=== PATIENT | male | born 1960 | race Caucasian/White ===

== ENCOUNTER 2016-04-30 | Outpatient (CLI) | payer MEDICARE, MEDICAID | END 2016-04-30 23:59 | disposition critical access hospital (66) | CPT/HCPCS: A0425; A0429 ==

== ENCOUNTER 2016-04-30 20:45 | Emergency (ER) | payer MEDICARE, MEDICAID ==
[2016-04-30] MEDS ORDERED: SODIUM CHLORIDE 0.9% 1,000 ML IV ONE (21:03)
[2016-04-30] MEDS ORDERED: diazePAM INJ 5 MG/ML SYRINGE IVP STA (21:03)
[2016-04-30] MEDS ORDERED: fentaNYL 100 MCG/2 ML VIAL IVP STA ×2 (21:03→21:53)
[2016-04-30] MEDS ORDERED: fentaNYL 100 MCG/2 ML VIAL ONE ×2 (21:20→21:58)
[2016-04-30] MEDS ORDERED: diazePAM INJ 5 MG/ML SYRINGE ONE (21:20)
[2016-04-30] MEDS ORDERED: NITROGLYCERIN SL 0.4 MG TABLET SL STA (21:37)
[2016-04-30] MEDS ORDERED: GLUCAGON 1 MG/ML VIAL IVP STA (21:38)
[2016-04-30] MEDS ORDERED: NITROGLYCERIN SL 0.4 MG TABLET SL ONE (21:45)
[2016-04-30] MEDS ORDERED: GLUCAGON 1 MG/ML VIAL ONE (21:45)
[2016-04-30] MEDS ORDERED: WATER FOR INJECTION,STERILE 10 ML ONE (21:48)
[2016-04-30] MEDS ORDERED: HYDROmorphone 1 MG/ML SYRINGE IVP STA (22:47)
[2016-04-30] MEDS ORDERED: HYDROmorphone 1 MG/ML SYRINGE ONE (22:51)
== END 2016-04-30 23:48 | disposition short-term general hospital (02) ==
DX: T18.128A Food in esophagus causing other injury, initial encounter (principal); X58.XXXA Exposure to other specified factors, initial encounter; E11.9 Type 2 diabetes mellitus without complications; Z79.4 Long term (current) use of insulin; G40.909 Epilepsy, unspecified, not intractable, without status epilepticus
CPT/HCPCS: 36415; 71010; 80053; 83690; 85025; 93005; 93010; 96361; 96374; 96375; 96376; 99284; 99285; A9270; J1170

== ENCOUNTER 2016-05-01 | Outpatient (CLI) | payer MEDICARE, MEDICAID | END 2016-05-01 00:01 | disposition short-term general hospital (02) | CPT/HCPCS: A0170; A0425; A0426 ==

== ENCOUNTER 2017-10-22 03:17 | Outpatient (CLI) | payer MEDICARE, MEDICAID | END 2017-10-22 03:18 | disposition critical access hospital (66) | LOC: EMS 03:17 | PROVIDERS: ATTEND Surgery | DX: S09.90XA Unspecified injury of head, initial encounter (principal); R10.9 Unspecified abdominal pain; R55 Syncope and collapse; W18.39XA Other fall on same level, initial encounter; Y92.031 Bathroom in apartment as the place of occurrence of the external cause | CPT/HCPCS: A0425; A0429 ==

== ENCOUNTER 2017-10-22 03:36 | Inpatient (IN) | payer MEDICARE, MEDICAID ==
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
[2017-10-22] MEDS ORDERED: MORPHINE 10 MG/ML VIAL IVP STA ×2 (04:07→04:55)
[2017-10-22 04:38] LABS: BASOPHILS % (AUTO) 0.2 %; EOSINOPHILS # (AUTO) 0.2 10^3/uL (0.0-0.7); EOSINOPHILS % (AUTO) 1.6 %; HGB - HEMOGLOBIN 13.5 g/dL (14.0-18.0); LYMPHOCYTES # (AUTO) 1.1 10^3/uL (1.5-3.5); LYMPHOCYTES % (AUTO) 8.9 %; MEAN CORPUSCULAR HEMOGLOBIN 29.7 pg (27.0-31.0); MEAN CORPUSCULAR HGB CONC 33.5 g/dL (32.0-36.0); MEAN CORPUSCULAR VOLUME 88.4 fL (80.0-94.0); MEAN PLATELET VOLUME 8.2 fL (7.4-11.4); MONOCYTES # (AUTO) 0.7 10^3/uL (0.0-1.0); MONOCYTES % (AUTO) 5.8 %; NEUTROPHILS # (AUTO) 10.4 10^3/uL (1.5-6.6); NEUTROPHILS % (AUTO) 83.5 %; PLT - PLATELET COUNT 179 10^3/uL (130-450); RED BLOOD COUNT 4.54 10^6/uL (4.70-6.10); RED CELL DISTRIBUTION WIDTH 15.2 % (12.0-15.0); WHITE BLOOD COUNT 12.5 x10^3/uL (4.8-10.8)
[2017-10-22 04:48] LABS: BUN - BLOOD UREA NITROGEN 12 mg/dL (6-20); CALCIUM 10.1 mg/dL (8.5-10.3); CARBON DIOXIDE - CO2 22 mmol/L (21-32); CHLORIDE 100 mmol/L (101-111); CREATININE 0.5 mg/dL (0.6-1.2); GFR - MDRD 172 (>89); GLUCOSE 337 mg/dL (70-100); SODIUM 131 mmol/L (135-145)
[2017-10-22] MEDS ORDERED: ONDANSETRON 4 MG/2 ML VIAL IVP STA (05:06)
--- NOTE | 2017-10-22 05:19 | CT Report ---
Procedure Date: 10/22/2017 Accession Number: [id number] / [id number] Procedure: CT - Head W/O CPT Code: FULL RESULT: EXAM: CT HEAD EXAM DATE: 10/22/2017 04:36 AM. CLINICAL HISTORY: Fall, loss of consciousness , headache. COMPARISON: None. TECHNIQUE: Multiaxial CT images were obtained from the foramen magnum to the vertex. Reformats: Sagittal and coronal. IV contrast: None. In accordance with CT protocol optimization, one or more of the following dose reduction techniques were utilized for this exam: automated exposure control, adjustment of mA and/or KV based on patient size, or use of iterative reconstructive technique. FINDINGS: Parenchyma: No intraparenchymal hemorrhage. No evidence of mass, midline shift, or CT findings of infarction. Hall-white differentiation is distinct. Extraaxial Spaces: Normal for age. No subdural or epidural collections identified. Ventricles: There is mild prominence of the ventricles. No mass effect. No midline shift. Sinuses and Orbits: Imaged paranasal sinuses, orbits, and mastoids show no significant abnormality. Bones: No evidence of fracture or calvarial defect. Other: There is a right periorbital hematoma.. IMPRESSION: No acute intracranial process. RADIA
--- NOTE | 2017-10-22 05:21 | XRAY Report ---
Procedure Date: 10/22/2017 Accession Number: [id number] / [id number] Procedure: XR - Chest 2 View X-Ray CPT Code: 69981 FULL RESULT: EXAM: CHEST RADIOGRAPHY EXAM DATE: 10/22/2017 04:44 AM. CLINICAL HISTORY: Syncope. COMPARISON: CHEST 1 VIEW 04/30/2016. TECHNIQUE: 2 views. FINDINGS: Lungs/Pleura: No alveolar consolidation or pleural effusion seen. No pneumothorax. Small lung volumes. Mediastinum: Rotated. Heart size upper normal. Other: None. IMPRESSION: 1. Rotated exam with small lung volumes and borderline heart size. RADIA
--- NOTE | 2017-10-22 05:50 | CT Report ---
Procedure Date: 10/22/2017 Accession Number: [id number] / [id number] Procedure: CT - Facial Bones W/O CPT Code: FULL RESULT: EXAM: CT MAXILLOFACIAL WITHOUT CONTRAST EXAM DATE: 10/22/2017 04:59 AM. CLINICAL HISTORY: Fall, right facial pain, swelling. COMPARISONS: None. TECHNIQUE: Thin-section axial images were acquired of the face without contrast. Post-processing: Coronal and sagittal reformats. Other: None. In accordance with CT protocol optimization, one or more of the following dose reduction techniques were utilized for this exam: automated exposure control, adjustment of mA and/or KV based on patient size, or use of iterative reconstructive technique. FINDINGS: Orbits: There is a right periorbital hematoma. Globe appears intact. Posterior to the right globe there are linear bands of fluid or hemorrhage. There is no proptosis. Left orbit unremarkable. Soft tissues: Otherwise unremarkable. Bones: There are fractures of bilateral intranasal bones. No additional fracture or bone lesion. Temporomandibular Joints: The temporomandibular joints are symmetric and normally located. Sinuses: Normal. No mucosal thickening or fluid levels. Other: None. IMPRESSION: 1. Mildly angulated anterior nasal bone fractures. No additional maxillofacial fracture. 2. Right periorbital hematoma and right intraorbital hemorrhage or edema without significant mass effect. RADIA
--- NOTE | 2017-10-22 05:54 | CT Report ---
Procedure Date: 10/22/2017 Accession Number: [id number] / [id number] Procedure: CT - Cervical Spine W/O CPT Code: FULL RESULT: EXAM: CT CERVICAL SPINE WITHOUT CONTRAST DATE: 10/22/2017 05:00 AM. HISTORY: Fall, neck pain. COMPARISONS: None. TECHNIQUE: Thin-section axial images were acquired of the cervical spine without contrast. Post-processing: Coronal and sagittal reformats. Other: None. In accordance with CT protocol optimization, one or more of the following dose reduction techniques were utilized for this exam: automated exposure control, adjustment of mA and/or KV based on patient size, or use of iterative reconstructive technique. FINDINGS: Alignment: No scoliosis or spondylolisthesis. Bones: No fracture or bone lesion. Interspace Levels/Facets: There are disk osteophyte complexes with mild central canal narrowing at C3-C4, C4-C5, C5-C6, and C6-C7. There is mild right C3-C4, moderate right C4-C5, mild bilateral C5-C6, and mild left C6-C7 neural foraminal narrowing. Musculature: Normal. No fatty atrophy. Other: The paravertebral and prevertebral soft tissues are unremarkable. The lung apices are clear. IMPRESSION: No evidence of cervical spine fracture. RADIA
[2017-10-22] MEDS ORDERED: SODIUM CHLORIDE 0.9% 1,000 ML IV STA (06:01)
[2017-10-22] MEDS: FAMOTIDINE 20 MG TABLET PO SCH (13:29)
[2017-10-22] MEDS: INSULIN ASPART 300 UNIT/3 ML PEN SUBQ SCH ×3 (13:29→21:57)
[2017-10-22] MEDS: oxyCODONE 5 MG TABLET PO PRN (13:32)
[2017-10-22] MEDS: ACETAMINOPHEN 325 MG TABLET PO PRN ×2 (13:32→17:19)
[2017-10-22] MEDS: carBAMazepine ER 200 MG TABLET PO SCH ×2 (13:33→19:58)
[2017-10-22] MEDS: SODIUM CHLORIDE FLUSH 0.9% 10 ML SYRINGE IVP SCH ×2 (13:34→16:08)
[2017-10-22] MEDS: SODIUM CHLORIDE 0.9% 1,000 ML IV SCH (13:36)
[2017-10-22 13:49] LABS: MUDS CUTOFF CONCENTRATIONS CUTOFF CONC BELOW:
[2017-10-22 14:01] LABS: AMPHETAMINE SCREEN,URINE NEGATIVE (NEGATIVE); BENZODIAZEPINES SCREEN, URINE NEGATIVE (NEGATIVE); COCAINE SCREEN URINE NEGATIVE (NEGATIVE); METHADONE SCREEN, URINE NEGATIVE (NEGATIVE); METHAMPHETAMINES SCREEN, URINE NEGATIVE (NEGATIVE); OPIATE SCREEN, URINE POSITIVE (NEGATIVE); OXYCODONE SCREEN, URINE NEGATIVE (NEGATIVE); PROPOXYPHENE SCREEN, URINE NEGATIVE (NEGATIVE); TRICYCLIC ANTIDEPRESSANT,URINE NEGATIVE (NEGATIVE)
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
[2017-10-22] MEDS: HYDROmorphone 1 MG/ML CARPUJECT IVP PRN ×2 (18:21→21:56)
[2017-10-22] MEDS: SODIUM CHLORIDE FLUSH 0.9% 10 ML SYRINGE IVP PRN ×2 (18:21→21:56)
[2017-10-22] MEDS: INSULIN GLARGINE 300 UNIT/3 ML PEN SUBQ SCH (18:21)
[2017-10-22] MEDS: ACETAMINOPHEN 325 MG TABLET PO SCH ×2 (19:25→19:58)
[2017-10-22] MEDS: ATORVASTATIN 40 MG TABLET PO SCH (19:58)
[2017-10-22] MEDS: BACITRACIN/POLYMYXIN OPHTH OINT 3.5 GM RIGHTEYE SCH ×2 (19:59→20:00)
--- NOTE | 2017-10-23 00:18 | Ultrasound Report ---
Procedure Date: 10/22/2017 Accession Number: [id number] / [id number] Procedure: US - Carotid Doppler Complete CPT Code: FULL RESULT: EXAM: BILATERAL CAROTID AND VERTEBRAL ARTERY DUPLEX DOPPLER ULTRASOUND: EXAM DATE: 10/22/2017 09:05 PM CLINICAL HISTORY: Syncope and collapse. COMPARISON: None. TECHNIQUE: Grayscale imaging, color Doppler, and duplex spectral Doppler were used to evaluate the carotid and vertebral arteries bilaterally. Static images were obtained. FINDINGS: Grayscale evaluation of the carotid arteries demonstrates moderate primarily calcified plaque throughout both internal carotid and right greater than left distal common carotid arteries. Normal antegrade flow is present in bilateral vertebral arteries. VELOCITIES (cm/sec): Right: RCCA Prox: PSV 78.8 cm/sec. RCCA Dist: PSV 78.8 cm/sec, EDV 19.5 cm/sec. RECA: PSV 170.3 cm/sec. R Bulb: PSV 52.2 cm/sec, EDV 2.1 cm/sec, ICA/CCA ratio .7. JULIETA Prox: PSV 126.6 cm/sec, EDV 25.8 cm/sec, ICA/CCA ratio 1.6. JULIETA Mid: PSV 74 cm/sec, EDV 24.7 cm/sec, ICA/CCA ratio 1.0. JULIETA Dist: PSV 59.4 cm/sec, EDV 22.4 cm/sec, ICA/CCA ratio .7. RVA: PSV 46.7 cm/sec. RVA flow direction: Antegrade. Left: LCCA Prox: PSV 87.8 cm/sec. LCCA Dist: PSV 85.6 cm/sec, EDV 22.9 cm/sec. LECA: PSV 122.9 cm/sec. L Bulb: PSV 100.8 cm/sec, EDV 24.4 cm/sec, ICA/CCA ratio 1.2. LICA Prox: PSV 68.1 cm/sec, EDV 27.1 cm/sec, ICA/CCA ratio .8. LICA Mid: PSV 70.0 cm/sec, EDV 42.0 cm/sec, ICA/CCA ratio .8. LICA Dist: PSV 66.3 cm/sec, EDV 28 cm/sec, ICA/CCA ratio .8. LVA: PSV 49.3 cm/sec. LVA flow direction: Antegrade. ICA diameter stenosis: Right: <50% by velocity and <70% by NASCET criteria. Left: <50% by velocity and <70% by NASCET criteria. IMPRESSION: 1. Moderate bilateral distal common and internal carotid artery atheromatous plaque with no hemodynamically significant stenosis. General Recommendations: Stenosis =50% ICA - Follow-up ultrasound 6-12 months Stenosis <50% ICA - High Risk Patient with plaque - Follow-up ultrasound 1-2 years Normal Study but High Risk Patient - Follow-up ultrasound 3-5 years Management recommendations and diagnostic criteria are based on current IAC endorsed standards in Carotid Artery Stenosis: Grayscale and Doppler Ultrasound Diagnosis. Validated velocity measurements with angiographic measurements and velocity criteria are extrapolated from diameter data as defined by the Society of Radiologists in Ultrasound Consensus Conference Radiology 2003; 229;340-346. RADIA
[2017-10-23] MEDS: oxyCODONE 5 MG TABLET PO PRN ×2 (01:19→12:58)
[2017-10-23] MEDS: ACETAMINOPHEN 325 MG TABLET PO SCH ×5 (01:19→21:45)
[2017-10-23] MEDS: SODIUM CHLORIDE 0.9% 1,000 ML IV SCH ×3 (02:42→22:42)
[2017-10-23] MEDS: HYDROmorphone 1 MG/ML CARPUJECT IVP PRN ×8 (02:49→22:38)
[2017-10-23] MEDS: SODIUM CHLORIDE FLUSH 0.9% 10 ML SYRINGE IVP PRN ×2 (02:49→05:26)
[2017-10-23] MEDS: SODIUM CHLORIDE FLUSH 0.9% 10 ML SYRINGE IVP SCH ×3 (03:27→17:23)
[2017-10-23 06:55] LABS: BASOPHILS % (AUTO) 0.1 %; EOSINOPHILS # (AUTO) 0.3 10^3/uL (0.0-0.7); EOSINOPHILS % (AUTO) 4.7 %; LYMPHOCYTES # (AUTO) 1.9 10^3/uL (1.5-3.5); LYMPHOCYTES % (AUTO) 31.9 %; MEAN CORPUSCULAR HEMOGLOBIN 29.8 pg (27.0-31.0); MEAN CORPUSCULAR HGB CONC 33.4 g/dL (32.0-36.0); MEAN CORPUSCULAR VOLUME 89.3 fL (80.0-94.0); MEAN PLATELET VOLUME 8.2 fL (7.4-11.4); MONOCYTES # (AUTO) 0.4 10^3/uL (0.0-1.0); MONOCYTES % (AUTO) 7.2 %; NEUTROPHILS # (AUTO) 3.4 10^3/uL (1.5-6.6); NEUTROPHILS % (AUTO) 56.1 %; PLT - PLATELET COUNT 159 10^3/uL (130-450); RED BLOOD COUNT 4.04 10^6/uL (4.70-6.10); RED CELL DISTRIBUTION WIDTH 15.2 % (12.0-15.0)
[2017-10-23 07:08] LABS: ALBUMIN 3.4 g/dL (3.2-5.5); ALBUMIN/GLOBULIN RATIO 1.3 (1.0-2.2); BILIRUBIN,TOTAL 0.5 mg/dL (0.2-1.0); CALCIUM 9.1 mg/dL (8.5-10.3); CREATININE 0.4 mg/dL (0.6-1.2)
[2017-10-23 08:19] LABS: HB2 TOTAL 11.9 g/dL; HEMOGLOBIN A1C 1.08 g/dL; HEMOGLOBIN A1C % 10.5 % (4.6-6.2)
[2017-10-23] MEDS: INSULIN ASPART 300 UNIT/3 ML PEN SUBQ SCH ×4 (08:30→21:44)
[2017-10-23] MEDS: carBAMazepine ER 200 MG TABLET PO SCH ×2 (08:32→21:45)
[2017-10-23] MEDS: FENOFIBRATE 160 MG PO SCH (08:33)
[2017-10-23] MEDS: BACITRACIN/POLYMYXIN OPHTH OINT 3.5 GM RIGHTEYE SCH ×4 (08:33→21:45)
[2017-10-23] MEDS: FOLIC ACID 1 MG TABLET PO SCH (08:33)
[2017-10-23] MEDS: FAMOTIDINE 20 MG TABLET PO SCH (08:33)
[2017-10-23] MEDS: POLYETHYLENE GLYCOL 3350 17 GM PACKET PO SCH (08:34)
[2017-10-23] MEDS: ONDANSETRON ODT 4 MG TABLET TL PRN (10:39)
[2017-10-23] MEDS: INSULIN GLARGINE 300 UNIT/3 ML PEN SUBQ SCH (17:27)
[2017-10-23] MEDS: ATORVASTATIN 40 MG TABLET PO SCH (21:44)
--- NOTE | 2017-10-23 22:52 | PROVIDER PROGRESS NOTE ---
Subjective - Prog Note Date Prog Note Date: 10/23/17 Prog Note Time: 08:00 - Subjective Pt reports feeling: Improved Subjective: Lenoard states that his eye is "a little less sore". He denies any new symptoms such as increased shortness of breath, chest pain, nausea, vomiting, or a new cough. He states that he is eating ok. Current Medications - Current Medications Current Medications: Active Medications Acetaminophen (Tylenol) 650 mg PO Q4HR [facility] Last Admin: 10/23/17 21:45 Dose: 650 mg Atorvastatin Calcium (Lipitor) 40 mg PO QPM [facility] Last Admin: 10/23/17 21:44 Dose: 40 mg Bacitracin/Polymyxin B Sulfate (Polysporin Ophth Oint) 1 applic RIGHTEYE QID [facility] Last Admin: 10/23/17 21:45 Dose: 1 applic Carbamazepine (Tegretol Xr) 800 mg PO BID [facility] Last Admin: 10/23/17 21:45 Dose: 800 mg Famotidine (Pepcid) 20 mg PO DAILY [facility] Last Admin: 10/23/17 08:33 Dose: 20 mg Folic Acid () 1 mg PO DAILY [facility] Last Admin: 10/23/17 08:33 Dose: 1 mg Hydromorphone HCl (Dilaudid Inj Carp) 1 mg IVP Q2HR PRN PRN Reason: PAIN Last Admin: 10/23/17 22:38 Dose: 1 mg Insulin Aspart (Novolog) 1 - 5 unit SUBQ 0800,1200,1700,2100 [facility] PRN Reason: Protocol Last Admin: 10/23/17 21:44 Dose: 1 unit Insulin Glargine (Lantus Solostar) 40 unit SUBQ DAILY [facility] Ondansetron HCl (Zofran Odt) 4 mg TL Q6HR PRN PRN Reason: Nausea / Vomiting Last Admin: 10/23/17 10:39 Dose: 4 mg Oxycodone HCl (Roxicodone) 5 mg PO BID PRN PRN Reason: PAIN Last Admin: 10/23/17 12:58 Dose: 5 mg (Canagliflozin [ Invokana] 100 Mg) Tab 1 each PO DAILY [facility] Last Admin: 10/23/17 08:33 Dose: 1 each (Exenatide [Byetta] (10 Mcg) Inj) 1 each SUBQ BIDAC [facility] Last Admin: 10/22/17 16:06 Dose: 1 each (Fenofibrate [ Fenofibrate] 160 Mg) Capsule 1 each PO DAILY [facility] Last Admin: 10/23/17 08:33 Dose: Not Given Polyethylene Glycol (Miralax) 17 gm PO DAILY [facility] Last Admin: 10/23/17 08:34 Dose: Not Given Sodium Chloride (Normal Saline Flush 0.9%) 10 ml IVP PRN PRN PRN Reason: NEEDED PER PROVIDER ORDERS Last Admin: 10/23/17 05:26 Dose: 10 ml Sodium Chloride (Normal Saline Flush 0.9%) 10 ml IVP 0100,0900,1700 [facility] Last Admin: 10/23/17 17:23 Dose: Not Given Insulin Glargine [Lantus] 35 unit SUBQ 1700 08/09/12 Metformin HCl [Metformin HCl ER] 1,000 mg PO BIDWM 08/09/12 Atorvastatin Calcium 40 mg PO QPM 10/22/17 Canagliflozin [Invokana] 100 mg PO DAILY 10/22/17 Carbamazepine [Carbamazepine ER] 800 mg PO BID 10/22/17 Exenatide [Byetta] 10 mcg SUBQ BIDAC 10/22/17 Fenofibrate [Fenofibrate] 160 mg PO DAILY 10/22/17 Folic Acid [Folic Acid] 1 mg PO DAILY 10/22/17 Isradipine [Isradipine] 5 mg PO DAILY 10/22/17 Lisinopril 10 mg PO DAILY 10/22/17 Oxycodone HCl 5 mg PO BID PRN 10/22/17 Objective - Vital Signs/Intake & Output Reviewed Vital Signs: Yes Vital Signs: Vital Signs x48h Temp Pulse Resp BP Pulse Ox 10/23/17 20:35 36.8 C 80 20 139/65 H 97 10/23/17 15:22 36.4 C L 76 20 112/69 96 Intake & Output: Intake & Output 10/20/17 10/21/17 10/22/17 10/23/17 23:59 23:59 23:59 23:59 Intake Total 1720 4216.667 Output Total 600 975 Balance 1120 3241.667 - Objective General Appearance: positive: No acute distress, Alert, Anxious Eyes Bilateral: positive: Other (right eye orbit has errythema, less overall swelling, and is still very painful during the exam.) Eyes: OD Abnormal EOM, OD Lid inflammation, OU Abnormal pupil (pin point bilateral pupils- no changes from 24 hours earlier) ENT: positive: ENT inspection nml, Pharynx nml, No signs of dehydration Neck: positive: Nml inspection, Thyroid nml, No JVD, Lymphadenopathy (R), Lymphadenopathy (L), Stiff neck Respiratory: positive: Chest non-tender, No respiratory distress, Breath sounds nml Cardiovascular: positive: Regular rate & rhythm, Systolic murmur, Decreased pulse(s) Peripheral Pulses: 1+ Radial (R), 1+ Radial (L) Abdomen: positive: Non-tender, Nml bowel sounds, Other (obese, soft) Skin: positive: No rash, Warm, Dry Extremities: positive: Non-tender, Full ROM, Pedal edema, Joint swelling Neurologic/Psychiatric: positive: Oriented x3, CN's nml (2-12), Motor nml, Sensation nml, Weakness, Depressed mood/affect Reflexes: Bicep (R): 3+, Bicep (L): 3+ - Lab Results Fish Bones: 10/23/17 05:54 10/23/17 05:54 Other Labs: Lab Results x24hrs 10/23/17 10/23/17 10/23/17 Range/Units 05:54 05:54 05:54 WBC (4.8-10.8) x10^3/uL RBC (4.70-6.10) 10^6/uL Hgb (14.0-18.0) g/dL Hct (42.0-52.0) % MCV (80.0-94.0) fL MCH (27.0-31.0) pg MCHC (32.0-36.0) g/dL RDW (12.0-15.0) % Plt Count (130-450) 10^3/uL MPV (7.4-11.4) fL Neut # (Auto) (1.5-6.6) 10^3/uL Lymph # (Auto) (1.5-3.5) 10^3/uL Pierce # (Auto) (0.0-1.0) 10^3/uL Eos # (Auto) (0.0-0.7) 10^3/uL Baso # (Auto) (0.0-0.1) 10^3/uL Absolute Nucleated RBC x10^3/uL Nucleated RBC % /100WBC Sodium 136 (135-145) mmol/L Potassium 3.7 (3.5-5.0) mmol/L Chloride 106 (101-111) mmol/L Carbon Dioxide 24 (21-32) mmol/L Anion Gap 6.0 (6-13) BUN 14 (6-20) mg/dL Creatinine 0.4 L (0.6-1.2) mg/dL Estimated GFR (MDRD) 223 (>89) Glucose 147 H (70-100) mg/dL Glycated Hemoglobin (4.6-6.2) % Estim Average Glucose (70-100) Calcium 9.1 (8.5-10.3) mg/dL Magnesium 1.8 (1.7-2.8) mg/dL Total Bilirubin 0.5 (0.2-1.0) mg/dL AST 17 (10-42) IU/L ALT 26 (10-60) IU/L Alkaline Phosphatase 73 (42-121) IU/L Total Protein 6.0 L (6.7-8.2) g/dL Albumin 3.4 (3.2-5.5) g/dL Globulin 2.6 (2.1-4.2) g/dL Albumin/Globulin Ratio 1.3 (1.0-2.2) TSH 1.48 (0.34-5.60) uIU/mL 10/23/17 10/23/17 Range/Units 05:54 05:54 WBC 6.0 (4.8-10.8) x10^3/uL RBC 4.04 L (4.70-6.10) 10^6/uL Hgb 12.0 L (14.0-18.0) g/dL Hct 36.1 L (42.0-52.0) % MCV 89.3 (80.0-94.0) fL MCH 29.8 (27.0-31.0) pg MCHC 33.4 (32.0-36.0) g/dL RDW 15.2 H (12.0-15.0) % Plt Count 159 (130-450) 10^3/uL MPV 8.2 (7.4-11.4) fL Neut # (Auto) 3.4 (1.5-6.6) 10^3/uL Lymph # (Auto) 1.9 (1.5-3.5) 10^3/uL Pierce # (Auto) 0.4 (0.0-1.0) 10^3/uL Eos # (Auto) 0.3 (0.0-0.7) 10^3/uL Baso # (Auto) 0.0 (0.0-0.1) 10^3/uL Absolute Nucleated RBC 0.01 x10^3/uL Nucleated RBC % 0.1 /100WBC Sodium (135-145) mmol/L Potassium (3.5-5.0) mmol/L Chloride (101-111) mmol/L Carbon Dioxide (21-32) mmol/L Anion Gap (6-13) BUN (6-20) mg/dL Creatinine (0.6-1.2) mg/dL Estimated GFR (MDRD) (>89) Glucose (70-100) mg/dL Glycated Hemoglobin 10.5 H (4.6-6.2) % Estim Average Glucose 255 H (70-100) Calcium (8.5-10.3) mg/dL Magnesium (1.7-2.8) mg/dL Total Bilirubin (0.2-1.0) mg/dL AST (10-42) IU/L ALT (10-60) IU/L Alkaline Phosphatase (42-121) IU/L Total Protein (6.7-8.2) g/dL Albumin (3.2-5.5) g/dL Globulin (2.1-4.2) g/dL Albumin/Globulin Ratio (1.0-2.2) TSH (0.34-5.60) uIU/mL - Diagnostic Imaging Diagnostic Imaging Results: positive: Final report reviewed ABX Reporting Has patient been on IV antibiotics over the past 48 hours?: No Assessment/Plan - Problem List (1) Syncope and collapse Impression: The patient denies previous episodes of fainting. All testing thus far is not leading to a cardiac cause of this syncopal episode. The most likely cause still remains as taking inappropriate mixture of medications; leading to severe hypotension or severe hypoglycemia. The patient denies suicidal ideation for a possible intentional overdose. A head MRI was ordered for completeness of this work up, although this may have to be done on an out patient basis. Plan: Continue syncope work up and monitor for further episodes. Continue telemetry monitoring. (2) Blunt injury, right eye Impression: Opthalologist, Dr. Zimmerman gave a preliminary recommendation to have the patient be seen as out patient as soon as Wednesday. The type of surgery, if needed, would require a waiting time of about 5-7 days after the injury, but the extent of this eye injury is not known since the equipment necessary is not readily available in the inpatient hospital setting. The patient's right eye is overall improved since his admission and he can make attempts to open his upper lid. I can appreciate a positive red reflex today, which confirms that no acute bleeding is occurring. The patient continues to attest to being able to see objects, light, but they are blurred. This injury does not seem to affect his balance or ambulation. Plan: Continue with syncope work up and plan to discharge with prompt out patient full eye exam. Qualifiers: Encounter type: initial encounter Qualified Code(s): S05.8X1A - Other injuries of right eye and orbit, initial encounter (3) Head injury Impression: The patient has a history of this and this episode resulted in no cranial fractures, or bleeding. He complains of a headache, and a neck ache. He has a history of a seizure disorder. Plan: Continue to treat acute pain and monitor for changes in mental status. Qualifiers: Encounter type: subsequent encounter Qualified Code(s): S09.90XD - Unspecified injury of head, subsequent encounter (4) Diabetes mellitus type 2 in obese Impression: A hemoglobin A1C was ordered and found to be very elevated at 10.4%. The patient takes 4 medications for his diabetes including Lantus 35 units daily, Byetta, Invokana and Metformin. This is clearly not beneficial for him based on this A1C level, and we will formulate a better combination to prevent syncope and a sentinel event from reoccuring. Plan: Continue to hold metformin. Continue Lantus, SSI and blood sugar checks AC/HS. (5) OCD (obsessive compulsive disorder) Impression: The patient speaks about the same topics in a repeat fashion. He admits to obcessive behaviors at home with his daily cleaning routine. Plan: Consider medication to treat upon discharge. Qualifiers: Obsessive-compulsive disorder type: mixed obsessional thoughts and acts Qualified Code(s): F42.2 - Mixed obsessional thoughts and acts (6) Polypharmacy Impression: As per pharmacy review, the patient had an Invokana bottle with lisinopril, and atorvastatin mixed in the same bottle. He takes at least 11 different prescribed medications, not including OTC medications. Social work met with him and was able to find community resources and suggest a home health nurse visit and social work to be ordered as a home health need upon discharge. Plan: Continue to monitor and review meds in order to reduce amounts. (7) Seizure disorder Impression: The patient denies having a regular neurologist, but is prescribed Tegretol daily. He denies recent episodes, although this is still on the differential diagnosis list. Plan: Check a Tegretol serum blood level in the AM. (8) Anemia Impression: The patient has a suspected folate deficiency anemia based on his home medication of folic acid. I have ordered iron studies for the AM and his H/H today is considered low at 12.0 and 36.1. Plan: Await iron studies and continue folic acid. Qualifiers: Anemia type: folate deficiency
[2017-10-24] MEDS: ONDANSETRON ODT 4 MG TABLET TL PRN (00:04)
[2017-10-24] MEDS: SODIUM CHLORIDE FLUSH 0.9% 10 ML SYRINGE IVP SCH ×4 (00:04→17:59)
[2017-10-24] MEDS: HYDROmorphone 1 MG/ML CARPUJECT IVP PRN ×7 (00:42→22:05)
[2017-10-24] MEDS: SODIUM CHLORIDE FLUSH 0.9% 10 ML SYRINGE IVP PRN ×5 (00:43→22:05)
[2017-10-24] MEDS: ACETAMINOPHEN 325 MG TABLET PO SCH ×7 (02:00→23:56)
[2017-10-24] MEDS: oxyCODONE 5 MG TABLET PO PRN ×3 (02:01→20:53)
[2017-10-24 06:17] LABS: BASOPHILS % (AUTO) 0.2 %; EOSINOPHILS # (AUTO) 0.2 10^3/uL (0.0-0.7); EOSINOPHILS % (AUTO) 3.4 %; HGB - HEMOGLOBIN 12.3 g/dL (14.0-18.0); LYMPHOCYTES # (AUTO) 1.4 10^3/uL (1.5-3.5); LYMPHOCYTES % (AUTO) 22.3 %; MEAN CORPUSCULAR HGB CONC 34.5 g/dL (32.0-36.0); MEAN PLATELET VOLUME 8.2 fL (7.4-11.4); MONOCYTES # (AUTO) 0.4 10^3/uL (0.0-1.0); MONOCYTES % (AUTO) 6.9 %; NEUTROPHILS # (AUTO) 4.3 10^3/uL (1.5-6.6); NEUTROPHILS % (AUTO) 67.2 %; PLT - PLATELET COUNT 168 10^3/uL (130-450); RED BLOOD COUNT 4.12 10^6/uL (4.70-6.10); WHITE BLOOD COUNT 6.3 x10^3/uL (4.8-10.8)
[2017-10-24 06:26] LABS: ALBUMIN 3.5 g/dL (3.2-5.5); ALBUMIN/GLOBULIN RATIO 1.2 (1.0-2.2); BILIRUBIN,TOTAL 0.6 mg/dL (0.2-1.0); CALCIUM 9.1 mg/dL (8.5-10.3); CREATININE 0.4 mg/dL (0.6-1.2); TOTAL PROTEIN 6.4 g/dL (6.7-8.2)
[2017-10-24 06:44] LABS: % IRON SATURATION 13 % (20-50); CARBAMAZEPINE (TEGRETOL) 6.9 ug/mL; IRON 40 ug/dL (45-182); TOTAL IRON BINDING CAPACITY 316 ug/dL (250-450); TRANSFERRIN 226 mg/dL (180-329)
--- NOTE | 2017-10-24 07:52 | CONSULTATION NOTE ---
DATE OF SERVICE: 10/22/2017 Physician: Ruddy Zimmerman MD please verify date of service - none given Dictated 10/23 for consult 10/22? Thanks - please remove this note & s before signing HISTORY OF PRESENT ILLNESS: Patient was admitted yesterday to the med/surg [facility] in room 2200 after a syncopal episode and blunt trauma to his right eye. He awoke with blood on the floor and was transported to the emergency room. Dr. Kofi Rocha called me yesterday morning, informed me of the situation, and was curious whether or not he needed to be seen. Pt had a lid laceration but Dr. Rocha felt confident that the patient did not have an open globe. Nurse Practitioner Racheal Taylor on the ortiz noted that he had a good red reflex on her exam on the ortiz. PHYSICAL EXAMINATION: On exam, patient has hand motion and an obvious upper lid and lower lid hematoma with moderate swelling. His intraocular pressure to palpation through the lids appeared to be about 20, both eyes. The right lids are swollen shut and are painful to the touch. He did allow me to lift his lid to externally examine the eye. He had full range of motion of both eyes. Both globes appeared well formed with shallow chambers. There was an obvious temporal subconjunctival hemorrhage of the right eye. Both pupils were 2 mm in diameter. Neither appeared to react to light but there was no relative afferent pupillary defect. Both corneas appeared clear. I was not able to elicit a red reflex through the 2 mm pupil with light sources I had on hand, and the patient has difficulty cooperating and looking in the direction I would tell him to. There was no obvious cataract through the 2 mm pupils. ANALYSIS: This is a 57-year-old male with diabetes, admitted for syncope with ancillary findings of eye trauma. His vision, as best as I could ascertain, was hand motion vision. He says that he did have normal vision in both eyes prior to this incident. He has no flashes, no floaters, no obvious reason for his vision loss. Unlikely due to optic neuropathy based on a normal sized pupil and no RAPD. He also does not appear to have an open globe or a cataract. Most likely diagnosis would be a macula-off retinal detachment or a rather large vitreous hemorrhage. There is also the possibility of a choroidal effusion or hemorrhage , although doubtful. Plan was for him to be discharged from the hospital and to see me once discharged for a full microscopic eye exam with dilation in an effort to determine the reason for vision loss then further disposition and treatment at that point. TD: 10/23/2017 12:05 DONNELL
[2017-10-24] MEDS: INSULIN ASPART 300 UNIT/3 ML PEN SUBQ SCH ×4 (08:21→20:54)
[2017-10-24] MEDS: carBAMazepine ER 200 MG TABLET PO SCH ×2 (08:39→20:54)
[2017-10-24] MEDS: FAMOTIDINE 20 MG TABLET PO SCH (08:40)
[2017-10-24] MEDS: FOLIC ACID 1 MG TABLET PO SCH (08:40)
[2017-10-24] MEDS: BACITRACIN/POLYMYXIN OPHTH OINT 3.5 GM RIGHTEYE SCH ×4 (08:41→21:06)
[2017-10-24] MEDS: FENOFIBRATE 160 MG PO SCH (08:45)
[2017-10-24] MEDS ORDERED: INSULIN GLARGINE 300 UNIT/3 ML PEN SUBQ SCH (09:00)
[2017-10-24] MEDS: POLYETHYLENE GLYCOL 3350 17 GM PACKET PO SCH (11:27)
[2017-10-24] MEDS: ATORVASTATIN 40 MG TABLET PO SCH ×2 (20:52→20:53)
[2017-10-25] MEDS: HYDROmorphone 1 MG/ML CARPUJECT IVP PRN ×3 (00:07→06:15)
[2017-10-25] MEDS: SODIUM CHLORIDE FLUSH 0.9% 10 ML SYRINGE IVP PRN ×3 (00:08→06:15)
[2017-10-25] MEDS: SODIUM CHLORIDE FLUSH 0.9% 10 ML SYRINGE IVP SCH ×2 (00:08→08:15)
[2017-10-25] MEDS: ONDANSETRON ODT 4 MG TABLET TL PRN (00:16)
[2017-10-25 05:51] LABS: BASOPHILS % (AUTO) 0.3 %; EOSINOPHILS # (AUTO) 0.2 10^3/uL (0.0-0.7); EOSINOPHILS % (AUTO) 4.5 %; HGB - HEMOGLOBIN 12.5 g/dL (14.0-18.0); LYMPHOCYTES # (AUTO) 1.3 10^3/uL (1.5-3.5); LYMPHOCYTES % (AUTO) 26.6 %; MEAN CORPUSCULAR HEMOGLOBIN 29.6 pg (27.0-31.0); MEAN CORPUSCULAR HGB CONC 33.4 g/dL (32.0-36.0); MEAN CORPUSCULAR VOLUME 88.6 fL (80.0-94.0); MEAN PLATELET VOLUME 8.3 fL (7.4-11.4); MONOCYTES # (AUTO) 0.4 10^3/uL (0.0-1.0); MONOCYTES % (AUTO) 7.8 %; NEUTROPHILS % (AUTO) 60.8 %; PLT - PLATELET COUNT 165 10^3/uL (130-450); RED BLOOD COUNT 4.23 10^6/uL (4.70-6.10); WHITE BLOOD COUNT 4.9 x10^3/uL (4.8-10.8)
[2017-10-25 05:59] LABS: ALBUMIN 3.6 g/dL (3.2-5.5); ALBUMIN/GLOBULIN RATIO 1.2 (1.0-2.2); BILIRUBIN,TOTAL 0.4 mg/dL (0.2-1.0); CREATININE 0.5 mg/dL (0.6-1.2); TOTAL PROTEIN 6.5 g/dL (6.7-8.2)
[2017-10-25] MEDS: ACETAMINOPHEN 325 MG TABLET PO SCH ×2 (06:15→08:48)
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
[2017-10-25 07:54] VITALS: BP 139/81
[2017-10-25] MEDS: FAMOTIDINE 20 MG TABLET PO SCH (08:15)
[2017-10-25] MEDS: POLYETHYLENE GLYCOL 3350 17 GM PACKET PO SCH (08:15)
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
[2017-10-25] MEDS: INSULIN ASPART 300 UNIT/3 ML PEN SUBQ SCH ×2 (08:47→11:40)
[2017-10-25] MEDS: FOLIC ACID 1 MG TABLET PO SCH (08:49)
[2017-10-25] MEDS: carBAMazepine ER 200 MG TABLET PO SCH (08:49)
[2017-10-25] MEDS ORDERED: diazePAM 5 MG TABLET PO SCH (09:00)
[2017-10-25] MEDS ORDERED: INSULIN GLARGINE 300 UNIT/3 ML PEN SUBQ SCH (09:00)
[2017-10-25] MEDS: BACITRACIN/POLYMYXIN OPHTH OINT 3.5 GM RIGHTEYE SCH ×2 (09:30→11:44)
[2017-10-25] MEDS: FENOFIBRATE 160 MG PO SCH (11:43)
[2017-10-25] MEDS: oxyCODONE 5 MG TABLET PO PRN (11:45)
--- NOTE | 2017-10-25 13:06 | Discharge Plan ---
Discharge Plan Disposition: Home, Self Care Condition: Good Prescriptions: Bacitracin/Polymyxin Ophth Oin [Polysporin Ophth Oint] 1 applic GOLD QID #1 tube Diet: Diabetic Activity Restrictions: Activity as Tolerated Shower Restrictions: No Driving Restrictions: Yes Weight Bearing: Full Weight Instruction Topics: Bacitracin Neomycin Polymyxin B skin ointment Additional Instructions or Follow Up instructions: You came to the ED after you had lost consciousness and fallen. You had an injured right eye and a fracture in your nose. This was thought to be stable and were given pain medications for this. You are to go directly from the hospital to see Dr. Zimmerman for a full eye exam. The medication bottles that you brought into the hospital with you were found to be inaccurate and involved some diabetic pills, a blood pressure pill and a cholesterol pill. Because of the description that you gave of the circumstances surrounding your episode including, waking up with no knowledge of your fall, being disorientated after you woke up which you explained as not being able to find your phone at first, and you described being in a full body sweat. All of these details lead us to believe that the most likely cause of your fall and injury was hypoglycemia. You should stop your Byetta and Invokana because your hemoglobin A1C was too high at 10.5%, which shows long standing high blood sugars. You have been under extra stress lately, which also played a role. I have ordered extra services for when you go home. We worked hard to look for a cause of this episode; a full cardiac work up was completed which show no evidence of a cardiac cause. Please see your PCP within one week. No Smoking: If you smoke, Please STOP! Call for help. Follow-up with: Volodymyr Banegas MD [Primary Care Provider] -
== END 2017-10-25 13:30 | disposition home or self-care (01) | DRG 918 ==
LOC: EDUNIT# → ED 03:36 → MS2 11:41
PROVIDERS: ADMIT Nurse Practitioner; ATTEND Nurse Practitioner
DX: T46.4X1A Poisoning by angiotensin-converting-enzyme inhibitors, accidental (unintentional), initial encounter (principal); T38.3X1A Poisoning by insulin and oral hypoglycemic [antidiabetic] drugs, accidental (unintentional), initial encounter; T46.6X1A Poisoning by antihyperlipidemic and antiarteriosclerotic drugs, accidental (unintentional), initial encounter; R55 Syncope and collapse; I95.9 Hypotension, unspecified; E11.9 Type 2 diabetes mellitus without complications; E11.649 Type 2 diabetes mellitus with hypoglycemia without coma; I95.2 Hypotension due to drugs; S02.2XXA Fracture of nasal bones, initial encounter for closed fracture; S01.111A Laceration without foreign body of right eyelid and periocular area, initial encounter; H11.31 Conjunctival hemorrhage, right eye; W18.12XA Fall from or off toilet with subsequent striking against object, initial encounter; Y92.002 Bathroom of unspecified non-institutional (private) residence as the place of occurrence of the external cause; R51 Headache; M54.2 Cervicalgia; D72.829 Elevated white blood cell count, unspecified; E11.65 Type 2 diabetes mellitus with hyperglycemia; D52.9 Folate deficiency anemia, unspecified; F42.2 Mixed obsessional thoughts and acts; F41.9 Anxiety disorder, unspecified; G89.29 Other chronic pain; G40.909 Epilepsy, unspecified, not intractable, without status epilepticus; I10 Essential (primary) hypertension; E78.5 Hyperlipidemia, unspecified; E66.9 Obesity, unspecified; Z79.899 Other long term (current) drug therapy; Z68.36 Body mass index [BMI] 36.0-36.9, adult; Z63.79 Other stressful life events affecting family and household; Z87.828 Personal history of other (healed) physical injury and trauma; Z79.4 Long term (current) use of insulin
CPT/HCPCS: 36415; 70450; 70486; 70540; 70551; 71046; 72125; 80048; 80053; 80156; 80306; 80320; 83036; 83540; 83735; 84443; 84466; 84484; 85025; 93005; 93306; 93880; 96361; 96374; 96375; 96376; 99284; 99285

== ENCOUNTER 2019-03-15 13:52 | Day surgery (SDC) | payer MEDICARE, MEDICAID ==
[2019-03-15] MEDS ORDERED: GLUCAGON 1 MG/ML VIAL IVP STA (14:31)
[2019-03-15] MEDS ORDERED: SODIUM CHLORIDE 0.9% 1,000 ML IV ONE (14:32)
[2019-03-15 14:33] LABS: BASOPHILS # (AUTO) 0.1 10^3/uL (0.0-0.1); BASOPHILS % (AUTO) 0.5 %; EOSINOPHILS # (AUTO) 0.1 10^3/uL (0.0-0.7); EOSINOPHILS % (AUTO) 0.6 %; HGB - HEMOGLOBIN 15.6 g/dL (14.0-18.0); LYMPHOCYTES # (AUTO) 2.1 10^3/uL (1.5-3.5); MEAN CORPUSCULAR HEMOGLOBIN 30.8 pg (27.0-31.0); MEAN CORPUSCULAR HGB CONC 32.6 g/dL (32.0-36.0); MEAN CORPUSCULAR VOLUME 94.3 fL (80.0-94.0); MEAN PLATELET VOLUME 9.5 fL (7.4-11.4); MONOCYTES # (AUTO) 0.9 10^3/uL (0.0-1.0); MONOCYTES % (AUTO) 6.2 %; NEUTROPHILS # (AUTO) 10.8 10^3/uL (1.5-6.6); NEUTROPHILS % (AUTO) 77.2 %; PLT - PLATELET COUNT 230 10^3/uL (130-450); RED BLOOD COUNT 5.07 10^6/uL (4.70-6.10); RED CELL DISTRIBUTION WIDTH 13.7 % (12.0-15.0)
[2019-03-15] MEDS ORDERED: ONDANSETRON 4 MG/2 ML VIAL IVP STA (14:33)
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
[2019-03-15] MEDS ORDERED: WATER FOR INJECTION,STERILE 10 ML ONE (14:37)
[2019-03-15 14:43] LABS: ALBUMIN 4.6 g/dL (3.2-5.5); ALBUMIN/GLOBULIN RATIO 1.4 (1.0-2.2); BILIRUBIN,TOTAL 1.7 mg/dL (0.2-1.0); CALCIUM 11.2 mg/dL (8.5-10.3); CREATININE 0.8 mg/dL (0.6-1.2); TOTAL PROTEIN 7.8 g/dL (6.7-8.2)
--- NOTE | 2019-03-15 15:07 | XRAY Report ---
Reason: chest pain Procedure Date: 03/15/2019 Accession Number: [id number] / [id number] Procedure: XR - Chest 1 View X-Ray CPT Code: 47184 Final Report FULL RESULT: EXAM: CHEST RADIOGRAPHY. EXAM DATE: 03/15/2019 02:52 PM. CLINICAL HISTORY: Chest pain. COMPARISON: CHEST 2 VIEW 10/22/2017 4:44 AM. TECHNIQUE: 1 view. FINDINGS: Radiograph is limited by positioning including rotation and apical lordotic technique. Lungs/Pleura: No focal opacities evident. No pleural effusion. No pneumothorax. Mediastinum: Within exam limitations, the cardiomediastinal contour is normal. Other: None. IMPRESSION: Limited exam with no acute cardiopulmonary abnormality. RADIA
[2019-03-15] MEDS ORDERED: PROPOFOL 200 MG/20 ML VIAL IVP ONE (15:54)
[2019-03-15] MEDS ORDERED: MIDAZOLAM 2 MG/2 ML VIAL IVP ONE (15:54)
[2019-03-15 16:06] LABS: GLUCOSE, URINE (UA) 500 mg/dL (NEGATIVE); KETONES,URINE (UA) >=80 mg/dL (NEGATIVE); LEUKOCYTE ESTERASE, URINE NEGATIVE (NEGATIVE); NITRITE,URINE NEGATIVE (NEGATIVE); OCCULT BLOOD,URINE TRACE-INTA (NEGATIVE); PROTEIN,URINE NEGATIVE (NEGATIVE); UROBILINOGEN,URINE 0.2 (NORMAL) E.U./dL (NORMAL)
[2019-03-15 16:11] LABS: BILIRUBIN,URINE NEGATIVE (NEGATIVE); CLARITY,URINE CLEAR (CLEAR); ICTOTEST,URINE NEGATIVE
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
[2019-03-15] MEDS ORDERED: PROCHLORPERAZINE 10 MG/2 ML VIAL IVP STA (18:07)
[2019-03-15] MEDS ORDERED: LORazepam 2 MG/ML VIAL IVP STA (20:02)
[2019-03-15] MEDS ORDERED: LACTATED RINGERS 1,000 ML IV ONE ×2 (20:42)
[2019-03-15 22:06] VITALS: BP 161/88
== END 2019-03-15 22:52 | disposition home or self-care (01) ==
LOC: ED 13:52 → SDS 15:53 → MS3 21:12 → SDS 22:52
PROVIDERS: ATTEND Surgery
PROC: 0DC58ZZ Extirpation of Matter from Esophagus, Via Natural or Artificial Opening Endoscopic (ICD-10-PCS; 2019-03-15)
PROC: 0D748ZZ Dilation of Esophagogastric Junction, Via Natural or Artificial Opening Endoscopic (ICD-10-PCS; principal; 2019-03-15 17:00)
DX: T18.128A Food in esophagus causing other injury, initial encounter (principal); K22.2 Esophageal obstruction; I10 Essential (primary) hypertension; E11.9 Type 2 diabetes mellitus without complications; G40.909 Epilepsy, unspecified, not intractable, without status epilepticus; Z79.811 Long term (current) use of aromatase inhibitors; Z79.4 Long term (current) use of insulin
CPT/HCPCS: 36415; 43247; 43249; 71045; 80053; 81003; 83690; 85025; 96361; 96374; 99284; 99285; J2060; J7120; 81001; 87086

== ENCOUNTER 2019-06-19 10:56 | Outpatient (CLI) | payer MEDICARE, MEDICAID ==
[2019-06-19 18:28] LABS: BASOPHILS % (AUTO) 0.7 %; EOSINOPHILS # (AUTO) 0.3 10^3/uL (0.0-0.7); EOSINOPHILS % (AUTO) 6.3 %; HGB - HEMOGLOBIN 14.3 g/dL (14.0-18.0); LYMPHOCYTES # (AUTO) 1.8 10^3/uL (1.5-3.5); LYMPHOCYTES % (AUTO) 38.6 %; MEAN CORPUSCULAR HEMOGLOBIN 32.1 pg (27.0-31.0); MEAN CORPUSCULAR HGB CONC 32.9 g/dL (32.0-36.0); MEAN CORPUSCULAR VOLUME 97.5 fL (80.0-94.0); MEAN PLATELET VOLUME 10.5 fL (7.4-11.4); MONOCYTES # (AUTO) 0.3 10^3/uL (0.0-1.0); MONOCYTES % (AUTO) 5.7 %; NEUTROPHILS # (AUTO) 2.2 10^3/uL (1.5-6.6); NEUTROPHILS % (AUTO) 48.3 %; PLT - PLATELET COUNT 124 10^3/uL (130-450); RED BLOOD COUNT 4.45 10^6/uL (4.70-6.10); RED CELL DISTRIBUTION WIDTH 12.9 % (12.0-15.0); WHITE BLOOD COUNT 4.6 x10^3/uL (4.8-10.8)
[2019-06-19 18:53] LABS: HB2 TOTAL 14.6 g/dL; HEMOGLOBIN A1C 0.96 g/dL; HEMOGLOBIN A1C % 8.2 % (4.6-6.2)
[2019-06-19 19:12] LABS: ALBUMIN 4.1 g/dL (3.2-5.5); ALBUMIN/GLOBULIN RATIO 1.5 (1.0-2.2); ALKALINE PHOSPHATASE 53 IU/L (42-121); ALT ALANINE AMINOTRANSFERASE 108 IU/L (10-60); AST ASPARTATE AMINOTRANSFERASE 47 IU/L (10-42); BILIRUBIN,TOTAL 0.4 mg/dL (0.2-1.0); BUN - BLOOD UREA NITROGEN 13 mg/dL (6-20); CALCIUM 10.3 mg/dL (8.5-10.3); CARBON DIOXIDE - CO2 20 mmol/L (21-32); CHLORIDE 102 mmol/L (101-111); CHOL/HDL RATIO 6.3 (<5.0); CHOLESTEROL 203 mg/dL; CREATININE 0.5 mg/dL (0.6-1.2); GFR - MDRD 171 (>89); GLUCOSE 290 mg/dL (70-100); HDL CHOLESTEROL 32 mg/dL; LDL CHOLESTEROL,CALCULATED 99 mg/dL; LDL/HDL RATIO 3.1 (<3.6); SODIUM 132 mmol/L (135-145); TOTAL PROTEIN 6.9 g/dL (6.7-8.2); VLDL CHOLESTEROL 72 mg/dL
== END 2019-06-19 23:59 | disposition home or self-care (01) ==
LOC: LAB.N 10:56
PROVIDERS: ATTEND Family Medicine
DX: E10.9 Type 1 diabetes mellitus without complications (principal); E78.5 Hyperlipidemia, unspecified; I10 Essential (primary) hypertension
CPT/HCPCS: 36415; 80053; 80061; 83036; 83721; 84443; 85025

== ENCOUNTER 2020-01-02 15:25 | Outpatient (CLI) | payer MEDICARE, MEDICAID ==
[2020-01-02 18:57] LABS: CALCIUM 10.2 mg/dL (8.5-10.3); CREATININE 0.4 mg/dL (0.6-1.2)
[2020-01-02 19:12] LABS: CREATININE,URINE 183.9 mg/dL; MICROALBUM/CREATININE RATIO,UR 52.7 ug/mg (<30.0); MICROALBUMIN,URINE 9.7 mg/dL (0-300.0)
== END 2020-01-02 23:59 | disposition home or self-care (01) ==
LOC: LAB.WCP 15:25
PROVIDERS: ATTEND Family Medicine
DX: E11.9 Type 2 diabetes mellitus without complications (principal)
CPT/HCPCS: 36415; 80048; 82043; 82570; 83036

== ENCOUNTER 2020-02-23 14:05 | Outpatient (CLI) | payer MEDICARE, MEDICAID | END 2020-02-23 14:06 | disposition short-term general hospital (02) | LOC: EMS 14:05 | PROVIDERS: ATTEND Surgery | DX: R07.9 Chest pain, unspecified (principal); R06.02 Shortness of breath; R42 Dizziness and giddiness | CPT/HCPCS: A0425; A0427 ==

== ENCOUNTER 2020-11-28 08:00 | Outpatient (CLI) | payer MEDICARE, MEDICAID ==
[2020-11-28 18:28] LABS: BASOPHILS % (AUTO) 0.2 %; EOSINOPHILS # (AUTO) 0.2 10^3/uL (0.0-0.7); EOSINOPHILS % (AUTO) 4.4 %; HCT - HEMATOCRIT 39.2 % (42.0-52.0); HGB - HEMOGLOBIN 13.3 g/dL (14.0-18.0); LYMPHOCYTES # (AUTO) 1.1 10^3/uL (1.5-3.5); MEAN CORPUSCULAR HEMOGLOBIN 34.3 pg (27.0-31.0); MEAN CORPUSCULAR HGB CONC 33.9 g/dL (32.0-36.0); MEAN PLATELET VOLUME 10.2 fL (7.4-11.4); MONOCYTES # (AUTO) 0.4 10^3/uL (0.0-1.0); MONOCYTES % (AUTO) 6.7 %; NEUTROPHILS # (AUTO) 3.5 10^3/uL (1.5-6.6); NEUTROPHILS % (AUTO) 67.5 %; PLT - PLATELET COUNT 157 10^3/uL (130-450); RED BLOOD COUNT 3.88 10^6/uL (4.70-6.10); RED CELL DISTRIBUTION WIDTH 11.7 % (12.0-15.0); WHITE BLOOD COUNT 5.2 x10^3/uL (4.8-10.8)
[2020-11-28 18:37] LABS: % IRON SATURATION 30 % (20-50); ALBUMIN 3.9 g/dL (3.2-5.5); ALBUMIN/GLOBULIN RATIO 1.4 (1.0-2.2); ALKALINE PHOSPHATASE 60 IU/L (42-121); ALT ALANINE AMINOTRANSFERASE 25 IU/L (10-60); AST ASPARTATE AMINOTRANSFERASE 21 IU/L (10-42); BILIRUBIN,TOTAL 0.7 mg/dL (0.2-1.0); BUN - BLOOD UREA NITROGEN 7 mg/dL (6-20); CALCIUM 8.9 mg/dL (8.5-10.3); CARBAMAZEPINE (TEGRETOL) 6.4 ug/mL; CARBON DIOXIDE - CO2 24 mmol/L (21-32); CHLORIDE 102 mmol/L (101-111); CHOL/HDL RATIO 6.1 (<5.0); CHOLESTEROL 232 mg/dL; CREATININE 0.4 mg/dL (0.6-1.2); GFR - MDRD 220 (>89); GLUCOSE 206 mg/dL (70-100); HDL CHOLESTEROL 38 mg/dL; IRON 114 ug/dL (45-182); LDL CHOLESTEROL,CALCULATED 167 mg/dL; LDL/HDL RATIO 4.4 (<3.6); POTASSIUM 3.3 mmol/L (3.5-5.0); SODIUM 137 mmol/L (135-145); TOTAL IRON BINDING CAPACITY 374 ug/dL (250-450); TOTAL PROTEIN 6.7 g/dL (6.7-8.2); TRANSFERRIN 267 mg/dL (180-329); TRIGLYCERIDES 133 mg/dL; VLDL CHOLESTEROL 27 mg/dL
[2020-11-28 18:46] LABS: CRP - C-REACTIVE PROTEIN < 1.0 mg/dL (0-1.0)
[2020-11-28 18:48] LABS: THYROID STIMULATING HORMONE 0.87 uIU/mL (0.34-5.60)
[2020-11-28 18:54] LABS: FERRITIN 18.3 ng/mL (23.9-336.2)
[2020-11-28 19:19] LABS: CREATININE,URINE 78.5 mg/dL; MICROALBUM/CREATININE RATIO,UR 57.3 ug/mg (<30.0); MICROALBUMIN,URINE 4.5 mg/dL (0-300.0)
[2020-11-28 20:39] LABS: ESTIMATED AVERAGE GLUCOSE 220 mg/dL (70-100); HEMOGLOBIN A1c% 9.3 % (4.27-6.07)
[2020-11-29 11:32] LABS: HEPATITIS C ANTIBODY NON-REACTIVE (NON-REACTIVE)
[2020-11-29 11:36] LABS: HEPATITIS B SURFACE ANTIGEN NON-REACTIVE (NON-REACTIVE)
== END 2020-11-28 23:59 | disposition home or self-care (01) ==
LOC: LAB.WCP 08:00
PROVIDERS: ATTEND Internal Medicine
DX: R74.8 Abnormal levels of other serum enzymes (principal); E78.5 Hyperlipidemia, unspecified; Z86.69 Personal history of other diseases of the nervous system and sense organs; E11.9 Type 2 diabetes mellitus without complications; Z12.5 Encounter for screening for malignant neoplasm of prostate; Z86.79 Personal history of other diseases of the circulatory system; M54.5 Low back pain; G89.29 Other chronic pain
CPT/HCPCS: 36415; 80053; 80061; 80156; 82043; 82570; 82728; 83036; 83540; 84443; 84466; 85025; 85651; 86140; 86704; 86803; 86812; 87340; G0103; 83721; 84153

== ENCOUNTER 2020-12-16 17:59 | Outpatient (CLI) | payer MEDICARE, MEDICAID | END 2020-12-16 18:00 | disposition short-term general hospital (02) | LOC: EMS 17:59 | DX: R10.13 Epigastric pain (principal); R19.7 Diarrhea, unspecified | CPT/HCPCS: A0425; A0429 ==

== ENCOUNTER 2020-12-16 18:18 | Emergency (ER) | payer MEDICARE, MEDICAID ==
[2020-12-16 18:46] LABS: BASOPHILS % (AUTO) 0.5 %; EOSINOPHILS # (AUTO) 0.1 10^3/uL (0.0-0.7); EOSINOPHILS % (AUTO) 2.4 %; HCT - HEMATOCRIT 44.4 % (42.0-52.0); LYMPHOCYTES # (AUTO) 1.5 10^3/uL (1.5-3.5); LYMPHOCYTES % (AUTO) 25.4 %; MEAN CORPUSCULAR HEMOGLOBIN 32.9 pg (27.0-31.0); MEAN CORPUSCULAR HGB CONC 33.8 g/dL (32.0-36.0); MEAN CORPUSCULAR VOLUME 97.4 fL (80.0-94.0); MEAN PLATELET VOLUME 9.1 fL (7.4-11.4); MONOCYTES # (AUTO) 0.3 10^3/uL (0.0-1.0); MONOCYTES % (AUTO) 5.7 %; NEUTROPHILS # (AUTO) 3.8 10^3/uL (1.5-6.6); NEUTROPHILS % (AUTO) 65.7 %; PLT - PLATELET COUNT 168 10^3/uL (130-450); RED BLOOD COUNT 4.56 10^6/uL (4.70-6.10); RED CELL DISTRIBUTION WIDTH 11.9 % (12.0-15.0); WHITE BLOOD COUNT 5.8 x10^3/uL (4.8-10.8)
[2020-12-16] MEDS: NITROGLYCERIN SL 0.4 MG TABLET SL STA ×2 (18:55→18:56)
[2020-12-16 18:56] LABS: BILIRUBIN,URINE NEGATIVE (NEGATIVE); GLUCOSE, URINE (UA) >=1000 mg/dL (NEGATIVE); KETONES,URINE (UA) 15 mg/dL (NEGATIVE); LEUKOCYTE ESTERASE, URINE NEGATIVE (NEGATIVE); NITRITE,URINE NEGATIVE (NEGATIVE); OCCULT BLOOD,URINE TRACE-INTA (NEGATIVE); PROTEIN,URINE TRACE mg/dL (NEGATIVE); UROBILINOGEN,URINE 0.2 (NORMAL) E.U./dL (NORMAL)
[2020-12-16 18:58] LABS: ALBUMIN 4.1 g/dL (3.2-5.5); ALBUMIN/GLOBULIN RATIO 1.5 (1.0-2.2); BILIRUBIN,TOTAL 0.9 mg/dL (0.2-1.0); CALCIUM 10.1 mg/dL (8.5-10.3); CREATININE 0.4 mg/dL (0.6-1.2); POTASSIUM 3.6 mmol/L (3.5-5.0); TOTAL PROTEIN 6.9 g/dL (6.7-8.2)
[2020-12-16 18:59] LABS: CLARITY,URINE CLEAR (CLEAR)
--- NOTE | 2020-12-16 19:07 | ED Physician Documentation ---
PD HPI CHEST PAIN - Stated complaint Stated Complaint: EPIGASTRIC PAIN - Chief complaint Chief Complaint: Cardiac - History obtained from History obtained from: Patient - History of Present Illness Timing - onset: Yesterday Timing - onset during: Rest Timing - duration: Hours (24) Timing - details: Abrupt onset Pain level max: 8 Pain level now: 8 Quality: Aching, Pain Location: Substernal Radiation: No: Jaw, Neck, Back, Abdominal, Left upper extremity, Right upper extremity Improved by: Nothing Worsened by: Other (nothing) Associated symptoms: Palpitations. No: Shortness of air, Diaphoresis, Nausea, Vomiting, Feeling faint / dizzy, General Weakness Similar symptoms before: Diagnosis (states was told he has a-fib) Recently seen: Admitted [facility] Review of Systems Constitutional: denies: Fever, Chills GI: denies: Vomiting, Diarrhea Skin: denies: Rash Musculoskeletal: denies: Neck pain, Back pain Neurologic: denies: Headache PD PAST MEDICAL HISTORY - Past Medical History Cardiovascular: Hypertension, High cholesterol Respiratory: None Neuro: Head injury, Headaches, Seizure disorder, Other Endocrine/Autoimmune: Type 2 diabetes GI: None 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 HEENT: Chronic sinusitis Psych: Depression, Anxiety, Obsessive compulsive disorder Musculoskeletal: Chronic back pain, Other Derm: None - Past Surgical History Past Surgical History: Yes Ortho: Carpal Tunnel surgery - Present Medications Home Medications: Ambulatory Orders Medication Instructions Recorded Confirmed Insulin Glargine [Lantus] 50 unit SUBQ 1700 08/09/12 12/16/20 Metformin HCl [Metformin ER 1,000 mg PO BIDWM 08/09/12 12/16/20 Osmotic] Atorvastatin Calcium 40 mg PO QPM 10/22/17 10/22/17 Fenofibrate 160 mg PO DAILY 10/22/17 12/16/20 Folic Acid 1 mg PO DAILY 10/22/17 12/16/20 carBAMazepine [Carbamazepine ER] 800 mg PO BID 10/22/17 12/16/20 lisinopriL [Lisinopril] 10 mg PO DAILY 10/22/17 12/16/20 Bacitracin/Polymyxin Ophth Oin 1 applic RIGHTEYE QID #1 tube 10/25/17 [Polysporin Ophth Oint] Verapamil HCl [Verelan] 1 tab PO DAILY 09/13/21 09/13/21 - Allergies Allergies/Adverse Reactions: Allergies Allergy/AdvReac Type Severity Reaction Status Date / Time codeine AdvReac Intermediate Emesis Verified 12/16/20 18:30 Penicillins AdvReac Unknown Verified 12/16/20 18:30 - Social History Does the pt smoke?: No Smoking Status: Never smoker Does the pt drink ETOH?: No Does the pt have substance abuse?: No - Immunizations Immunizations are current?: Yes - POLST Patient has POLST: No POLST Status: Full Code PD ED PE NORMAL - Vitals Vital signs reviewed: Yes - General General: Alert and oriented X 3, No acute distress - HEENT HEENT: Moist mucous membranes - Neck Neck: Supple, no meningeal sign - Cardiac Cardiac: Other (irregular, tachycardic) - Respiratory Respiratory: No respiratory distress, Clear bilaterally - Abdomen Abdomen: Soft, Non tender, Non distended - Back Back: No spinal TTP - Derm Derm: Warm and dry - Extremities Extremities: No edema, No calf tenderness / cord - Neuro Neuro: Alert and oriented X 3 Results - Vitals Vitals: Oxygen O2 Source Room air - EKG (time done) 1913 Rate: Rate (enter#) (117) Rhythm: Atrial fibrillation [place]: LAD (borderline) QRS: Normal Ischemia: Normal ST segments 2145 Rate: Rate (enter#) (95) Rhythm: NSR [place]: Normal Intervals: Prolonged SD QRS: Normal Ischemia: Normal ST segments - Labs Labs: Laboratory Tests 12/16/20 12/16/20 12/16/20 18:37 18:37 18:37 WBC 5.8 RBC 4.56 L Hgb 15.0 Hct 44.4 MCV 97.4 H MCH 32.9 H MCHC 33.8 RDW 11.9 L Plt Count 168 MPV 9.1 Neut # (Auto) 3.8 Lymph # (Auto) 1.5 [place] # (Auto) 0.3 Eos # (Auto) 0.1 Baso # (Auto) 0.0 Absolute Nucleated RBC 0.00 Nucleated RBC % 0.0 Sodium 134 L Potassium 3.6 Chloride 99 L Carbon Dioxide 25 Anion Gap 10.0 BUN 7 Creatinine 0.4 L Estimated GFR (MDRD) 220 Glucose 270 H Calcium 10.1 Total Bilirubin 0.9 AST 17 ALT 16 Alkaline Phosphatase 58 Troponin I High Sens 17.6 Total Protein 6.9 Albumin 4.1 Globulin 2.8 Albumin/Globulin Ratio 1.5 Lipase 52 H Urine Color Urine Clarity Urine pH Ur Specific [place] Urine Protein Urine Glucose (UA) Urine Ketones Urine Occult Blood Urine Nitrite Urine Bilirubin Urine Urobilinogen Ur Leukocyte Esterase Ur Microscopic Review Urine Culture Comments 12/16/20 18:46 WBC RBC Hgb Hct MCV MCH MCHC RDW Plt Count MPV Neut # (Auto) Lymph # (Auto) [place] # (Auto) Eos # (Auto) Baso # (Auto) Absolute Nucleated RBC Nucleated RBC % Sodium Potassium Chloride Carbon Dioxide Anion Gap BUN Creatinine Estimated GFR (MDRD) Glucose Calcium Total Bilirubin AST ALT Alkaline Phosphatase Troponin I High Sens Total Protein Albumin Globulin Albumin/Globulin Ratio Lipase Urine Color YELLOW Urine Clarity CLEAR Urine pH 6.0 Ur Specific [place] 1.020 Urine Protein TRACE Urine Glucose (UA) >=1000 H Urine Ketones 15 H Urine Occult Blood TRACE-INTA Urine Nitrite NEGATIVE Urine Bilirubin NEGATIVE Urine Urobilinogen 0.2 (NORMAL) Ur Leukocyte Esterase NEGATIVE Ur Microscopic Review NOT INDICATED Urine Culture Comments NOT INDICATED - Rads (name of study) cxr Radiology: Final report received, EMP read contemporaneously, See rad report (no acute findings) PD MEDICAL DECISION MAKING - ED course Complexity details: reviewed results, re-evaluated patient, considered differential (No ST elevation [place], no aortic dissection, no PE, no tension pneumothorax, no aortic aneurysm), d/w patient ED course: Patient with afib/RVR. states he feels this way when he goes into afib. converted with procainamide in the ED symptoms resolved. Patient is currently asymptomatic. Feels much better. Records were reviewed from [facility]. He had been on Eliquis, unclear why this was stopped. We will have him follow-up with his doctor for this conversation. Patient counseled regardin g signs and symptoms for which I believe and urgent re-evaluation would be necessary. Patient with good understanding of and agreement to plan and is comfortable going home at this time This document was made in part using voice recognition software. While efforts are made to proofread this document, sound alike and grammatical errors may occur. Departure - Departure Disposition: 01 Home, Self Care Clinical Impression: Atrial fibrillation Qualifiers: Atrial fibrillation type: paroxysmal Qualified Code(s): I48.0 - Paroxysmal atrial fibrillation Condition: Good Instructions: ED Afib Follow-Up: your,doctor in 1 week [Other] Comments: Please follow-up with your doctor for further care. You were in atrial fibrillation today. You should have a Holter monitor to determine how often you are in atrial fibrillation and if you should be continued on the Eliquis that [facility] placed you on. Please return if you worsen. Discharge Date/Time: 12/16/20 22:05
[2020-12-16] MEDS ORDERED: diltiaZEM INJ 5 MG/ML VIAL IVP STA (19:20)
[2020-12-16] MEDS ORDERED: PROCAINAMIDE 1,000 MG in SODIUM CHLORIDE 0.9% 240 ML IV STA (20:11)
--- NOTE | 2020-12-16 20:18 | XRAY Report ---
PROCEDURE: Chest 1 View X-Ray INDICATIONS: Chest pain TECHNIQUE: One view of the chest was acquired. COMPARISON: 03/15/2019 FINDINGS: Surgical changes and devices: None. Lungs and pleura: No pleural effusions or pneumothorax. Lungs are clear. Mediastinum: Mediastinal contours appear normal. Heart size is normal. Bones and chest wall: No suspicious bony lesions. Overlying soft tissues appear unremarkable. IMPRESSION: No acute cardiopulmonary process demonstrated radiographically. Reviewed by: Tobias Ruiz MD on 12/16/2020 8:16 PM PDT Approved by: Tobias Ruiz MD on 12/16/2020 8:16 PM PDT Station ID: [id number]
[2020-12-16] MEDS ORDERED: PROCAINAMIDE 1,000 MG/10 ML SYRINGE ONE (20:21)
[2020-12-16] MEDS ORDERED: BUTALB/ACETAM/CAFF 50/325/40MG TABLET PO STA ×2 (20:22→21:45)
[2020-12-16 20:35] VITALS: BP 163/94
== END 2020-12-16 22:05 | disposition home or self-care (01) ==
LOC: EDUNIT# → ED 18:18
DX: I48.0 Paroxysmal atrial fibrillation (principal)
CPT/HCPCS: 36415; 71045; 80053; 81003; 83690; 84484; 85025; 93005; 96365; 96375; 99284; 99285; A9270; J2690; 81001; 87086

== ENCOUNTER 2021-09-19 13:10 | Outpatient (CLI) | payer MEDICARE, MEDICAID ==
[2021-09-19 17:34] LABS: BASOPHILS % (AUTO) 0.3 %; EOSINOPHILS # (AUTO) 0.4 10^3/uL (0.0-0.7); HCT - HEMATOCRIT 45.5 % (42.0-52.0); HGB - HEMOGLOBIN 15.7 g/dL (14.0-18.0); MEAN CORPUSCULAR HEMOGLOBIN 33.7 pg (27.0-31.0); MEAN CORPUSCULAR HGB CONC 34.5 g/dL (32.0-36.0); MEAN CORPUSCULAR VOLUME 97.6 fL (80.0-94.0); MEAN PLATELET VOLUME 9.5 fL (7.4-11.4); MONOCYTES # (AUTO) 0.5 10^3/uL (0.0-1.0); NEUTROPHILS # (AUTO) 4.3 10^3/uL (1.5-6.6); NEUTROPHILS % (AUTO) 59.3 %; PLT - PLATELET COUNT 210 10^3/uL (130-450); RED BLOOD COUNT 4.66 10^6/uL (4.70-6.10); RED CELL DISTRIBUTION WIDTH 12.5 % (12.0-15.0); WHITE BLOOD COUNT 7.3 x10^3/uL (4.8-10.8)
[2021-09-19 18:53] LABS: ALBUMIN 4.4 g/dL (3.2-5.5); ALBUMIN/GLOBULIN RATIO 1.5 (1.0-2.2); ALKALINE PHOSPHATASE 57 IU/L (42-121); ALT ALANINE AMINOTRANSFERASE 15 IU/L (10-60); AST ASPARTATE AMINOTRANSFERASE 13 IU/L (10-42); BILIRUBIN,TOTAL 0.4 mg/dL (0.2-1.0); BUN - BLOOD UREA NITROGEN 7 mg/dL (6-20); CALCIUM 10.5 mg/dL (8.5-10.3); CARBON DIOXIDE - CO2 25 mmol/L (21-32); CHLORIDE 97 mmol/L (101-111); CHOL/HDL RATIO 8.3 (<5.0); CHOLESTEROL 267 mg/dL; CREATININE 0.5 mg/dL (0.6-1.2); GFR - MDRD 170 (>89); GLUCOSE 392 mg/dL (70-100); HDL CHOLESTEROL 32 mg/dL; SODIUM 131 mmol/L (135-145); TOTAL PROTEIN 7.4 g/dL (6.7-8.2); TRIGLYCERIDES 408 mg/dL
[2021-09-19 19:14] LABS: CREATININE,URINE 39.9 mg/dL; MICROALBUM/CREATININE RATIO,UR 17.5 ug/mg (<30.0); MICROALBUMIN,URINE 0.7 mg/dL (0-300.0)
[2021-09-19 19:21] LABS: THYROID STIMULATING HORMONE 1.27 uIU/mL (0.34-5.60)
[2021-09-19 19:29] LABS: LDL CHOLESTEROL,DIRECT 181 mg/dL; LDLD/HDL RATIO 5.7 (<3.6)
[2021-09-19 22:24] LABS: ESTIMATED AVERAGE GLUCOSE 329 mg/dL (70-100); HEMOGLOBIN A1c% 13.1 % (4.27-6.07)
== END 2021-09-19 13:11 | disposition home or self-care (01) ==
LOC: LAB.N 13:10
PROVIDERS: ATTEND Internal Medicine
DX: E78.5 Hyperlipidemia, unspecified (principal); I42.9 Cardiomyopathy, unspecified; E11.9 Type 2 diabetes mellitus without complications; Z12.5 Encounter for screening for malignant neoplasm of prostate; I48.0 Paroxysmal atrial fibrillation
CPT/HCPCS: 36415; 80053; 80061; 82043; 82570; 83036; 83721; 84443; 85025; G0103; 84153

== ENCOUNTER 2021-10-17 10:09 | Inpatient (IN) | payer MEDICARE, MEDICAID ==
--- NOTE | 2021-10-17 10:20 | ED Physician Documentation ---
PD HPI ALTERED MENTAL STATUS - Stated complaint Stated Complaint: AMS/FALL - Chief complaint Chief Complaint: Neuro - History obtained from History obtained from: Patient, Friend, EMS (Medics report the patient was disoriented and thrashing about but not purposely combative. They noted diabetic insulin and syringes in boxes at the house and seemed largely unused.) - History of Present Illness Timing - onset: Today Timing - duration: Hours (The patient lives with his brother who called EMS this morning noted the patient being altered mentation and thrashing about. He was seeming normal yesterday. His brother did not notice him tossing about earlier this morning but was now confused and poorly responsive.) Timing - details: Abrupt onset, Still present Quality / character: Less responsive, Confused, Agitated Associated symptoms: Other (Unknown if any fall or injury. The patient's brother states the patient did not have any specific symptoms or complaints the last few days. Patient is unable to express any symptoms himself right now.). No: Fever Contributing factors: Diabetic, Other (unknown if recent injury nor illness.). 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 HEENT: Chronic sinusitis Psych: Depression, Anxiety, Obsessive compulsive disorder Musculoskeletal: Chronic back pain, Other Derm: None - Past Surgical History Past Surgical History: Yes Ortho: Carpal Tunnel surgery - Present Medications Home Medications: Ambulatory Orders Medication Instructions Recorded Confirmed Insulin Glargine [Lantus] 50 unit SUBQ 1700 08/09/12 12/16/20 Metformin HCl [Metformin ER 1,000 mg PO BIDWM 08/09/12 12/16/20 Osmotic] Atorvastatin Calcium 40 mg PO QPM 10/22/17 10/22/17 Fenofibrate 160 mg PO DAILY 10/22/17 12/16/20 Folic Acid 1 mg PO DAILY 10/22/17 12/16/20 carBAMazepine [Carbamazepine ER] 800 mg PO BID 10/22/17 12/16/20 lisinopriL [Lisinopril] 10 mg PO DAILY 10/22/17 12/16/20 Bacitracin/Polymyxin Ophth Oin 1 applic RIGHTMARLIE QID #1 tube 10/25/17 [Polysporin Ophth Oint] Verapamil HCl [Verelan] 1 tab PO DAILY 12/16/20 12/16/20 - Allergies Allergies/Adverse Reactions: Allergies Allergy/AdvReac Type Severity Reaction Status Date / Time codeine AdvReac Intermediate Emesis Verified 12/16/20 18:30 Penicillins AdvReac Unknown Verified 12/16/20 18:30 - Social History Does the pt smoke?: No Smoking Status: Never smoker Does the pt drink ETOH?: No Does the pt have substance abuse?: No - Immunizations Immunizations are current?: Yes - POLST Patient has POLST: No POLST Status: Full Code PD ED PE NORMAL - Vitals Vital signs reviewed: Yes (hypertensive, tachycardic) - General General: Well developed/nourished, Other (he opens eyes to loud verbal and tacti le but does not seem to focus attention. He is restless and moving arms and legs around, making care and IV access concerning. Agitated but not hyperkinetic per se. ) - HEENT HEENT: Atraumatic, PERRL (mid sized and reactive), EOMI, Pharynx benign (no injury to tongue nor lips.). No: Moist mucous membranes - Neck Neck: Supple, no meningeal sign (he is moving head and neck around spontaneously. ), No bony TTP, No adenopathy - Cardiac Cardiac: No: RRR (regular and very fast.) - Respiratory Respiratory: No respiratory distress, Clear bilaterally - Abdomen Abdomen: Soft, Non distended, Other (liver feels perhaps enlarged to palpation. Dullness to percussion of abdomen. ). No: Normal bowel sounds (diminished) Results - Vitals Vitals: Vital Signs - 24 hr 10/17/21 10/17/21 10/17/21 10:10 11:14 11:20 Temperature 38.9 C H Heart Rate 171 H 168 H 169 H Respiratory 22 Rate Blood Pressure 235/116 H O2 Saturation 95 95 95 10/17/21 10/17/21 10/17/21 11:34 12:00 12:30 Temperature Heart Rate 154 H 168 H 157 H Respiratory 30 H Rate Blood Pressure 177/69 H 152/74 H O2 Saturation 89 L 94 96 10/17/21 10/17/21 10/17/21 13:00 13:30 13:55 Temperature 39.4 C H Heart Rate 166 H 161 H Respiratory 28 H 38 H Rate Blood Pressure 180/99 H 133/103 H O2 Saturation 95 92 10/17/21 10/17/21 10/17/21 14:26 14:30 15:00 Temperature Heart Rate 152 H 159 H 160 H Respiratory 40 H 33 H 41 H Rate Blood Pressure 143/109 H 151/99 H 145/108 H O2 Saturation 92 92 93 Oxygen O2 Source Room air - Labs Labs: Laboratory Tests 10/17/21 10/17/21 10/17/21 10:20 10:25 11:10 WBC RBC Hgb Hct MCV MCH MCHC RDW Plt Count MPV Neut # (Auto) Lymph # (Auto) [place] # (Auto) Eos # (Auto) Baso # (Auto) Absolute Nucleated RBC Nucleated RBC % VBG pH VBG pCO2 VBG pO2 VBG HCO3 VBG Total CO2 VBG O2 Saturation VBG Base Excess Sodium 136 Potassium 5.7 H Chloride 90 L Carbon Dioxide 23 Anion Gap 23.0 H BUN 33 H Creatinine 1.0 Estimated GFR (MDRD) 76 L Glucose 1178 H* Calcium 14.0 H* Magnesium 2.1 Total Bilirubin 1.1 H AST 49 H ALT 38 Alkaline Phosphatase 75 Ammonia Total Protein 8.8 H Albumin 5.0 Globulin 3.8 Albumin/Globulin Ratio 1.3 Lipase 51 Urine Color Urine Clarity Urine pH Ur Specific [place] Urine Protein Urine Glucose (UA) Urine Ketones Urine Occult Blood Urine Nitrite Urine Bilirubin Urine Urobilinogen Ur Leukocyte Esterase Urine RBC Urine WBC Ur Squamous Epith Cells Urine Bacteria Ur Microscopic Review Urine Culture Comments Last Dose Date UNKNOWN Last Dose Time UNKNOWN Salicylates < 6.0 Urine Opiates Screen Ur Oxycodone Screen Urine Methadone Screen Ur Propoxyphene Screen Acetaminophen < 10 L Ur Barbiturates Screen Carbamazepine < 2.0 Ur Tricyclics Screen Ur Phencyclidine Scrn Ur Amphetamine Screen U Methamphetamines Scrn U Benzodiazepines Scrn Urine Cocaine Screen U Cannabinoids Screen Ethyl Alcohol < 5.0 Serum Ketones SMALL H SARS-CoV-2 (PCR) NOT DETECTED 10/17/21 10/17/21 10/17/21 11:10 11:10 11:10 WBC 16.0 H RBC 4.98 Hgb 17.2 Hct 49.0 MCV 98.4 H MCH 34.5 H MCHC 35.1 RDW 12.7 Plt Count 310 MPV 10.0 Neut # (Auto) 13.2 H Lymph # (Auto) 1.7 [place] # (Auto) 0.9 Eos # (Auto) 0.1 Baso # (Auto) 0.0 Absolute Nucleated RBC 0.00 Nucleated RBC % 0.0 VBG pH 7.522 H VBG pCO2 30.7 L VBG pO2 57.8 H VBG HCO3 24.6 VBG Total CO2 25.6 VBG O2 Saturation 92.7 H VBG Base Excess 2.9 H Sodium Potassium Chloride Carbon Dioxide Anion Gap BUN Creatinine Estimated GFR (MDRD) Glucose Calcium Magnesium Total Bilirubin AST ALT Alkaline Phosphatase Ammonia 34.2 Total Protein Albumin Globulin Albumin/Globulin Ratio Lipase Urine Color Urine Clarity Urine pH Ur Specific [place] Urine Protein Urine Glucose (UA) Urine Ketones Urine Occult Blood Urine Nitrite Urine Bilirubin Urine Urobilinogen Ur Leukocyte Esterase Urine RBC Urine WBC Ur Squamous Epith Cells Urine Bacteria Ur Microscopic Review Urine Culture Comments Last Dose Date Last Dose Time Salicylates Urine Opiates Screen Ur Oxycodone Screen Urine Methadone Screen Ur Propoxyphene Screen Acetaminophen Ur Barbiturates Screen Carbamazepine Ur Tricyclics Screen Ur Phencyclidine Scrn Ur Amphetamine Screen U Methamphetamines Scrn U Benzodiazepines Scrn Urine Cocaine Screen U Cannabinoids Screen Ethyl Alcohol Serum Ketones SARS-CoV-2 (PCR) 10/17/21 10/17/21 13:40 14:31 WBC RBC Hgb Hct MCV MCH MCHC RDW Plt Count MPV Neut # (Auto) Lymph # (Auto) [place] # (Auto) Eos # (Auto) Baso # (Auto) Absolute Nucleated RBC Nucleated RBC % VBG pH VBG pCO2 VBG pO2 VBG HCO3 VBG Total CO2 VBG O2 Saturation VBG Base Excess Sodium 147 H Potassium 4.2 Chloride 103 Carbon Dioxide 24 Anion Gap 20.0 H BUN 34 H Creatinine 1.0 Estimated GFR (MDRD) 76 L Glucose 856 H* Calcium 13.5 H* Magnesium Total Bilirubin AST ALT Alkaline Phosphatase Ammonia Total Protein Albumin Globulin Albumin/Globulin Ratio Lipase Urine Color YELLOW Urine Clarity CLEAR Urine pH 5.0 Ur Specific [place] <=1.005 Urine Protein TRACE Urine Glucose (UA) >=1000 H Urine Ketones TRACE Urine Occult Blood SMALL H Urine Nitrite NEGATIVE Urine Bilirubin NEGATIVE Urine Urobilinogen 0.2 (NORMAL) Ur Leukocyte Esterase NEGATIVE Urine RBC None Seen Urine WBC 0-3 Ur Squamous Epith Cells RARE Squamous Urine Bacteria Rare Ur Microscopic Review INDICATED Urine Culture Comments NOT INDICATED Last Dose Date Last Dose Time Salicylates Urine Opiates Screen NEGATIVE Ur Oxycodone Screen NEGATIVE Urine Methadone Screen NEGATIVE Ur Propoxyphene Screen NEGATIVE Acetaminophen Ur Barbiturates Screen NEGATIVE Carbamazepine Ur Tricyclics Screen NEGATIVE Ur Phencyclidine Scrn NEGATIVE Ur Amphetamine Screen NEGATIVE U Methamphetamines Scrn NEGATIVE U Benzodiazepines Scrn POSITIVE H Urine Cocaine Screen NEGATIVE U Cannabinoids Screen NEGATIVE Ethyl Alcohol Serum Ketones SARS-CoV-2 (PCR) - Rads (name of study) chest xray Radiology: Prelim report reviewed (diffuse interstitial prominence. Consider edema or atypical infiltrate. ), See rad report head CT Radiology: Prelim report reviewed (atrophy and chronic ischemic changes. No acute bleed nor injury. ), See rad report cervical spine CT Radiology: Prelim report reviewed (no fractures), See rad report chest CT Radiology: Prelim report reviewed, See rad report (no evidnec of acute injury.) PD MEDICAL DECISION MAKING - ED course Complexity details: reviewed old records, reviewed results (sodium level normal but gludose quite elevated so corrected sodium would be about 162, reflecting large fluid deficit. Started insulin after initial labs. K after it was improved. ), re-evaluated patient (calmer with IV meds and fluids. Able to stop moving uncontrolled. Adequate respirations. He seems stable with the rapid atrial fib and may be appropriate due to ilness. Chronic atrial fib so did not attempt cardioversion but gave Diltiazem bolus/drip and metoprolol. insluin drip after lytes result. ), considered differential, d/w patient ED course: is not acidotic and only mild ketotic. Presume HONK with the altered mentatl status, high sugar and lytes abnormal. Unclear if taking usual diabetes meds. Given fever and elevated WBCs, would be concerned for spesis as trigger. No obvious source initially so went with broad antibiotics. Unknown if fall/injury, so got CT head/neck/chest. - Critical Care Time(min): 60 Comments: hyperglycemia with HONK, rapid atrial fib, hypertension, altered mental status. Critical fluid and electrolyte balance. Time Includes: Direct patient care, Reassess patient, Coordinate care, Medical consult Data interpretation: Labs, Pulse ox, ABG, CXR Procedures excluded from critical care time: EKG Departure - Departure Disposition: 66 [facility] DC/Xfer Clinical Impression: Rapid atrial fibrillation, Hyperosmolar hyperglycemic state (HHS) Altered mental status Qualifiers: Altered mental status type: delirium Qualified Code(s): R41.0 - Disorientation, unspecified Sepsis Qualifiers: Sepsis type: sepsis due to unspecified organism Sepsis acute organ dysfunction status: unspecified Qualified Code(s): A41.9 - Sepsis, unspecified organism Condition: Stable Record reviewed to determine appropriate education?: Yes Discharge Date/Time: 10/17/21 15:35
[2021-10-17] MEDS ORDERED: diazePAM INJ 5 MG/ML SYRINGE IVP STA ×2 (10:21→10:56)
[2021-10-17] MEDS ORDERED: diltiaZEM INJ 5 MG/ML VIAL IVP STA ×3 (10:23→12:02)
[2021-10-17] MEDS ORDERED: SODIUM CHLORIDE 0.9% 1,000 ML IV STA ×2 (10:24→12:08)
--- NOTE | 2021-10-17 10:49 | XRAY Report ---
PROCEDURE: Chest 1 View X-Ray INDICATIONS: altered mental status TECHNIQUE: One view of the chest was acquired. COMPARISON: 12/16/2020 FINDINGS: Surgical changes and devices: None. Lungs and pleura: No pleural effusions or pneumothorax. Diffuse interstitial prominence. No focal co nsolidation. Mediastinum: Mediastinal contours appear normal. Heart size is normal. Bones and chest wall: No suspicious bony lesions. Overlying soft tissues appear unremarkable. IMPRESSION: Diffuse interstitial prominence without focal consolidation. No substantial pleural effusion. Finding s are nonspecific and may represent an infectious/inflammatory process although pulmonary edema may h ave a similar appearance if clinically appropriate. Reviewed by: Edwin Parmar MD on 10/17/2021 10:47 AM PDT Approved by: Edwin Parmar MD on 10/17/2021 10:47 AM PDT Station ID: [id number]
[2021-10-17 11:15] LABS: BASOPHILS % (AUTO) 0.2 %; EOSINOPHILS # (AUTO) 0.1 10^3/uL (0.0-0.7); EOSINOPHILS % (AUTO) 0.4 %; HGB - HEMOGLOBIN 17.2 g/dL (14.0-18.0); LYMPHOCYTES # (AUTO) 1.7 10^3/uL (1.5-3.5); LYMPHOCYTES % (AUTO) 10.4 %; MEAN CORPUSCULAR HEMOGLOBIN 34.5 pg (27.0-31.0); MEAN CORPUSCULAR HGB CONC 35.1 g/dL (32.0-36.0); MEAN CORPUSCULAR VOLUME 98.4 fL (80.0-94.0); MONOCYTES # (AUTO) 0.9 10^3/uL (0.0-1.0); MONOCYTES % (AUTO) 5.9 %; NEUTROPHILS # (AUTO) 13.2 10^3/uL (1.5-6.6); NEUTROPHILS % (AUTO) 82.5 %; PLT - PLATELET COUNT 310 10^3/uL (130-450); RED BLOOD COUNT 4.98 10^6/uL (4.70-6.10); RED CELL DISTRIBUTION WIDTH 12.7 % (12.0-15.0)
--- NOTE | 2021-10-17 11:21 | CT Report ---
PROCEDURE: CT brain without contrast INDICATIONS: fall, on Eliquis TECHNIQUE: Noncontrast 4.5 mm thick angled axial sections acquired from the foramen magnum to the vertex. For r adiation dose reduction, the following was used: automated exposure control, adjustment of mA and/or kV according to patient size. COMPARISON: None. FINDINGS: Image quality: Excellent. CSF spaces: Basal cisterns are patent. No extra-axial fluid collections. Ventricles are normal in size and shape. Brain: No midline shift. No intracranial masses or hemorrhage. Hall-white matter interface is norm al. Moderate atrophy and multifocal white matter chronic ischemic change noted. Skull and face: Calvarium and visualized facial bones are intact, without suspicious lesions. Sinuses: Visualized sinuses and mastoids are clear. IMPRESSION: Atrophy and chronic ischemic change without intracranial hemorrhage or mass effect. Reviewed by: Rasheed River MD on 10/17/2021 10:19 AM KATIE Approved by: Rasheed River MD on 10/17/2021 10:19 AM AKRUTH Station ID: [id number]
--- NOTE | 2021-10-17 11:23 | CT Report ---
PROCEDURE: CERVICAL SPINE WO INDICATIONS: fall with neck/upper back pain TECHNIQUE: Noncontrast 3 mm thick sections acquired from the skull base to the T4 level. Sagittal and coronal r eformats were then constructed. For radiation dose reduction, the following was used: automated exp osure control, adjustment of mA and/or kV according to patient size. COMPARISON: 10/22/2017 FINDINGS: Image quality: Excellent. Bones: No fractures or dislocations. Visualized superior ribs are intact. Mild degenerative disc d isease and arthropathy noted in the mid cervical spine with mild central stenosis. Soft tissues: Prevertebral soft tissues are normal in thickness. No paravertebral hematomas. No ap ical pneumothoraces. IMPRESSION: No fracture or traumatic malalignment. Mild degenerative disc disease Reviewed by: Rasheed River MD on 10/17/2021 10:22 AM KATIE Approved by: Rasheed River MD on 10/17/2021 10:22 AM AKRUTH Station ID: [id number]
[2021-10-17 11:24] LABS: VBG PH 7.522 (7.31-7.41)
[2021-10-17 11:25] LABS: VBG BASE EXCESS 2.9 mmol/L (-2 - +2); VBG HCO3 24.6 mmol/L (23-28); VBG OXYGEN SATURATION 92.7 % (60-80); VBG PCO2 30.7 mmHg (41-51); VBG PO2 57.8 mmHg (25-47); VBG TOTAL CO2 25.6 mmol/L (24-29)
--- NOTE | 2021-10-17 11:28 | CT Report ---
PROCEDURE: CT chest without contrast INDICATIONS: fall with upper back pain TECHNIQUE: Noncontrast 1mm axial images were acquired from the pulmonary apices to the posterior costophrenic an gles. Axial 5 mm soft tissue kernel reconstructions were performed as well as 8 mm axial MIP and cor onal and sagittal 5 mm reformations. For radiation dose reduction, the following was used: automate d exposure control, adjustment of mA and/or kV according to patient size. COMPARISON: None FINDINGS: Image quality: Motion artifact limits assessment of osseous structures. Patient's arms in the field-o f-view also result image degradation. Lungs and pleura: No acute air space opacities. No pleural effusions or pneumothorax. Central and peripheral airways are patent and normal in caliber. Small pneumatoceles noted in the right Mediastin um: Heart size is normal. No pericardial effusion. No mediastinal adenopathy by size criteria. Th oracic aorta and central pulmonary arteries are normal in size. Esophagus is normal in caliber. No hiatal hernia. Bones and chest wall: No suspicious bony lesions. No vertebral body compression fractures. No axil vlad or supraclavicular adenopathy by size criteria. The thyroid is normal in size and there are no incidental findings. Abdomen: Nonobstructive calculi noted in both kidneys, partially imaged. Ovoid hypodense nodule left adrenal gland measures 3.8 x 2.2 cm IMPRESSION: 1. No evidence of acute injury. 2. Incidental nonobstructive renal calculi and right adrenal adenoma 3. Motion artifact Reviewed by: Rasheed River MD on 10/17/2021 10:27 AM KATIE Approved by: Rasheed River MD on 10/17/2021 10:27 AM AKDT Station ID: [id number]
[2021-10-17 11:43] LABS: ACETAMINOPHEN < 10 ug/mL (10-30); ALBUMIN/GLOBULIN RATIO 1.3 (1.0-2.2); ALKALINE PHOSPHATASE 75 IU/L (42-121); ALT ALANINE AMINOTRANSFERASE 38 IU/L (10-60); AST ASPARTATE AMINOTRANSFERASE 49 IU/L (10-42); BILIRUBIN,TOTAL 1.1 mg/dL (0.2-1.0); BUN - BLOOD UREA NITROGEN 33 mg/dL (6-20); CARBON DIOXIDE - CO2 23 mmol/L (21-32); CHLORIDE 90 mmol/L (101-111); ETOH - ETHANOL < 5.0 mg/dL; GFR - MDRD 76 (>89); LIPASE 51 U/L (22-51); MAGNESIUM 2.1 mg/dL (1.7-2.8); POTASSIUM 5.7 mmol/L (3.5-5.0); SALICYLATE < 6.0 mg/dL; SODIUM 136 mmol/L (135-145); TOTAL PROTEIN 8.8 g/dL (6.7-8.2)
[2021-10-17 11:52] LABS: GLUCOSE 1178 mg/dL (70-100)
[2021-10-17 11:53] LABS: KETONES, SERUM (ACETEST) SMALL (NEGATIVE)
[2021-10-17] MEDS ORDERED: INSULIN REGULAR HUMAN 100 UNIT in SODIUM CHLORIDE 0.9% 100ML 99 ML IV STA (12:00)
[2021-10-17] MEDS ORDERED: INSULIN REGULAR HUMAN 100 UNIT/1 ML 10 ML MDV IVP STA (12:00)
[2021-10-17] MEDS ORDERED: diltiaZEM INJ 125 MG in DEXTROSE 5% 100 ML IV STA (12:01)
[2021-10-17 12:17] LABS: CARBAMAZEPINE (TEGRETOL) < 2.0 ug/mL
[2021-10-17] MEDS ORDERED: CEFEPIME 2 GM in SODIUM CHLORIDE 0.9% MINIBAG 100 ML IV STA (12:20)
[2021-10-17] MEDS ORDERED: VANCOMYCIN INJ 1.25 GM in SODIUM CHLORIDE 0.9% 250 ML IV STA (12:20)
[2021-10-17] MEDS ORDERED: metroNIDAZOLE 500 MG/100 ML 500 MG/100 ML BAG IV STA (12:20)
[2021-10-17] MEDS ORDERED: ACETAMINOPHEN 1,000 MG/100 ML 1,000 MG/100 ML BAG IV ONE ×2 (12:35→15:17)
--- NOTE | 2021-10-17 13:11 | ED Physician Documentation ---
ED Addendum - Addendum Addendum: 10/17/21 13:10 Procedure note, central line: Unable to obtain consent due to altered mental status. The patient was prepped twice with ChloraPrep. I wore cap, mask, gown, sterile gloves. Full sterile sheet was utilized. Using real-time ultrasound guidance the right internal jugular vein was accessed and using Seldinger technique a triple-lumen 7 [place] central line was placed in standard fashion and sutured into place without immediate complications.
--- NOTE | 2021-10-17 13:38 | XRAY Report ---
PROCEDURE: Chest for Line Placement INDICATIONS: Right IJ CVC TECHNIQUE: One view of the chest was acquired. COMPARISON: Chest xray 10/17/21 FINDINGS: Surgical changes and devices: Right sided central venous catheter is present, with distal projecting over the distal SVC. Lungs and pleura: No pleural effusions or pneumothorax. Mild increased pulmonary vascularity. Mediastinum: Mediastinal contours appear normal. Heart size is normal. Bones and chest wall: No suspicious bony lesions. Overlying soft tissues appear unremarkable. IMPRESSION: Central venous catheter as above. Mild increased vascularity suggestive of edema. Reviewed by: Katya Palmer MD on 10/17/2021 1:37 PM PDT Approved by: Katya Palmer MD on 10/17/2021 1:37 PM PDT Station ID: [id number]
[2021-10-17 13:51] LABS: MUDS CUTOFF CONCENTRATIONS CUTOFF CONC BELOW:
[2021-10-17 13:53] LABS: BILIRUBIN,URINE NEGATIVE (NEGATIVE); GLUCOSE, URINE (UA) >=1000 mg/dL (NEGATIVE); KETONES,URINE (UA) TRACE mg/dL (NEGATIVE); LEUKOCYTE ESTERASE, URINE NEGATIVE (NEGATIVE); NITRITE,URINE NEGATIVE (NEGATIVE); OCCULT BLOOD,URINE SMALL (NEGATIVE); PROTEIN,URINE TRACE mg/dL (NEGATIVE); UROBILINOGEN,URINE 0.2 (NORMAL) E.U./dL (NORMAL)
[2021-10-17 13:57] LABS: CLARITY,URINE CLEAR (CLEAR)
[2021-10-17 14:08] LABS: AMPHETAMINE SCREEN,URINE NEGATIVE (NEGATIVE); BACTERIA,URINE Rare /HPF (None Seen); BARBITURATE SCREEN,UR NEGATIVE (NEGATIVE); COCAINE SCREEN URINE NEGATIVE (NEGATIVE); METHADONE SCREEN, URINE NEGATIVE (NEGATIVE); METHAMPHETAMINES SCREEN, URINE NEGATIVE (NEGATIVE); OPIATE SCREEN, URINE NEGATIVE (NEGATIVE); OXYCODONE SCREEN, URINE NEGATIVE (NEGATIVE); PROPOXYPHENE SCREEN, URINE NEGATIVE (NEGATIVE); RBC,URINE None Seen /HPF (0-5); SQUAMOUS EPITHELIAL CELL,UR RARE Squamous (<= Few); THC CANNABINOID SCREEN, URINE NEGATIVE (NEGATIVE); TRICYCLIC ANTIDEPRESSANT,URINE NEGATIVE (NEGATIVE); WBC,URINE 0-3 /HPF (0-3)
[2021-10-17 14:09] LABS: BENZODIAZEPINES SCREEN, URINE POSITIVE (NEGATIVE)
[2021-10-17 14:48] LABS: POTASSIUM 4.2 mmol/L (3.5-5.0)
[2021-10-17 14:51] LABS: CALCIUM 13.5 mg/dL (8.5-10.3)
[2021-10-17] MEDS ORDERED: METOPROLOL 5 MG/5 ML VIAL IVP STA (15:16)
[2021-10-17] MEDS ORDERED: FUROSEMIDE 20 MG/2 ML VIAL IVP STA (15:30)
--- NOTE | 2021-10-17 15:39 | HISTORY & PHYSICAL EXAMINATION ---
Chief Complaint - Chief Complaint Chief Complaint: AMS History of Present Illness - Admitted From Admitted From:: ED - History Obtained From Records Reviewed: Yes History obtained from: ED provider - History of Present Illness HPI Comment/Other: This is a 61-year-old male with a history of cranial deformity, history of A. fib not on anticoag, DM type 2 on Insulin and Metformin, hypertension, hyperlipidemia, obesity, seizure disorder. The patient's brother lives with him and called an ambulance today when the patient was not acting himself. He was groggy, confused, thrashing around but not agitated or combative. EMS personel found that there were unopened Insulin and syringes in the residence (presumably unused Insulin therefore). In the ED, he was found to have a glucose of 1100, potassium 5.7, sodium of 136, serum ketone small, and he was lethargic but arousable only briefly, moving all extremities spontaneously. He underwent a head and neck CT that showed no acute findings but there were microvascular changes plus atrophy on the brain imaging. He was started on an insulin drip and aggressive saline infusion by IV. He also was found to be in A. fib with RVR at rates of 160. He had diltiazem IV bolus given, which only decreased his heart rate to 130 and then he was started on diltiazem drip. Other labs show that he had a white blood count of 16, temperature of 38.9, chest x-ray showing diffuse interstitial changes, lactic acid was not done and troponin was not done. Blood cultures were taken and he was put on empiric broad-spectrum antibiotics including iv cefepime, vancomycin and Flagyl. The patient is being admitted to the ICU by the hospitalist team to manage hyperosmolar nonketotic state, A. fib with RVR, and sepsis with a fever and elevated white count, source unknown. 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 HEENT: reports: Chronic sinusitis Psych: reports: Depression, Anxiety, Obsessive compulsive disorder Musculoskeletal: reports: Chronic back pain, Other Derm: reports: None MRSA Hx?: No - Past Surgical History Ortho: reports: Carpal Tunnel surgery - Family & Social History Family History: Mother: , Cancer, Father: , Cancer, Brother: Alive and Well, Diabetes, Type 2, Obesity Living arrangement: At home Living Situation: With family Social History Notes: The patient moved from [place] to [place] a few years ago and resides independently with his brother, with whom he has lived for his whole life. He has never been , has no children. He denies illicit drug use, alcohol use, or tobacco use. He wishes to be a FULL code, according to his last admission - Substance History Use: Uses substance without health or social issues: NONE - POLST Patient has POLST: No POLST Status: Full Code Meds/Allgy - Home Medications Home Medications: Ambulatory Orders Medication Instructions Recorded Confirmed Insulin Glargine [Lantus] 50 unit SUBQ 1700 08/09/12 12/16/20 Metformin HCl [Metformin ER 1,000 mg PO BIDWM 08/09/12 12/16/20 Osmotic] Atorvastatin Calcium 40 mg PO QPM 10/22/17 10/22/17 Fenofibrate 160 mg PO DAILY 10/22/17 12/16/20 Folic Acid 1 mg PO DAILY 10/22/17 12/16/20 carBAMazepine [Carbamazepine ER] 800 mg PO BID 10/22/17 12/16/20 lisinopriL [Lisinopril] 10 mg PO DAILY 10/22/17 12/16/20 Bacitracin/Polymyxin Ophth Oin 1 applic RIGHTEYE QID #1 tube 10/25/17 [Polysporin Ophth Oint] Verapamil HCl [Verelan] 1 tab PO DAILY 12/16/20 12/16/20 - Allergies Allergies/Adverse Reactions: Allergies Allergy/AdvReac Type Severity Reaction Status Date / Time codeine AdvReac Intermediate Emesis Verified 12/16/20 18:30 Penicillins AdvReac Unknown Verified 12/16/20 18:30 Review of Systems - Musculoskeletal Musculoskeletal: reports: Back pain - Neurological Neurological: reports: Headache - All Other Systems All Other Systems: reports: Other (This cannot be obtained in detail, since the patient is obtunded and minimally communicative, no family is around.) Exam - Vital Signs Reviewed Vital Signs: Yes Vital Signs: Vital Signs x48h Temp Pulse Resp BP Pulse Ox 10/17/21 15:18 39.5 C H 159 H 91 L 07/15/22 15:00 160 H 41 H 145/108 H 93 10/17/21 14:30 159 H 33 H 151/99 H 92 10/17/21 14:26 152 H 40 H 143/109 H 92 10/17/21 13:55 39.4 C H 10/17/21 13:30 161 H 38 H 133/103 H 92 10/17/21 13:00 166 H 28 H 180/99 H 95 10/17/21 12:30 157 H 152/74 H 96 10/17/21 12:00 168 H 177/69 H 94 10/17/21 11:34 154 H 30 H 89 L 10/17/21 11:20 169 H 95 10/17/21 11:14 168 H 95 10/17/21 10:10 38.9 C H 171 H 22 235/116 H 95 - Physical Exam General Appearance: positive: Lethargic, Other (The patient has enlarged skull with abnormal shape. Long weiss and facial hair, well kempt.) Eyes Bilateral: positive: No lid inflammation ENT: positive: Dry mucous membranes Neck: positive: Nml inspection, No JVD Respiratory: positive: No respiratory distress, Breath sounds nml Cardiovascular: positive: No murmur, Irregularly irregular, Tachycardia Abdomen: positive: Nml bowel sounds, No distention Skin: positive: Warm, Dry Extremities: positive: Non-tender, No pedal edema Neurologic/Psychiatric: positive: Other (Obtunded, Moves all 4 extremities spontaneously, murmurs some words.) Conclusion/Plan - Problem List (1) Hyperosmolar hyperglycemic state (HHS) Conclusion/Plan: The patient does have serum ketones present but is VBG shows he is alkalotic, therefore he has respiratory alkalosis. His serum glucose is 1100. Etiology appears that he has been noncompliant with diabetic management. Will admit him to the ICU, start DKA protocol, insulin drip, iv fluids, follow labs very closely. (2) Atrial fibrillation with RVR Conclusion/Plan: He has a Hx of Aib and may be tachycardic partly because of the volume contraction due to #1. IV diltiazem has been started in the ED and will continue to attempt to achieve rate control. Will also give scheduled IV Lopressor pushes for rate control. Will obtain troponins to assess if ACS as the cause of this A. fib. Will check TSH to rule out hyperthyroidism. Would like to order an Echocardiogram however that services not available here until 4 days from now. Will try to determine why he is no anticoagulation or aspirin for stroke prophylaxis. (3) Altered mental status Conclusion/Plan: He is obtunded however there are spontaneous motions of his extremities. The most likely etiology is his hyperosmolar state. He did undergo a head CT that showed microvascular changes but nothing acute to explain this level of obtundation. Will monitor in the ICU (4) Sepsis Conclusion/Plan: He has a fever, elevated WBC, tachycardia, new AMS thus he is septic. Etiology of his sepsis is not readily obvious. His neck is not stiff. He has been started on empiric antibiotics including IV cefepime, vancomycin and Flagyl and we will continue these. Await culture results. Monitor to determine if an obvious source of infection is found. If his neuro status remains abnormal, an LP will be ordered. (5) Diabetes mellitus type 2 in obese Conclusion/Plan: As per Hx. Details of his recent activity or noncompliance with medications are not known yet (6) Seizure disorder Conclusion/Plan: Will order his usual meds once reconciled - Lab Results Fish Bones: 10/17/21 11:10 10/17/21 19:01 - Diagnostic Imaging Results Diagnostic Imaging Results: positive: Final report reviewed - Other Other Results/Comments: Attestation: The patient is expected to be discharged or transferred to another facility within 72 hours: Yes.
[2021-10-17] MEDS ORDERED: diltiaZEM INJ 125 MG in DEXTROSE 5% 100 ML IV SCH (16:00)
[2021-10-17] MEDS ORDERED: POTASSIUM CHLORIDE INJ 10 MEQ in SODIUM CHLORIDE 0.45% 1,000 ML IV SCH (16:00)
[2021-10-17] MEDS ORDERED: INSULIN REGULAR HUMAN 100 UNIT in SODIUM CHLORIDE 0.9% 100ML 99 ML IV SCH (16:00)
[2021-10-17] MEDS ORDERED: SODIUM CHLORIDE 0.9% 1,000 ML IV SCH ×2 (16:00)
[2021-10-17] MEDS ORDERED: SODIUM CHLORIDE 0.45% 1,000 ML IV SCH ×2 (16:00→20:00)
[2021-10-17 16:06] LABS: BUN - BLOOD UREA NITROGEN 32 mg/dL (6-20); CARBON DIOXIDE - CO2 27 mmol/L (21-32); CHLORIDE 106 mmol/L (101-111); CREATININE 1.1 mg/dL (0.6-1.2); GFR - MDRD 68 (>89); MAGNESIUM 2.1 mg/dL (1.7-2.8); POTASSIUM 4.3 mmol/L (3.5-5.0); SODIUM 149 mmol/L (135-145)
[2021-10-17 16:09] LABS: CALCIUM 13.5 mg/dL (8.5-10.3); GLUCOSE 681 mg/dL (70-100)
[2021-10-17 16:12] LABS: VBG BASE EXCESS 3.9 mmol/L (-2 - +2); VBG HCO3 25.7 mmol/L (23-28); VBG OXYGEN SATURATION 91.8 % (60-80); VBG PCO2 31.2 mmHg (41-51); VBG PH 7.533 (7.31-7.41); VBG PO2 54.7 mmHg (25-47); VBG TOTAL CO2 26.6 mmol/L (24-29)
[2021-10-17 16:18] LABS: KETONES, SERUM (ACETEST) NEGATIVE (NEGATIVE)
[2021-10-17] MEDS ORDERED: METOPROLOL 5 MG/5 ML VIAL IVP PRN (16:50)
[2021-10-17 17:18] LABS: BUN - BLOOD UREA NITROGEN 32 mg/dL (6-20); CARBON DIOXIDE - CO2 29 mmol/L (21-32); CHLORIDE 106 mmol/L (101-111); GFR - MDRD 76 (>89); MAGNESIUM 2.3 mg/dL (1.7-2.8); POTASSIUM 3.9 mmol/L (3.5-5.0); SODIUM 152 mmol/L (135-145)
[2021-10-17 17:20] LABS: CALCIUM 13.8 mg/dL (8.5-10.3)
[2021-10-17 17:21] LABS: GLUCOSE 534 mg/dL (70-100)
[2021-10-17 17:25] LABS: KETONES, SERUM (ACETEST) NEGATIVE (NEGATIVE)
[2021-10-17] MEDS: SODIUM CHLORIDE FLUSH 0.9% 10 ML SYRINGE IVP PRN ×4 (17:50→22:09)
[2021-10-17] MEDS: SODIUM CHLORIDE FLUSH 0.9% 10 ML SYRINGE IVP SCH ×2 (17:50→20:14)
[2021-10-17 17:59] LABS: MAGNESIUM 2.3 mg/dL (1.7-2.8); PHOSPHORUS 3.2 mg/dL (2.5-4.6); POTASSIUM 3.9 mmol/L (3.5-5.0)
[2021-10-17] MEDS ORDERED: VANCOMYCIN INJ 2 GM in SODIUM CHLORIDE 0.9% 500 ML IV SCH (18:00)
--- NOTE | 2021-10-17 18:22 | PHARMACY PROGRESS NOTE ---
- Therapy Status Vancomycin regimen day #: 1 Therapy status: Awaiting steady state Basis for treatment: Empirical Treatment indication: Sepsis Trough goal: 15-20 Concurrent antibiotics: Cefepime 2G Q12H, Flagyl 500mg IV Q8H - KEELY Risk Risk level for Acute Kidney Injury: High Acute Kidney Injury risk factors: Goal trough >15, Diabetes (LD 2G x 1 @1800 , followed by 1.75G Q12H.), Admission to ICU, Sepsis - Monitoring and Recommendation Clinical response to treatment: I&O Previous 24 hours 10/15/21 10/16/21 10/17/21 23:59 23:59 23:59 Intake Total 1159.515 Output Total 825 Balance 334.515 Lab Results 10/17/21 10/17/21 10/17/21 16:45 15:40 14:31 BUN 32 H 32 H 34 H Creatinine 1.0 1.1 1.0 Estimated GFR (MDRD) 76 L 68 L 76 L 10/17/21 11:10 BUN 33 H Creatinine 1.0 Estimated GFR (MDRD) 76 L Monitoring plan: Daily serum creatinine Next trough due prior to maintenance dose #: 4 Next trough due (date/time): 10/19 @6379 Areas for additional monitoring: IV to PO when appropriate, Therapy de- escalation based on culture results, Acute Kidney Injury
[2021-10-17 18:24] LABS: BUN - BLOOD UREA NITROGEN 33 mg/dL (6-20); CARBON DIOXIDE - CO2 30 mmol/L (21-32); CHLORIDE 106 mmol/L (101-111); GFR - MDRD 76 (>89); MAGNESIUM 2.2 mg/dL (1.7-2.8); POTASSIUM 3.5 mmol/L (3.5-5.0); SODIUM 153 mmol/L (135-145)
[2021-10-17] MEDS ORDERED: VANCOMYCIN INJ 2 GM in SODIUM CHLORIDE 0.9% 500 ML IV ONE (18:28)
[2021-10-17 18:30] LABS: GLUCOSE 506 mg/dL (70-100)
[2021-10-17 18:32] LABS: CALCIUM 13.7 mg/dL (8.5-10.3)
[2021-10-17 18:35] LABS: KETONES, SERUM (ACETEST) NEGATIVE (NEGATIVE)
[2021-10-17] MEDS ORDERED: POTASSIUM CHLOR 20 MEQ/100 ML 20 MEQ/100 ML BAG IV ONE ×2 (18:46→22:00)
[2021-10-17] MEDS: metroNIDAZOLE 500 MG/100 ML 500 MG/100 ML BAG IV SCH (20:29)
[2021-10-17] MEDS: ACETAMINOPHEN 325 MG TABLET PO PRN (20:33)
[2021-10-17] MEDS ORDERED: oxyCODONE 5 MG TABLET PO PRN (20:53)
[2021-10-17 20:58] LABS: KETONES, SERUM (ACETEST) NEGATIVE (NEGATIVE)
[2021-10-17 21:00] LABS: BUN - BLOOD UREA NITROGEN 28 mg/dL (6-20); CARBON DIOXIDE - CO2 30 mmol/L (21-32); CHLORIDE 108 mmol/L (101-111); CREATININE 0.9 mg/dL (0.6-1.2); GFR - MDRD 86 (>89); GLUCOSE 420 mg/dL (70-100); PHOSPHORUS 4.2 mg/dL (2.5-4.6); POTASSIUM 3.5 mmol/L (3.5-5.0); SODIUM 153 mmol/L (135-145)
[2021-10-17 21:02] LABS: CALCIUM 12.7 mg/dL (8.5-10.3)
[2021-10-17] MEDS: CEFEPIME 2 GM in SODIUM CHLORIDE 0.9% MINIBAG 100 ML IV SCH (21:21)
[2021-10-17] MEDS: HYDROmorphone 0.5 MG/0.5 ML SYRINGE IVP PRN (21:22)
[2021-10-17] MEDS: NS W/20 MEQ KCL 1,000 ML IV SCH (21:47)
[2021-10-17] MEDS: FAMOTIDINE 20 MG TABLET PO SCH (22:16)
[2021-10-17 22:30] LABS: KETONES, SERUM (ACETEST) NEGATIVE (NEGATIVE)
[2021-10-17 22:31] LABS: BUN - BLOOD UREA NITROGEN 27 mg/dL (6-20); CARBON DIOXIDE - CO2 31 mmol/L (21-32); CHLORIDE 110 mmol/L (101-111); CREATININE 0.9 mg/dL (0.6-1.2); GFR - MDRD 86 (>89); GLUCOSE 354 mg/dL (70-100); MAGNESIUM 2.1 mg/dL (1.7-2.8); PHOSPHORUS 3.8 mg/dL (2.5-4.6); POTASSIUM 3.7 mmol/L (3.5-5.0)
[2021-10-17 22:35] LABS: CALCIUM 12.6 mg/dL (8.5-10.3); SODIUM 155 mmol/L (135-145)
[2021-10-18] MEDS ORDERED: diltiaZEM INJ 125 MG in DEXTROSE 5% 100 ML IV SCH ×2
[2021-10-18] MEDS ORDERED: POTASSIUM CHLOR 20 MEQ/100 ML 20 MEQ/100 ML BAG IV ONE ×3 (00:11→06:31)
[2021-10-18] MEDS: SODIUM CHLORIDE FLUSH 0.9% 10 ML SYRINGE IVP PRN ×4 (02:35→20:10)
[2021-10-18] MEDS: DEXTROSE 5%-0.45% NACL 1,000 ML IV SCH ×2 (02:38→11:13)
[2021-10-18 02:50] LABS: PHOSPHORUS 2.8 mg/dL (2.5-4.6)
[2021-10-18] MEDS: HYDROmorphone 0.5 MG/0.5 ML SYRINGE IVP PRN ×3 (03:05→23:43)
[2021-10-18] MEDS ORDERED: INSULIN REGULAR HUMAN 100 UNIT in SODIUM CHLORIDE 0.9% 100ML 99 ML IV SCH (05:00)
[2021-10-18] MEDS: metroNIDAZOLE 500 MG/100 ML 500 MG/100 ML BAG IV SCH ×3 (05:14→20:10)
[2021-10-18] MEDS: FUROSEMIDE 20 MG/2 ML VIAL IVP SCH ×2 (05:16→14:50)
[2021-10-18 05:25] LABS: BASOPHILS # (AUTO) 0.1 10^3/uL (0.0-0.1); BASOPHILS % (AUTO) 0.3 %; HCT - HEMATOCRIT 48.3 % (42.0-52.0); HGB - HEMOGLOBIN 16.7 g/dL (14.0-18.0); LYMPHOCYTES # (AUTO) 3.1 10^3/uL (1.5-3.5); LYMPHOCYTES % (AUTO) 12.7 %; MEAN CORPUSCULAR HEMOGLOBIN 34.9 pg (27.0-31.0); MEAN CORPUSCULAR HGB CONC 34.6 g/dL (32.0-36.0); MEAN CORPUSCULAR VOLUME 100.8 fL (80.0-94.0); MEAN PLATELET VOLUME 9.7 fL (7.4-11.4); MONOCYTES # (AUTO) 1.9 10^3/uL (0.0-1.0); MONOCYTES % (AUTO) 7.9 %; NEUTROPHILS % (AUTO) 78.1 %; PLT - PLATELET COUNT 232 10^3/uL (130-450); RED BLOOD COUNT 4.79 10^6/uL (4.70-6.10); RED CELL DISTRIBUTION WIDTH 13.7 % (12.0-15.0); WHITE BLOOD COUNT 24.4 x10^3/uL (4.8-10.8)
[2021-10-18 05:46] LABS: CREATININE 0.8 mg/dL (0.6-1.2); MAGNESIUM 1.8 mg/dL (1.7-2.8); PHOSPHORUS 2.5 mg/dL (2.5-4.6); POTASSIUM 3.9 mmol/L (3.5-5.0)
[2021-10-18] MEDS: VANCOMYCIN INJ 1.75 GM in SODIUM CHLORIDE 0.9% 500 ML IV SCH ×2 (06:11→17:12)
[2021-10-18] MEDS: NS W/20 MEQ KCL 1,000 ML IV SCH ×3 (06:11→22:27)
[2021-10-18 06:55] LABS: DIFFERENTIAL COMMENT MANUAL=AUTO DIFF; PLATELET ESTIMATE, MANUAL NORMAL (130-450,000) (NORMAL); RBC MORPHOLOGY (MULTIPLE) NORMAL APPEARANCE (NORMAL)
[2021-10-18] MEDS: FAMOTIDINE 20 MG TABLET PO SCH ×2 (07:47→21:12)
[2021-10-18] MEDS: CEFEPIME 2 GM in SODIUM CHLORIDE 0.9% MINIBAG 100 ML IV SCH ×2 (07:47→21:10)
[2021-10-18] MEDS: NEUTRA-PHOS 250 MG TABLET PO SCH ×2 (07:47→10:03)
[2021-10-18] MEDS: ACETAMINOPHEN 325 MG TABLET PO PRN (07:48)
[2021-10-18] MEDS ORDERED: MAGNESIUM SULFATE 2 GRAM 2 GM/50 ML BAG IV ONE (08:00)
[2021-10-18] MEDS: diltiaZEM INJ 125 MG in DEXTROSE 5% 100 ML IV SCH (08:17)
--- NOTE | 2021-10-18 08:56 | PHARMACY PROGRESS NOTE ---
- Best Possible Medication History Admit Date and Time: 10/17/21 1516 Processed by: Pharmacy Medication History completed: Yes Patient Interview: Pt unable to participate Secondary Source(s): Physician records, Pharmacy records, Insurance records As the person ultimately responsible for medication therapy, providers are able to order a medication from an existing home medication list in [facility] via the "Reconcile Routine" prior to Confirmation of that medication by supportive employment case manager. Such practice is discouraged except when the physician, in their clinical judgment, deems that a medical need exists for a medication without regard to previous use.
[2021-10-18 09:45] LABS: THYROID STIMULATING HORMONE 0.22 uIU/mL (0.34-5.60)
[2021-10-18 09:48] LABS: FREE T4 (FREE THYROXINE) 0.88 ng/dL (0.58-1.64)
[2021-10-18] MEDS: ENOXAPARIN 40 MG/0.4 ML SYRINGE SUBQ SCH (10:01)
[2021-10-18] MEDS: SODIUM CHLORIDE FLUSH 0.9% 10 ML SYRINGE IVP SCH ×3 (10:01→23:43)
[2021-10-18] MEDS: APIXABAN 5 MG TABLET PO SCH ×2 (10:01→21:12)
[2021-10-18] MEDS: carBAMazepine ER 200 MG TABLET PO SCH ×2 (10:02→21:12)
[2021-10-18] MEDS: IBUPROFEN 600 MG TABLET PO PRN ×2 (10:03→21:11)
[2021-10-18] MEDS ORDERED: INSULIN GLARGINE 300 UNIT/3 ML PEN SUBQ SCH (12:00)
[2021-10-18] MEDS: DEXTROSE 5% 1,000 ML IV SCH (13:02)
[2021-10-18] MEDS: METOPROLOL SUCCINATE 50 MG TABLET PO SCH (13:03)
--- NOTE | 2021-10-18 13:28 | CT Report ---
PROCEDURE: CT lumbar spine without contrast INDICATIONS: eval for source of infection TECHNIQUE: Noncontrast 3 mm thick sections acquired from the T12 level to the sacrum. Sagittal and coronal refo rmats were constructed. For radiation dose reduction, the following was used: automated exposure co ntrol, adjustment of mA and/or kV according to patient size. COMPARISON: None. FINDINGS: Image quality: Excellent. Bones: There is normal bony alignment. No acute vertebral body compression fractures. No suspiciou s lytic or blastic bony lesions. Central spinal caliber is of normal overall caliber. No pars defec ts. At the disc levels, there is disc space narrowing and cervical disc bulge in the lower lumbar spine r esulting in mild to moderate central stenosis, and moderate bilateral foraminal stenosis at L4-5 and L5-S1.. Soft tissues: Nonocclusive bilateral renal calculi noted, greater in the right. No hydronephrosis. IMPRESSION: No noncontrast CT evidence of infectious source. No osseous lytic lesion Multilevel degenerative disc disease and arthropathy in the lower lumbar spine Reviewed by: Rasheed River MD on 10/18/2021 12:26 PM AKRUTH Approved by: Rasheed River MD on 10/18/2021 12:26 PM AKDT Station ID: [id number]
[2021-10-18] MEDS ORDERED: LIDOCAINE-MPF 1% 5 ML VIAL ONE (14:41)
--- NOTE | 2021-10-18 15:01 | PROVIDER PROGRESS NOTE ---
Subjective - Subjective Pt reports feeling: No change (Per RN and my evals) Objective - Vital Signs/Intake & Output Vital Signs: Vital Signs Temp Pulse Resp BP Pulse Ox 10/18/21 13:00 39.4 C H 125 H 27 H 139/86 H 96 10/18/21 12:05 40.2 C H 124 H 36 H 135/97 H 97 10/18/21 11:42 40 C H 120 H 25 H 93 Intake & Output: Intake & Output 10/15/21 10/16/21 10/17/21 10/18/21 23:59 23:59 23:59 23:59 Intake Total 4942.362 2232.694 Output Total 2900 1100 Balance 2042.362 1132.694 - Objective General Appearance: positive: Mild distress (Appears in pain, is fidgety), Other (Mostly obtunded, moving spontaneously, eyes closed, follows some commands and can take sips of liquids thru a straw) Eyes Bilateral: positive: Normal inspection, No lid inflammation ENT: positive: Dry mucous membranes Neck: positive: Nml inspection, No JVD Respiratory: positive: Breath sounds nml Cardiovascular: positive: No murmur, Irregularly irregular, Tachycardia Abdomen: positive: No distention (Soft) Skin: positive: Warm, Dry Neurologic/Psychiatric: positive: Other (Mostly obtunded, moving head body and limbs sponraneously, able to follow some commands and grunt Yes, able to swallow liquids thru a straw) - Lab Results Fish Bones: 10/21/21 04:30 10/21/21 04:30 Other Labs: Lab Results x24hrs 10/18/21 10/18/21 10/18/21 Range/Units 05:07 05:07 05:07 WBC 24.4 H (4.8-10.8) x10^3/uL RBC 4.79 (4.70-6.10) 10^6/uL Hgb 16.7 (14.0-18.0) g/dL Hct 48.3 (42.0-52.0) % MCV 100.8 H (80.0-94.0) fL MCH 34.9 H (27.0-31.0) pg MCHC 34.6 (32.0-36.0) g/dL RDW 13.7 (12.0-15.0) % Plt Count 232 (130-450) 10^3/uL MPV 9.7 (7.4-11.4) fL Neut # (Auto) 19.0 H (1.5-6.6) 10^3/uL Lymph # (Auto) 3.1 (1.5-3.5) 10^3/uL O'Brien # (Auto) 1.9 H (0.0-1.0) 10^3/uL Eos # (Auto) 0.0 (0.0-0.7) 10^3/uL Baso # (Auto) 0.1 (0.0-0.1) 10^3/uL Absolute Nucleated RBC 0.00 x10^3/uL Band Neuts % (Manual) Not Reportable Abnorm Lymph % (Manual) Not Reportable Nucleated RBC % 0.0 /100WBC Neutrophils # (Manual) Not Reportable Lymphocytes # (Manual) Not Reportable Monocytes # (Manual) Not Reportable Eosinophils # (Manual) Not Reportable Basophils # (Manual) Not Reportable Differential Comment MANUAL=AUTO DIFF Platelet Estimate NORMAL (130-450,000) (NORMAL) RBC Morph Micro Appear NORMAL APPEARANCE (NORMAL) VBG pH (7.31-7.41) VBG pCO2 (41-51) mmHg VBG pO2 (25-47) mmHg VBG HCO3 (23-28) mmol/L VBG Total CO2 (24-29) mmol/L VBG O2 Saturation (60-80) % VBG Base Excess (-2 - +2) mmol/L Sodium 156 H* (135-145) mmol/L Potassium 3.9 (3.5-5.0) mmol/L Chloride 115 H (101-111) mmol/L Carbon Dioxide 30 (21-32) mmol/L Anion Gap 11.0 (6-13) BUN 27 H (6-20) mg/dL Creatinine 0.8 (0.6-1.2) mg/dL Estimated GFR (MDRD) 99 (>89) Glucose 270 H (70-100) mg/dL Calcium 12.0 H* (8.5-10.3) mg/dL Phosphorus 2.5 (2.5-4.6) mg/dL Magnesium 1.8 (1.7-2.8) mg/dL Ammonia 30.7 (7-35) umol/L Troponin I High Sens (2.3-19.7) ng/L Triglycerides 290 H ( - 149) mg/dL TSH (0.34-5.60) uIU/mL Free T4 (0.58-1.64) ng/dL Nasal Screen MRSA (PCR) (NEGATIVE) Serum Ketones (NEGATIVE) 10/18/21 10/18/21 10/18/21 Range/Units 02:30 02:30 02:30 WBC (4.8-10.8) x10^3/uL RBC (4.70-6.10) 10^6/uL Hgb (14.0-18.0) g/dL Hct (42.0-52.0) % MCV (80.0-94.0) fL MCH (27.0-31.0) pg MCHC (32.0-36.0) g/dL RDW (12.0-15.0) % Plt Count (130-450) 10^3/uL MPV (7.4-11.4) fL Neut # (Auto) (1.5-6.6) 10^3/uL Lymph # (Auto) (1.5-3.5) 10^3/uL O'Brien # (Auto) (0.0-1.0) 10^3/uL Eos # (Auto) (0.0-0.7) 10^3/uL Baso # (Auto) (0.0-0.1) 10^3/uL Absolute Nucleated RBC x10^3/uL Band Neuts % (Manual) Abnorm Lymph % (Manual) Nucleated RBC % /100WBC Neutrophils # (Manual) Lymphocytes # (Manual) Monocytes # (Manual) Eosinophils # (Manual) Basophils # (Manual) Differential Comment Platelet Estimate (NORMAL) RBC Morph Micro Appear (NORMAL) VBG pH (7.31-7.41) VBG pCO2 (41-51) mmHg VBG pO2 (25-47) mmHg VBG HCO3 (23-28) mmol/L VBG Total CO2 (24-29) mmol/L VBG O2 Saturation (60-80) % VBG Base Excess (-2 - +2) mmol/L Sodium (135-145) mmol/L Potassium 4.0 (3.5-5.0) mmol/L Chloride (101-111) mmol/L Carbon Dioxide (21-32) mmol/L Anion Gap (6-13) BUN (6-20) mg/dL Creatinine (0.6-1.2) mg/dL Estimated GFR (MDRD) (>89) Glucose (70-100) mg/dL Calcium (8.5-10.3) mg/dL Phosphorus 2.8 (2.5-4.6) mg/dL Magnesium 2.0 (1.7-2.8) mg/dL Ammonia (7-35) umol/L Troponin I High Sens (2.3-19.7) ng/L Triglycerides ( - 149) mg/dL TSH 0.22 L (0.34-5.60) uIU/mL Free T4 0.88 (0.58-1.64) ng/dL Nasal Screen MRSA (PCR) (NEGATIVE) Serum Ketones NEGATIVE (NEGATIVE) 10/17/21 10/17/21 10/17/21 Range/Units 22:00 20:00 19:01 WBC (4.8-10.8) x10^3/uL RBC (4.70-6.10) 10^6/uL Hgb (14.0-18.0) g/dL Hct (42.0-52.0) % MCV (80.0-94.0) fL MCH (27.0-31.0) pg MCHC (32.0-36.0) g/dL RDW (12.0-15.0) % Plt Count (130-450) 10^3/uL MPV (7.4-11.4) fL Neut # (Auto) (1.5-6.6) 10^3/uL Lymph # (Auto) (1.5-3.5) 10^3/uL O'Brien # (Auto) (0.0-1.0) 10^3/uL Eos # (Auto) (0.0-0.7) 10^3/uL Baso # (Auto) (0.0-0.1) 10^3/uL Absolute Nucleated RBC x10^3/uL Band Neuts % (Manual) Abnorm Lymph % (Manual) Nucleated RBC % /100WBC Neutrophils # (Manual) Lymphocytes # (Manual) Monocytes # (Manual) Eosinophils # (Manual) Basophils # (Manual) Differential Comment Platelet Estimate (NORMAL) RBC Morph Micro Appear (NORMAL) VBG pH (7.31-7.41) VBG pCO2 (41-51) mmHg VBG pO2 (25-47) mmHg VBG HCO3 (23-28) mmol/L VBG Total CO2 (24-29) mmol/L VBG O2 Saturation (60-80) % VBG Base Excess (-2 - +2) mmol/L Sodium 155 H* 153 H (135-145) mmol/L Potassium 3.7 3.5 (3.5-5.0) mmol/L Chloride 110 108 (101-111) mmol/L Carbon Dioxide 31 30 (21-32) mmol/L Anion Gap 14.0 H 15.0 H (6-13) BUN 27 H 28 H (6-20) mg/dL Creatinine 0.9 0.9 (0.6-1.2) mg/dL Estimated GFR (MDRD) 86 L 86 L (>89) Glucose 354 H 420 H 469 H (70-100) mg/dL Calcium 12.6 H* 12.7 H* (8.5-10.3) mg/dL Phosphorus 3.8 4.2 (2.5-4.6) mg/dL Magnesium 2.1 2.0 (1.7-2.8) mg/dL Ammonia (7-35) umol/L Troponin I High Sens (2.3-19.7) ng/L Triglycerides ( - 149) mg/dL TSH (0.34-5.60) uIU/mL Free T4 (0.58-1.64) ng/dL Nasal Screen MRSA (PCR) (NEGATIVE) Serum Ketones NEGATIVE NEGATIVE (NEGATIVE) 10/17/21 10/17/21 10/17/21 Range/Units 18:00 16:45 16:45 WBC (4.8-10.8) x10^3/uL RBC (4.70-6.10) 10^6/uL Hgb (14.0-18.0) g/dL Hct (42.0-52.0) % MCV (80.0-94.0) fL MCH (27.0-31.0) pg MCHC (32.0-36.0) g/dL RDW (12.0-15.0) % Plt Count (130-450) 10^3/uL MPV (7.4-11.4) fL Neut # (Auto) (1.5-6.6) 10^3/uL Lymph # (Auto) (1.5-3.5) 10^3/uL O'Brien # (Auto) (0.0-1.0) 10^3/uL Eos # (Auto) (0.0-0.7) 10^3/uL Baso # (Auto) (0.0-0.1) 10^3/uL Absolute Nucleated RBC x10^3/uL Band Neuts % (Manual) Abnorm Lymph % (Manual) Nucleated RBC % /100WBC Neutrophils # (Manual) Lymphocytes # (Manual) Monocytes # (Manual) Eosinophils # (Manual) Basophils # (Manual) Differential Comment Platelet Estimate (NORMAL) RBC Morph Micro Appear (NORMAL) VBG pH (7.31-7.41) VBG pCO2 (41-51) mmHg VBG pO2 (25-47) mmHg VBG HCO3 (23-28) mmol/L VBG Total CO2 (24-29) mmol/L VBG O2 Saturation (60-80) % VBG Base Excess (-2 - +2) mmol/L Sodium 153 H 152 H (135-145) mmol/L Potassium 3.5 3.9 3.9 (3.5-5.0) mmol/L Chloride 106 106 (101-111) mmol/L Carbon Dioxide 30 29 (21-32) mmol/L Anion Gap 17.0 H 17.0 H (6-13) BUN 33 H 32 H (6-20) mg/dL Creatinine 1.0 1.0 (0.6-1.2) mg/dL Estimated GFR (MDRD) 76 L 76 L (>89) Glucose 506 H* 534 H* (70-100) mg/dL Calcium 13.7 H* 13.8 H* (8.5-10.3) mg/dL Phosphorus 3.2 (2.5-4.6) mg/dL Magnesium 2.2 2.3 2.3 (1.7-2.8) mg/dL Ammonia (7-35) umol/L Troponin I High Sens (2.3-19.7) ng/L Triglycerides ( - 149) mg/dL TSH (0.34-5.60) uIU/mL Free T4 (0.58-1.64) ng/dL Nasal Screen MRSA (PCR) (NEGATIVE) Serum Ketones NEGATIVE NEGATIVE (NEGATIVE) 10/17/21 10/17/21 10/17/21 Range/Units 16:24 15:40 15:40 WBC (4.8-10.8) x10^3/uL RBC (4.70-6.10) 10^6/uL Hgb (14.0-18.0) g/dL Hct (42.0-52.0) % MCV (80.0-94.0) fL MCH (27.0-31.0) pg MCHC (32.0-36.0) g/dL RDW (12.0-15.0) % Plt Count (130-450) 10^3/uL MPV (7.4-11.4) fL Neut # (Auto) (1.5-6.6) 10^3/uL Lymph # (Auto) (1.5-3.5) 10^3/uL O'Brien # (Auto) (0.0-1.0) 10^3/uL Eos # (Auto) (0.0-0.7) 10^3/uL Baso # (Auto) (0.0-0.1) 10^3/uL Absolute Nucleated RBC x10^3/uL Band Neuts % (Manual) Abnorm Lymph % (Manual) Nucleated RBC % /100WBC Neutrophils # (Manual) Lymphocytes # (Manual) Monocytes # (Manual) Eosinophils # (Manual) Basophils # (Manual) Differential Comment Platelet Estimate (NORMAL) RBC Morph Micro Appear (NORMAL) VBG pH 7.533 H (7.31-7.41) VBG pCO2 31.2 L (41-51) mmHg VBG pO2 54.7 H (25-47) mmHg VBG HCO3 25.7 (23-28) mmol/L VBG Total CO2 26.6 (24-29) mmol/L VBG O2 Saturation 91.8 H (60-80) % VBG Base Excess 3.9 H (-2 - +2) mmol/L Sodium 149 H (135-145) mmol/L Potassium 4.3 (3.5-5.0) mmol/L Chloride 106 (101-111) mmol/L Carbon Dioxide 27 (21-32) mmol/L Anion Gap 16.0 H (6-13) BUN 32 H (6-20) mg/dL Creatinine 1.1 (0.6-1.2) mg/dL Estimated GFR (MDRD) 68 L (>89) Glucose 681 H* (70-100) mg/dL Calcium 13.5 H* (8.5-10.3) mg/dL Phosphorus (2.5-4.6) mg/dL Magnesium 2.1 (1.7-2.8) mg/dL Ammonia (7-35) umol/L Troponin I High Sens (2.3-19.7) ng/L Triglycerides ( - 149) mg/dL TSH (0.34-5.60) uIU/mL Free T4 (0.58-1.64) ng/dL Nasal Screen MRSA (PCR) NEGATIVE (NEGATIVE) Serum Ketones NEGATIVE (NEGATIVE) 10/17/21 Range/Units 15:40 WBC (4.8-10.8) x10^3/uL RBC (4.70-6.10) 10^6/uL Hgb (14.0-18.0) g/dL Hct (42.0-52.0) % MCV (80.0-94.0) fL MCH (27.0-31.0) pg MCHC (32.0-36.0) g/dL RDW (12.0-15.0) % Plt Count (130-450) 10^3/uL MPV (7.4-11.4) fL Neut # (Auto) (1.5-6.6) 10^3/uL Lymph # (Auto) (1.5-3.5) 10^3/uL O'Brien # (Auto) (0.0-1.0) 10^3/uL Eos # (Auto) (0.0-0.7) 10^3/uL Baso # (Auto) (0.0-0.1) 10^3/uL Absolute Nucleated RBC x10^3/uL Band Neuts % (Manual) Abnorm Lymph % (Manual) Nucleated RBC % /100WBC Neutrophils # (Manual) Lymphocytes # (Manual) Monocytes # (Manual) Eosinophils # (Manual) Basophils # (Manual) Differential Comment Platelet Estimate (NORMAL) RBC Morph Micro Appear (NORMAL) VBG pH (7.31-7.41) VBG pCO2 (41-51) mmHg VBG pO2 (25-47) mmHg VBG HCO3 (23-28) mmol/L VBG Total CO2 (24-29) mmol/L VBG O2 Saturation (60-80) % VBG Base Excess (-2 - +2) mmol/L Sodium (135-145) mmol/L Potassium (3.5-5.0) mmol/L Chloride (101-111) mmol/L Carbon Dioxide (21-32) mmol/L Anion Gap (6-13) BUN (6-20) mg/dL Creatinine (0.6-1.2) mg/dL Estimated GFR (MDRD) (>89) Glucose (70-100) mg/dL Calcium (8.5-10.3) mg/dL Phosphorus (2.5-4.6) mg/dL Magnesium (1.7-2.8) mg/dL Ammonia (7-35) umol/L Troponin I High Sens 621.2 H* (2.3-19.7) ng/L Triglycerides ( - 149) mg/dL TSH (0.34-5.60) uIU/mL Free T4 (0.58-1.64) ng/dL Nasal Screen MRSA (PCR) (NEGATIVE) Serum Ketones (NEGATIVE) Assessment/Plan - Problem List (1) Hyperosmolar hyperglycemic state (HHS) Impression: His hyperosmolar state has resolved: Glucose is 157, sodium is elevated but improving. Will stop his IV insulin drip, start Lantus twice daily and start a sliding scal e insulin. Continue with IV hydration, now giving free water (D5W) (2) Atrial fibrillation with RVR Conclusion/Plan: He has a Hx of Aib and may be tachycardic due to dehydration or from the fever Continue IV diltiazem drip Continue IV Lopressor pushes for rate control also His troponins have ruled him out for ACS as the cause of this A. fib. His TSH and T4 were checked for possible thyroid storm and are normal, ruling out hyperthyroidism. Would like to order an Echocardiogram however that services not available here until 3 days from now. He is on Apixaban normally and will continue this for stroke prophylaxis, since he can swallow (3) Hyperpyrexia Conclusion/Plan: The patient has basically been continuously with a high fever since admission. Today his fever is as high as 40.7 degrees C. The work up for infection has no obvious source found with a benign CXR and U/A, and neg blood cx to date. We will obtain a CT of the LS spine, since he has pain there and since there was to be work-up pending in several weeks, noted in EMR notes. If that is negative for abscess or other abnormality, we will proceed to an LP. Anesthesia for LP if necessary. As Pharmacy reconciles his meds, will also evaluate if any of his meds are causing hyperpyrexia, such as Serotonin syndrome for example. (4) Altered mental status Conclusion/Plan: He is still obtunded however there are spontaneous motions of his extremities, occasional answers by grunting and he can swallow thru a straw . The most likely etiology is his hyperosmolar state or the fever. He did undergo a head CT that showed microvascular changes but nothing acute to explain this level of obtundation. Will monitor in the ICU (5) Sepsis Conclusion/Plan: He has a fever, elevated WBC, tachycardia, new AMS thus he is septic. Etiology of his sepsis is not readily obvious. His neck is not stiff. He has been started on empiric antibiotics including IV cefepime, vancomycin and Flagyl and we will continue these. Await culture results. Monitor to determine if an obvious source of infection is found. If his neuro status remains abnormal, an LP will be ordered. (6) Diabetes mellitus type 2 in obese Conclusion/Plan: As per Hx. Details of his recent activity or noncompliance with medications are not known yet (7) Seizure disorder Conclusion/Plan: Will order his usual meds once reconciled
--- NOTE | 2021-10-18 15:21 | ED Physician Documentation ---
ED Addendum - Addendum Addendum: 10/18/21 15:[address] Hansen for lumbar puncture. I attempted lumbar puncture without success and notified Dr. Hansen that she may need to call anesthesia.
--- NOTE | 2021-10-18 16:20 | CONSULTATION NOTE ---
Consultation Report: Consulted by hospitalist for LP at the bedside. Unable to obtain informed consent due to pt's AMS and procedure deemed emergent by attending MD. Attempted LP in lateral position, unssucessful x2. With assistance of nursing staff pt positioned sitting. LP successful in sitting position and pt tolerated well. Approx 10 cc CSF total obtained in sterile fashion per LP kit vials 1-4. Samples sent to the lab per RN. Pt positioned supine post-procedure and care turned over to ICU staff. Assistance of the ICU staff very much appreciated. NAC.
[2021-10-18] MEDS: METOPROLOL 5 MG/5 ML VIAL IVP SCH ×2 (16:28→20:10)
[2021-10-18 16:31] LABS: CSF - GLUCOSE 149 mg/dL (45-70); TOTAL PROTEIN,CSF 87 mg/dL (15-45)
[2021-10-18 16:32] LABS: CLARITY,CSF CLEAR (CLEAR); COLOR,CSF COLORLESS (COLORLESS); CSF TUBE # CSF TUBE# 3; CSF XANTHOCHROMIA ABSENT (ABSENT); RED BLOOD CELL,CSF 2 /mm^3 (0-1); WHITE BLOOD CELL,CSF 1 /mm^3 (0-5)
[2021-10-18] MEDS ORDERED: INSULIN ASPART 300 UNIT/3 ML PEN SUBQ SCH (17:00)
[2021-10-18] MEDS: ACETAMINOPHEN 1,000 MG/100 ML 1,000 MG/100 ML BAG IV PRN ×2 (17:17→23:42)
[2021-10-18] MEDS: BUTALB/ACETAM/CAFF 50/325/40MG TABLET PO PRN (21:11)
[2021-10-18] MEDS: INSULIN GLARGINE 300 UNIT/3 ML PEN SUBQ SCH (21:14)
[2021-10-18] MEDS: INSULIN LISPRO 300 UNIT/3 ML PEN SUBQ SCH (21:15)
[2021-10-18] MEDS ORDERED: INSULIN LISPRO 300 UNIT/3 ML PEN SUBQ STA (22:30)
[2021-10-19] MEDS: SODIUM CHLORIDE FLUSH 0.9% 10 ML SYRINGE IVP SCH ×4 (02:32→19:47)
[2021-10-19] MEDS: METOPROLOL 5 MG/5 ML VIAL IVP SCH ×4 (02:32→19:59)
[2021-10-19] MEDS: metroNIDAZOLE 500 MG/100 ML 500 MG/100 ML BAG IV SCH ×3 (03:20→19:55)
[2021-10-19] MEDS: IBUPROFEN 600 MG TABLET PO PRN ×3 (03:20→21:07)
[2021-10-19] MEDS: SODIUM CHLORIDE FLUSH 0.9% 10 ML SYRINGE IVP PRN ×2 (04:47→19:47)
[2021-10-19 04:48] LABS: BASOPHILS % (AUTO) 0.3 %; EOSINOPHILS # (AUTO) 0.1 10^3/uL (0.0-0.7); EOSINOPHILS % (AUTO) 0.7 %; HCT - HEMATOCRIT 41.8 % (42.0-52.0); HGB - HEMOGLOBIN 13.6 g/dL (14.0-18.0); LYMPHOCYTES # (AUTO) 2.1 10^3/uL (1.5-3.5); LYMPHOCYTES % (AUTO) 17.9 %; MEAN CORPUSCULAR HEMOGLOBIN 34.3 pg (27.0-31.0); MEAN CORPUSCULAR HGB CONC 32.5 g/dL (32.0-36.0); MEAN CORPUSCULAR VOLUME 105.6 fL (80.0-94.0); MEAN PLATELET VOLUME 9.9 fL (7.4-11.4); MONOCYTES # (AUTO) 0.9 10^3/uL (0.0-1.0); MONOCYTES % (AUTO) 7.4 %; NEUTROPHILS # (AUTO) 8.4 10^3/uL (1.5-6.6); NEUTROPHILS % (AUTO) 72.9 %; NRBC ABSOLUTE COUNT (AUTO) 0.02 x10^3/uL; NUCLEATED RED BLOOD CELLS AUTO 0.2 /100WBC; PLT - PLATELET COUNT 123 10^3/uL (130-450); RED BLOOD COUNT 3.96 10^6/uL (4.70-6.10); RED CELL DISTRIBUTION WIDTH 13.7 % (12.0-15.0); WHITE BLOOD COUNT 11.5 x10^3/uL (4.8-10.8)
[2021-10-19 05:13] LABS: CALCIUM 9.9 mg/dL (8.5-10.3); PHOSPHORUS 3.4 mg/dL (2.5-4.6)
[2021-10-19 05:23] LABS: CALCIUM, IONIZED 1.28 mmol/L (1.15-1.33); VBG PH 7.357 (7.31-7.41)
[2021-10-19] MEDS: VANCOMYCIN INJ 1.75 GM in SODIUM CHLORIDE 0.9% 500 ML IV SCH ×2 (06:35→17:52)
[2021-10-19] MEDS: FUROSEMIDE 20 MG/2 ML VIAL IVP SCH ×2 (06:35→14:36)
[2021-10-19] MEDS: ZINC OXIDE 20% OINT 30 GM TUBE TOP PRN (06:36)
[2021-10-19] MEDS: ACETAMINOPHEN 1,000 MG/100 ML 1,000 MG/100 ML BAG IV PRN ×2 (06:36→17:51)
[2021-10-19] MEDS: DEXTROSE 5% 1,000 ML IV SCH ×2 (06:44→12:16)
[2021-10-19] MEDS: NS W/20 MEQ KCL 1,000 ML IV SCH (06:45)
[2021-10-19] MEDS: INSULIN LISPRO 300 UNIT/3 ML PEN SUBQ SCH ×4 (08:10→21:14)
[2021-10-19] MEDS: FLUCONAZOLE 200 MG/100 ML 100 ML IV SCH (08:20)
[2021-10-19] MEDS: CEFEPIME 2 GM in SODIUM CHLORIDE 0.9% MINIBAG 100 ML IV SCH ×2 (08:20→21:05)
[2021-10-19] MEDS: APIXABAN 5 MG TABLET PO SCH ×2 (08:21→21:06)
[2021-10-19] MEDS: carBAMazepine ER 200 MG TABLET PO SCH ×2 (08:21→21:06)
[2021-10-19] MEDS: FAMOTIDINE 20 MG TABLET PO SCH ×2 (08:22→21:07)
[2021-10-19] MEDS: ENOXAPARIN 40 MG/0.4 ML SYRINGE SUBQ SCH (08:22)
[2021-10-19] MEDS: METOPROLOL SUCCINATE 50 MG TABLET PO SCH (08:22)
[2021-10-19] MEDS: diltiaZEM INJ 125 MG in DEXTROSE 5% 100 ML IV SCH (08:59)
[2021-10-19] MEDS: INSULIN GLARGINE 300 UNIT/3 ML PEN SUBQ SCH ×2 (09:00→21:13)
[2021-10-19] MEDS: HYDROmorphone 0.5 MG/0.5 ML SYRINGE IVP PRN ×2 (11:58→20:39)
[2021-10-19 12:39] LABS: CALCIUM 9.7 mg/dL (8.5-10.3); CREATININE 0.7 mg/dL (0.6-1.2); POTASSIUM 4.5 mmol/L (3.5-5.0)
--- NOTE | 2021-10-19 18:42 | PROVIDER PROGRESS NOTE ---
Objective - Vital Signs/Intake & Output Reviewed Vital Signs: Yes Vital Signs: Vital Signs Temp Pulse Resp BP Pulse Ox 10/19/21 18:00 38.3 C H 95 18 117/84 H 97 10/19/21 17:00 38.5 C H 89 20 91/63 98 10/19/21 16:00 38.6 C H 96 13 95/70 99 10/19/21 15:00 38.5 C H 90 21 119/58 L 98 Intake & Output: Intake & Output 10/16/21 10/17/21 10/18/21 10/19/21 23:59 23:59 23:59 23:59 Intake Total 4942.362 4680.666 2762.249 Output Total 2900 2070 2302 Balance 2042.362 2610.666 460.249 - Objective General Appearance: positive: Lethargic, Other (Sleeping upright in a recliner, just got narcotic pain meds. 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.) Eyes Bilateral: positive: Normal inspection, No lid inflammation ENT: positive: No signs of dehydration Neck: positive: Nml inspection, No JVD - Lab Results Fish Bones: 10/19/21 04:39 10/19/21 12:20 Other Labs: Lab Results x24hrs 10/19/21 10/19/21 10/19/21 Range/Units 12:20 04:39 04:39 WBC 11.5 H (4.8-10.8) x10^3/uL RBC 3.96 L (4.70-6.10) 10^6/uL Hgb 13.6 L (14.0-18.0) g/dL Hct 41.8 L (42.0-52.0) % MCV 105.6 H (80.0-94.0) fL MCH 34.3 H (27.0-31.0) pg MCHC 32.5 (32.0-36.0) g/dL RDW 13.7 (12.0-15.0) % Plt Count 123 L (130-450) 10^3/uL MPV 9.9 (7.4-11.4) fL Neut # (Auto) 8.4 H (1.5-6.6) 10^3/uL Lymph # (Auto) 2.1 (1.5-3.5) 10^3/uL [place] # (Auto) 0.9 (0.0-1.0) 10^3/uL Eos # (Auto) 0.1 (0.0-0.7) 10^3/uL Baso # (Auto) 0.0 (0.0-0.1) 10^3/uL Absolute Nucleated RBC 0.02 x10^3/uL Nucleated RBC % 0.2 /100WBC VBG pH (7.31-7.41) Ionized Calcium (1.15-1.33) mmol/L Sodium 150 H (135-145) mmol/L Potassium 4.5 (3.5-5.0) mmol/L Chloride 114 H (101-111) mmol/L Carbon Dioxide 31 (21-32) mmol/L Anion Gap 5.0 L (6-13) BUN 35 H (6-20) mg/dL Creatinine 0.7 (0.6-1.2) mg/dL Estimated GFR (MDRD) 115 (>89) Glucose 383 H (70-100) mg/dL Calcium 9.7 (8.5-10.3) mg/dL Phosphorus (2.5-4.6) mg/dL Magnesium (1.7-2.8) mg/dL Ammonia (7-35) umol/L Last Dose Date 10-18-21 Last Dose Time 0600 Vancomycin Trough 20.0 (10.0-20.0) ug/mL 10/19/21 10/19/21 10/19/21 Range/Units 04:39 04:39 04:39 WBC (4.8-10.8) x10^3/uL RBC (4.70-6.10) 10^6/uL Hgb (14.0-18.0) g/dL Hct (42.0-52.0) % MCV (80.0-94.0) fL MCH (27.0-31.0) pg MCHC (32.0-36.0) g/dL RDW (12.0-15.0) % Plt Count (130-450) 10^3/uL MPV (7.4-11.4) fL Neut # (Auto) (1.5-6.6) 10^3/uL Lymph # (Auto) (1.5-3.5) 10^3/uL [place] # (Auto) (0.0-1.0) 10^3/uL Eos # (Auto) (0.0-0.7) 10^3/uL Baso # (Auto) (0.0-0.1) 10^3/uL Absolute Nucleated RBC x10^3/uL Nucleated RBC % /100WBC VBG pH 7.357 (7.31-7.41) Ionized Calcium 1.28 (1.15-1.33) mmol/L Sodium (135-145) mmol/L Potassium 4.0 (3.5-5.0) mmol/L Chloride (101-111) mmol/L Carbon Dioxide (21-32) mmol/L Anion Gap (6-13) BUN (6-20) mg/dL Creatinine (0.6-1.2) mg/dL Estimated GFR (MDRD) (>89) Glucose (70-100) mg/dL Calcium 9.9 (8.5-10.3) mg/dL Phosphorus 3.4 (2.5-4.6) mg/dL Magnesium 2.0 (1.7-2.8) mg/dL Ammonia 26.1 (7-35) umol/L Last Dose Date Last Dose Time Vancomycin Trough (10.0-20.0) ug/mL Assessment/Plan - Problem List (1) Hyperpyrexia Impression: The patient has basically been continuously with a fever since admission. Today he has a low-grade fever, yesterday fever was as high as 40.7 degrees C. The work up for infection has no obvious source found with a benign CXR and U/A, and neg blood cx to date. CT of the LS spine showed no evidence of abscess. Yesterday he had an LP and the prelim labs did not appear consistent with a bacterial meningitis. The LP cx is pending. We will also evaluate if any of his meds are causing hyperpyrexia, like Serotonin syndrome. We will obtain an abdomen/pelvis CT to evaluate for possible source of infection there, since that was not done at admission. We will also order RF, SPEP, CK, LIBBY, and follow ESR and CRP daily He is getting Motrin, affirmative and Tylenol to bring down his fever as well as cold paks on his skin (2) Atrial fibrillation with RVR Conclusion/Plan: He has a Hx of Aib and may be tachycardic due to dehydration or from the fever Continue IV diltiazem drip Contimnue IV Lopressor pushes for rate control. His troponins have ruled him out for ACS as the cause of this A. fib. His TSH and T4 were checked for possibbble thyroid storm and are normal, ruling out hyperthyroidism. Would like to order an Echocardiogram however that services not available here until 2 days from now. he is on Apixian and will continue this for stroke prophylaxis, since he awakens enough to swallow (3) Altered mental status Conclusion/Plan: He is still obtunded however there are spontaneous motions of his extremities and also fist clenching, and he moans with responses. The most likely etiology is his febrile state. He did undergo a head CT that showed microvascular changes but nothing acute to explain this level of obtundation. Will monitor in the ICU (4) Sepsis Conclusion/Plan: He has a fever, elevated WBC, tachycardia, new AMS thus we think he is septic. Etiology of his sepsis is not readily obvious. His neck is not stiff. He has been started on empiric antibiotics including IV cefepime, vancomycin and Flagyl and we will continue these. Await culture results. Monitor to determine if an obvious source of infection is found. If his neuro status remains abnormal, an LP will be ordered. (5) Diabetes mellitus type 2 in obese Conclusion/Plan: As per Hx. Details of his recent activity or noncompliance with medications are not known yet (6) Seizure disorder Conclusion/Plan: Will order his usual meds once reconciled (7) Chronic LBP Conclusion/Plan: His brother spoke to the RN today and gave important past medical history that the patient never sleeps supine in bed, he has severe back pain and needs to sleep bent, in a chair or recliner. Once he was transferred to a chair he started sleeping immediately this morning, and was no longer fidgety or clenching hands and feet. Will keep in recliner, monitor and give pain meds as deemed necessary. (8) Hyperosmolar hyperglycemic state (HHS) Conclusion/Plan: His hyperosmolar state has resolved: Glucose is 157, sodium is elevated but improving. We have stopped his IV insulin drip, started Lantus twice daily and start a sliding scale insulin. Continue with IV hydration, now giving free water (D5W)
--- NOTE | 2021-10-19 20:07 | CT Report ---
PROCEDURE: Abdomen/Pelvis WO INDICATIONS: Fever of unknown origin. TECHNIQUE: Noncontrast 5 mm thick sections acquired from the diaphragms to the symphysis. 5 mm coronal and sagi ttal reformats were then performed. For radiation dose reduction, the following was used: automated exposure control, adjustment of mA and/or kV according to patient size. COMPARISON: None. FINDINGS: Bilateral posterior dependent atelectasis, right greater than left. No visible pleural effusion. Unremarkable unenhanced CT appearance of the liver, gallbladder, and pancreas. Nonobstructing bilater al renal calculi with no findings of hydroureteronephrosis. Mild splenomegaly. No abnormally dilated or thickened loop of bowel. Appendix is normal. Moderate volume of formed stool in the colon. No pericolonic or mesenteric inflammatory changes. No free air or free fluid. Urinary bladder decompressed around a Leigh balloon. No structural or large intra-abdominal, right peroneal, pelvic, or inguinal lymph nodes appear grossl y unremarkable unenhanced aorta other than atherosclerotic calcifications. No acute or suspicious osseous lesion. IMPRESSION: No acute finding. Reviewed by: Tobias Ruiz MD on 10/19/2021 8:05 PM PDT Approved by: Tobias Ruiz MD on 10/19/2021 8:05 PM PDT Station ID: [id number]
[2021-10-19 20:10] LABS: CALCIUM 9.9 mg/dL (8.5-10.3); CREATININE 0.7 mg/dL (0.6-1.2); POTASSIUM 3.9 mmol/L (3.5-5.0)
[2021-10-19 20:29] LABS: CK- CREATINE KINASE 328 IU/L (22-269)
[2021-10-19 20:35] LABS: HIV RAPID SCREEN NEGATIVE (NEGATIVE)
[2021-10-19 20:41] LABS: CRP - C-REACTIVE PROTEIN < 1.0 mg/dL (0-1.0)
[2021-10-19] MEDS ORDERED: POTASSIUM CHLOR 20 MEQ/100 ML 20 MEQ/100 ML BAG IV ONE (21:00)
[2021-10-20] MEDS: ACETAMINOPHEN 1,000 MG/100 ML 1,000 MG/100 ML BAG IV PRN ×2 (00:21→11:16)
[2021-10-20] MEDS: DEXTROSE 5% 1,000 ML IV SCH ×2 (01:42→18:38)
[2021-10-20] MEDS: METOPROLOL 5 MG/5 ML VIAL IVP SCH (02:00)
[2021-10-20] MEDS: metroNIDAZOLE 500 MG/100 ML 500 MG/100 ML BAG IV SCH ×3 (04:26→19:49)
[2021-10-20] MEDS: SODIUM CHLORIDE FLUSH 0.9% 10 ML SYRINGE IVP PRN ×4 (04:27→21:34)
[2021-10-20 04:31] LABS: CALCIUM, IONIZED 1.31 mmol/L (1.15-1.33); VBG PH 7.363 (7.31-7.41)
[2021-10-20 04:52] LABS: BUN - BLOOD UREA NITROGEN 39 mg/dL (6-20); CALCIUM 9.8 mg/dL (8.5-10.3); CARBON DIOXIDE - CO2 29 mmol/L (21-32); CHLORIDE 114 mmol/L (101-111); CK- CREATINE KINASE 276 IU/L (22-269); CREATININE 0.6 mg/dL (0.6-1.2); GFR - MDRD 137 (>89); GLUCOSE 209 mg/dL (70-100); PHOSPHORUS 2.9 mg/dL (2.5-4.6); POTASSIUM 4.3 mmol/L (3.5-5.0); SODIUM 150 mmol/L (135-145)
[2021-10-20 04:56] LABS: CRP - C-REACTIVE PROTEIN < 1.0 mg/dL (0-1.0)
[2021-10-20] MEDS: VANCOMYCIN INJ 1.75 GM in SODIUM CHLORIDE 0.9% 500 ML IV SCH (05:52)
[2021-10-20] MEDS: FUROSEMIDE 20 MG/2 ML VIAL IVP SCH ×2 (05:52→13:52)
--- NOTE | 2021-10-20 07:45 | PROVIDER PROGRESS NOTE ---
Subjective - Subjective Pt reports feeling: Improved (He is not thrashing, is awake, is tearful, speaking to 2 brothers at his bedside, falls asleep easily) Subjective: His RN reports he was able to eat and drink Objective - Vital Signs/Intake & Output Vital Signs: Vital Signs Temp Pulse Resp BP Pulse Ox 10/20/21 07:00 37.4 C 88 22 138/84 H 100 10/20/21 06:00 37.5 C 83 17 140/84 H 100 10/20/21 05:00 37.5 C 83 17 130/78 97 10/20/21 04:00 89 21 97/76 97 Intake & Output: Intake & Output 10/17/21 10/18/21 10/19/21 10/20/21 23:59 23:59 23:59 23:59 Intake Total 4942.362 4680.666 3832.249 805.713 Output Total 2900 2070 2487 245 Balance 2042.362 2610.666 1345.249 560.713 - Objective General Appearance: positive: Moderate distress (from back pain, he reports), Other (Abnormal cranial shape) Eyes Bilateral: positive: Normal inspection ENT: positive: ENT inspection nml, No signs of dehydration Neck: positive: Nml inspection, No JVD Respiratory: positive: No respiratory distress, Breath sounds nml Cardiovascular: positive: Regular rate & rhythm, No murmur Abdomen: positive: Non-tender, Nml bowel sounds, No distention Skin: positive: Warm, Dry Extremities: positive: Non-tender, No pedal edema Neurologic/Psychiatric: positive: Disoriented to place (He recognizes 2 brothers at bedside, is speaking in short sentences, is tearful due to confusion and due to pain in low back), Disoriented to time - Lab Results Fish Bones: 10/21/21 04:30 10/21/21 04:30 Other Labs: Lab Results x24hrs 10/20/21 10/20/21 10/20/21 Range/Units 04:19 04:19 04:19 ESR 37 H (0-20) mm/Hr VBG pH 7.363 (7.31-7.41) Ionized Calcium 1.31 (1.15-1.33) mmol/L Sodium 150 H (135-145) mmol/L Potassium 4.3 (3.5-5.0) mmol/L Chloride 114 H (101-111) mmol/L Carbon Dioxide 29 (21-32) mmol/L Anion Gap 7.0 (6-13) BUN 39 H (6-20) mg/dL Creatinine 0.6 (0.6-1.2) mg/dL Estimated GFR (MDRD) 137 (>89) Glucose 209 H (70-100) mg/dL Calcium 9.8 (8.5-10.3) mg/dL Phosphorus 2.9 (2.5-4.6) mg/dL Magnesium 2.0 (1.7-2.8) mg/dL Ammonia (7-35) umol/L Total Creatine Kinase 276 H (22-269) IU/L C-Reactive Protein < 1.0 (0-1.0) mg/dL HIV 1&2 Antibody Rapid (NEGATIVE) 10/20/21 10/19/21 10/19/21 Range/Units 04:19 19:50 19:50 ESR 49 H (0-20) mm/Hr VBG pH (7.31-7.41) Ionized Calcium (1.15-1.33) mmol/L Sodium (135-145) mmol/L Potassium (3.5-5.0) mmol/L Chloride (101-111) mmol/L Carbon Dioxide (21-32) mmol/L Anion Gap (6-13) BUN (6-20) mg/dL Creatinine (0.6-1.2) mg/dL Estimated GFR (MDRD) (>89) Glucose (70-100) mg/dL Calcium (8.5-10.3) mg/dL Phosphorus (2.5-4.6) mg/dL Magnesium (1.7-2.8) mg/dL Ammonia 30.1 (7-35) umol/L Total Creatine Kinase (22-269) IU/L C-Reactive Protein (0-1.0) mg/dL HIV 1&2 Antibody Rapid NEGATIVE (NEGATIVE) 10/19/21 10/19/21 10/19/21 Range/Units 19:50 19:50 12:20 ESR (0-20) mm/Hr VBG pH (7.31-7.41) Ionized Calcium (1.15-1.33) mmol/L Sodium 151 H 150 H (135-145) mmol/L Potassium 3.9 4.5 (3.5-5.0) mmol/L Chloride 113 H 114 H (101-111) mmol/L Carbon Dioxide 32 31 (21-32) mmol/L Anion Gap 6.0 5.0 L (6-13) BUN 36 H 35 H (6-20) mg/dL Creatinine 0.7 0.7 (0.6-1.2) mg/dL Estimated GFR (MDRD) 115 115 (>89) Glucose 162 H 383 H (70-100) mg/dL Calcium 9.9 9.7 (8.5-10.3) mg/dL Phosphorus (2.5-4.6) mg/dL Magnesium (1.7-2.8) mg/dL Ammonia (7-35) umol/L Total Creatine Kinase 328 H (22-269) IU/L C-Reactive Protein < 1.0 (0-1.0) mg/dL HIV 1&2 Antibody Rapid (NEGATIVE) Assessment/Plan - Problem List (1) FUO (fever of unknown origin) Impression: The patient has basically had a fever since admission until today when he has a normal temp. The fever has been as high as 40.7 degrees C. The work up for infection has found no obvious source with a benign CXR and U/A, and neg blood cx to date. CT of chest was neg. CT of the LS spine showed no evidence of abscess, and then he had an LP and the prelim labs did not appear consistent wit h a bacterial meningitis. CT of abd/pelvis was also done empirically yesterday and also showed no source for an infection. He does not appear to be on any meds that could cause hyperpyrexia, like Sero tonin syndrome. We also ordered RF, SPEP, CK, LIBBY, and following ESR and CRP daily He is getting Motrin, Ofirmev or po Tylenol to bring down his fever as well as had cold paks on his skin. He is on broad spectrum 3 antibiotics plus antifungal empirically. I spoke to the brother Edmond at bedside and updated him on all the above today. (2) Atrial fibrillation with RVR Conclusion/Plan: He has a Hx of Aib and was likely tachycardic due to dehydration, pain and from the prolonged fever. His troponins have ruled him out for ACS as the cause of this A. fib. His TSH and T4 were checked for possibbble thyroid storm and are normal, ruling out hyperthyroidism. Continuing IV diltiazem drip and IV Lopressor pushes and will transition soon to oral HR-slowing med. Will plan to get an Echocardiogram looking for endocarditis, however I do not hear a murmur. (Echo service has not been here since he was admitted, Echo is only here -, today is Mon). He is able to swallow his Apixban, since he was awakening enough to swallow, and will continue this for stroke prophylaxis (3) Altered mental status Conclusion/Plan: He is awakening today, and for the last 2 days was able to swallow liquids and meds. The most likely etiology of his AMS is his febrile state. He did undergo a head CT that showed microvascular changes but nothing acute to explain the level of obtundation that he had for about 3 days. Continue monitor in the ICU. Will order a cancel on upper extremity soft restraints now that he is mre awake and cooperating/conversing. (4) Sepsis Conclusion/Plan: He has had a fever, elevated WBC, tachycardia, new AMS thus we think he is septic. Etiology of his sepsis is not readily obvious. His neck is not stiff. He has been started on empiric antibiotics including IV cefepime, vancomycin and Flagyl and empiric antifungal Diflucan. Await culture results. Monitor to determine if an obvious source of infection is found. (5) Diabetes mellitus type 2 in obese Conclusion/Plan: As per Hx. Details of his recent activity or noncompliance with medications are not known yet (6) Seizure disorder Conclusion/Plan: We restarted his usual meds (7) Chronic LBP Conclusion/Plan: His brother spoke to the RN yesterday and gave important past medical history that the patient never sleeps supine in bed, because he has severe back pain and needs to sleep in a chair or recliner. Once he was transferred to a chair he started sleeping immediately yesterday, and appeared comfortable, was no longer fidgety or clenching hands and feet. Will keep in recliner as much as possible, monitor and give pain meds as deemed necessary. (8) Hyperosmolar hyperglycemic state (HHS) Conclusion/Plan: His hyperglycemic state has resolved: Glucose is 150-200's, sodium is elevated but improving. We have stopped his IV insulin drip, started Lantus twice daily and start a sliding scale insulin. Continue with IV hydration, now giving free water (D5W) (9) Hypernatremia Conclusion/Plan: Related to volume depletion. Continue with IV hydration, now giving free water (D5W)
[2021-10-20] MEDS ORDERED: METOPROLOL 5 MG/5 ML VIAL IVP PRN (07:55)
[2021-10-20] MEDS: APIXABAN 5 MG TABLET PO SCH ×2 (08:23→20:42)
[2021-10-20] MEDS: FAMOTIDINE 20 MG TABLET PO SCH ×2 (08:23→20:44)
[2021-10-20] MEDS: METOPROLOL SUCCINATE 50 MG TABLET PO SCH (08:24)
[2021-10-20] MEDS: carBAMazepine ER 200 MG TABLET PO SCH ×2 (08:25→20:44)
[2021-10-20] MEDS: ENOXAPARIN 40 MG/0.4 ML SYRINGE SUBQ SCH (08:26)
[2021-10-20] MEDS: CEFEPIME 2 GM in SODIUM CHLORIDE 0.9% MINIBAG 100 ML IV SCH ×2 (08:30→21:07)
[2021-10-20] MEDS: INSULIN GLARGINE 300 UNIT/3 ML PEN SUBQ SCH ×2 (08:34→20:41)
[2021-10-20] MEDS: INSULIN LISPRO 300 UNIT/3 ML PEN SUBQ SCH ×4 (08:35→20:40)
[2021-10-20] MEDS: SODIUM CHLORIDE FLUSH 0.9% 10 ML SYRINGE IVP SCH ×2 (08:37→16:50)
[2021-10-20] MEDS: FLUCONAZOLE 200 MG/100 ML 100 ML IV SCH (09:09)
[2021-10-20] MEDS: IBUPROFEN 600 MG TABLET PO PRN ×2 (09:10→16:17)
[2021-10-20] MEDS: SENNA 8.6 MG TABLET PO SCH (09:56)
[2021-10-20] MEDS: DOCUSATE SODIUM 250 MG CAPSULE PO SCH (09:56)
[2021-10-20] MEDS: polyethylene glycoL 3350 17 GM PACKET PO SCH (09:56)
[2021-10-20] MEDS: diltiaZEM INJ 125 MG in DEXTROSE 5% 100 ML IV SCH (11:09)
[2021-10-20 11:21] LABS: RHEUMATOID FACTOR NEGATIVE (Negative)
[2021-10-20 12:09] LABS: CALCIUM 9.7 mg/dL (8.5-10.3); CREATININE 0.6 mg/dL (0.6-1.2); POTASSIUM 3.9 mmol/L (3.5-5.0)
[2021-10-20 17:09] LABS: VANCOMYCIN,TROUGH 22.9 ug/mL (10.0-20.0)
[2021-10-20] MEDS: BUTALB/ACETAM/CAFF 50/325/40MG TABLET PO PRN (17:28)
[2021-10-20] MEDS ORDERED: SODIUM CHLORIDE 0.9% 500 ML IV PRN (19:50)
[2021-10-20] MEDS ORDERED: SODIUM CHLORIDE 0.9% 500 ML IV ONE (19:53)
[2021-10-20] MEDS: HYDROmorphone 0.5 MG/0.5 ML SYRINGE IVP PRN (20:44)
[2021-10-20 21:42] LABS: BASOPHILS % (AUTO) 0.4 %; EOSINOPHILS # (AUTO) 0.3 10^3/uL (0.0-0.7); HCT - HEMATOCRIT 35.4 % (42.0-52.0); HGB - HEMOGLOBIN 11.3 g/dL (14.0-18.0); LYMPHOCYTES # (AUTO) 1.2 10^3/uL (1.5-3.5); LYMPHOCYTES % (AUTO) 24.8 %; MEAN CORPUSCULAR HEMOGLOBIN 34.5 pg (27.0-31.0); MEAN CORPUSCULAR HGB CONC 31.9 g/dL (32.0-36.0); MEAN CORPUSCULAR VOLUME 107.9 fL (80.0-94.0); MEAN PLATELET VOLUME 10.1 fL (7.4-11.4); MONOCYTES # (AUTO) 0.3 10^3/uL (0.0-1.0); MONOCYTES % (AUTO) 5.3 %; NEUTROPHILS % (AUTO) 63.3 %; PLT - PLATELET COUNT 76 10^3/uL (130-450); RED BLOOD COUNT 3.28 10^6/uL (4.70-6.10); WHITE BLOOD COUNT 4.7 x10^3/uL (4.8-10.8)
[2021-10-20 21:49] LABS: CALCIUM 9.4 mg/dL (8.5-10.3); CREATININE 0.5 mg/dL (0.6-1.2); POTASSIUM 3.4 mmol/L (3.5-5.0)
[2021-10-20] MEDS: POTASSIUM CHLORIDE 20 MEQ TABLET PO SCH (23:08)
[2021-10-21] MEDS: SODIUM CHLORIDE FLUSH 0.9% 10 ML SYRINGE IVP SCH ×3 (00:32→16:46)
[2021-10-21] MEDS: IBUPROFEN 600 MG TABLET PO PRN (00:32)
[2021-10-21] MEDS: POTASSIUM CHLORIDE 20 MEQ TABLET PO SCH (00:32)
[2021-10-21] MEDS: DEXTROSE 5% 1,000 ML IV SCH ×2 (01:36→12:00)
[2021-10-21] MEDS: ACETAMINOPHEN 1,000 MG/100 ML 1,000 MG/100 ML BAG IV PRN (01:38)
[2021-10-21] MEDS: HYDROmorphone 0.5 MG/0.5 ML SYRINGE IVP PRN ×2 (02:53→12:10)
[2021-10-21] MEDS: metroNIDAZOLE 500 MG/100 ML 500 MG/100 ML BAG IV SCH ×3 (04:35→20:03)
[2021-10-21] MEDS: SODIUM CHLORIDE FLUSH 0.9% 10 ML SYRINGE IVP PRN (04:36)
[2021-10-21 04:54] LABS: BASOPHILS % (AUTO) 0.2 %; EOSINOPHILS # (AUTO) 0.2 10^3/uL (0.0-0.7); EOSINOPHILS % (AUTO) 5.1 %; HGB - HEMOGLOBIN 11.8 g/dL (14.0-18.0); LYMPHOCYTES # (AUTO) 1.2 10^3/uL (1.5-3.5); LYMPHOCYTES % (AUTO) 25.5 %; MEAN CORPUSCULAR HEMOGLOBIN 35.3 pg (27.0-31.0); MEAN CORPUSCULAR HGB CONC 33.7 g/dL (32.0-36.0); MEAN CORPUSCULAR VOLUME 104.8 fL (80.0-94.0); MEAN PLATELET VOLUME 10.1 fL (7.4-11.4); MONOCYTES # (AUTO) 0.3 10^3/uL (0.0-1.0); MONOCYTES % (AUTO) 5.5 %; NEUTROPHILS % (AUTO) 63.3 %; PLT - PLATELET COUNT 82 10^3/uL (130-450); RED BLOOD COUNT 3.34 10^6/uL (4.70-6.10); WHITE BLOOD COUNT 4.8 x10^3/uL (4.8-10.8)
[2021-10-21 04:59] LABS: CALCIUM, IONIZED 1.25 mmol/L (1.15-1.33); VBG PH 7.417 (7.31-7.41)
[2021-10-21 05:04] LABS: MAGNESIUM 1.7 mg/dL (1.7-2.8); PHOSPHORUS 2.3 mg/dL (2.5-4.6)
[2021-10-21] MEDS ORDERED: MAGNESIUM OXIDE 400 MG TABLET PO ONE (06:00)
[2021-10-21] MEDS: NEUTRA-PHOS 250 MG TABLET PO SCH ×2 (06:37→08:37)
[2021-10-21] MEDS: polyethylene glycoL 3350 17 GM PACKET PO SCH (08:36)
[2021-10-21] MEDS: INSULIN LISPRO 300 UNIT/3 ML PEN SUBQ SCH ×4 (08:36→21:27)
[2021-10-21] MEDS: SENNA 8.6 MG TABLET PO SCH (08:37)
[2021-10-21] MEDS: METOPROLOL SUCCINATE 50 MG TABLET PO SCH (08:38)
[2021-10-21] MEDS: FAMOTIDINE 20 MG TABLET PO SCH ×2 (08:39→21:24)
[2021-10-21] MEDS: DOCUSATE SODIUM 250 MG CAPSULE PO SCH (08:39)
[2021-10-21] MEDS: carBAMazepine ER 200 MG TABLET PO SCH ×2 (08:41→21:25)
[2021-10-21] MEDS ORDERED: diltiaZEM CD 120 MG CAPSULE PO SCH (09:00)
[2021-10-21] MEDS: APIXABAN 5 MG TABLET PO SCH ×2 (09:57→21:24)
[2021-10-21] MEDS: INSULIN GLARGINE 300 UNIT/3 ML PEN SUBQ SCH ×2 (10:04→21:26)
[2021-10-21] MEDS: FUROSEMIDE 20 MG/2 ML VIAL IVP SCH ×2 (12:00→13:46)
--- NOTE | 2021-10-21 12:03 | XRAY Report ---
PROCEDURE: Chest for Line Placement INDICATIONS: PICC Line Placement TECHNIQUE: One view of the chest was acquired. COMPARISON: No pertinent prior study FINDINGS: Right upper extremity PICC is curled within the central venous vasculature, likely within the SVC. Re commend repositioning. No pneumothorax. Low lung volumes. IMPRESSION: Repositioning of PICC recommended. Reviewed by: Tobias Ruiz MD on 10/21/2021 12:01 PM PDT Approved by: Tobias Ruiz MD on 10/21/2021 12:01 PM PDT Station ID: [id number]
[2021-10-21] MEDS: CEFEPIME 2 GM in SODIUM CHLORIDE 0.9% MINIBAG 100 ML IV SCH ×2 (12:08→21:21)
[2021-10-21] MEDS: FLUCONAZOLE 200 MG/100 ML 100 ML IV SCH (12:13)
--- NOTE | 2021-10-21 12:23 | ANESTHESIA PROCEDURE NOTE ---
Anesth Central Line Template - Central Line Central Line Preparation: Consent Obtained, Time out completed, Ultrasound used, Sterile prep and drape Central line location: Right Basilic Central line type: PICC Double Lumen Central line catheter tip site resides: Superior vena cava (SVC) Central line aftercare: Secured (sutured), Placement confirmed, No pneumothorax, No complications, Bundle checklist complete, Pt tolerated well
[2021-10-21] MEDS ORDERED: VANCOMYCIN IV SCH (13:00)
[2021-10-21] MEDS ORDERED: VANCOMYCIN INJ 1.5 GM in SODIUM CHLORIDE 0.9% 500 ML IV SCH (13:00)
[2021-10-21] MEDS ORDERED: SODIUM CHLORIDE 0.9% IV SCH (13:00)
[2021-10-21] MEDS ORDERED: VANCOMYCIN INJ 1 GM, VANCOMYCIN INJ 500 MG in SODIUM CHLORIDE 0.9% 500 ML IV SCH ×2 (13:00→14:00)
[2021-10-21] MEDS ORDERED: AMIODARONE 360 MG/200 ML 200 ML IV ONE (13:14)
[2021-10-21] MEDS ORDERED: AMIODARONE 150 MG/100 ML 100 ML IV ONE (13:14)
[2021-10-21] MEDS: VANCOMYCIN INJ 1 GM, VANCOMYCIN INJ 500 MG in SODIUM CHLORIDE 0.9% 500 ML IV SCH ×2 (15:12→22:53)
[2021-10-21] MEDS ORDERED: MAGNESIUM HYDROXIDE 2,400 MG/30 ML UDC PO ONE (16:14)
[2021-10-21 17:08] LABS: ANTI-DNA (DS) AB QN <1 IU/mL (0-9); CENTROMERE B ANTIBODIES <0.2 AI (0.0-0.9); CHROMATIN ANTIBODIES <0.2 AI (0.0-0.9); JO-1 AB <0.2 AI (0.0-0.9); RIBOSOMAL P ANTIBODIES <0.2 AI (0.0-0.9); RNP ANTIBODIES 0.3 AI (0.0-0.9); SCLERODERMA-70 ANTIBODIES <0.2 AI (0.0-0.9); SJOGREN'S ANTI-SS-A <0.2 AI (0.0-0.9); SJOGREN'S ANTI-SS-B <0.2 AI (0.0-0.9); SMITH ANTIBODIES <0.2 AI (0.0-0.9); SMITH/RNP ANTIBODIES <0.2 AI (0.0-0.9)
--- NOTE | 2021-10-21 18:28 | PROVIDER PROGRESS NOTE ---
Progress Note October 21, 2021 6:22 PM Mr. Cruz has had a day. He pulled out his central line. Suddenly had a PICC line placed by anesthesia. This afternoon he is pulled out the PICC line 5 cm. We have done a stat chest x-ray and he still in the IVC so the line can be used. I have stopped his Lovenox. He was going in and out of atrial fibrillation. E KG did not confirm NM. Troponins were negative. He is currently in sinus rhythm. When he went into an atrial fibrillation third time I started him on amiodarone drip to load him. He has not had a fever for 24 hours. He is on Flagyl, Diflucan, cefepime, and vancomycin for fever of unknown origin. Blood cultures have been negative on October 17 and October 18. CSF culture was also negative. The CSF was clear, colorless. 1 white cell, 2 red cells, glucose 149, total protein 87. Total protein is high. Head CT is negative for hemorrhage or mass-effect. He has atrophy and chronic ischemic changes. Chest x-ray is negative for pneumonia. Chest CT was done looking for source of infection and he has no evidence of acute injury. On the lower cuts you have incidental nonobstructive renal calc elia and right adrenal adenoma. Because he had back pain lumbar spine CT was done and other than multilevel degenerative changes nothing else was seen. Abdomen pelvis CT was done, again looking for source of fever, and there is no acute findings. He has some mild atelectasis but no nephritis, colitis or structural abnormalities. The patient finally responded to getting Diflucan added most recently. Active Medications Acetaminophen (Acetaminophen 325 Mg Tablet) 650 mg PO Q4HR PRN PRN Reason: Pain 1 to 4, or Fever Last Admin: 10/18/21 07:48 Dose: 650 mg Acetaminophen/Butalbital/Caffeine (Butalb/Acetam/Caff 50/325/40mg Tablet) 1 tab PO DAILY PRN PRN Reason: HEADACHE Last Admin: 10/20/21 17:28 Dose: 1 tab Apixaban (Apixaban 5 Mg Tablet) 5 mg PO BID SHYAM Last Admin: 10/21/21 09:57 Dose: 5 mg Carbamazepine (Carbamazepine Er 200 Mg Tablet) 400 mg PO DAILY SHYAM Last Admin: 10/21/21 08:41 Dose: 400 mg Carbamazepine (Carbamazepine Er 200 Mg Tablet) 800 mg PO QPM [facility] Last Admin: 10/20/21 20:44 Dose: 800 mg Docusate Sodium (Docusate Sodium 250 Mg Capsule) 250 - 500 mg PO DAILY [facility] Last Admin: 10/21/21 08:39 Dose: 250 mg Famotidine (Famotidine 20 Mg Tablet) 20 mg PO BID [facility] Last Admin: 10/21/21 08:39 Dose: 20 mg Furosemide (Furosemide 20 Mg/2 Ml Vial) 20 mg IVP BIDDIURETIC [facility] Last Admin: 10/21/21 13:46 Dose: 20 mg Hydromorphone HCl (Hydromorphone 0.5 Mg/0.5 Ml Syringe) 0.5 mg IVP Q6H PRN PRN Reason: Severe Pain Last Admin: 10/21/21 12:10 Dose: 0.5 mg Cefepime HCl 2 gm/ Sodium (Chloride) 100 mls @ 200 mls/hr IV BID [facility] Last Infusion: 10/21/21 12:40 Dose: Infused Metronidazole (Flagyl 500 Mg/100 Ml) 500 mg in 100 mls @ 100 mls/hr IV Q8H [facility] Last Infusion: 10/21/21 14:00 Dose: Infused Dextrose (D5w) 1,000 mls @ 83.333 mls/hr IV .Q12H [facility] Last Admin: 10/21/21 12:00 Dose: 83.3 mls/hr Acetaminophen (Acetaminophen) 1,000 mg in 100 mls @ 400 mls/hr IV Q6HR PRN PRN Reason: Pain or Fever > 38C (100.4F) Last Infusion: 10/21/21 01:55 Dose: Infused Fluconazole (Diflucan 200 Mg/100 Ml) 100 mls @ 100 mls/hr IV DAILY [facility] Last Infusion: 10/21/21 13:20 Dose: Infused Sodium Chloride (Normal Saline 0.9%) 500 mls @ 20 mls/hr IV Q24H PRN PRN Reason: TKO RATE Last Admin: 10/20/21 19:51 Dose: 20 mls/hr Vancomycin HCl 1 gm/Vancomycin HCl 500 mg/ Sodium Chloride 500 mls @ 250 mls/hr IV 1100,2300 [facility] Last Infusion: 10/21/21 17:23 Dose: Infused Amiodarone HCl/Dextrose (Nexterone 360 Mg/200 Ml) 200 mls @ 33.333 mls/hr IV ONCE ONE Stop: 10/21/21 19:13 Last Admin: 10/21/21 14:00 Dose: 33.333 mls/hr Amiodarone HCl/Dextrose (Nexterone 360 Mg/200 Ml) 200 mls @ 16.667 mls/hr IV .Q12H [facility] Ibuprofen (Ibuprofen 600 Mg Tablet) 600 mg PO Q6HR PRN PRN Reason: Pain or Fever > 38C (100.4F) Last Admin: 10/21/21 00:32 Dose: 600 mg Insulin Glargine (Insulin Glargine 300 Unit/3 Ml Pen) 25 unit SUBQ BID [facility] Last Admin: 10/21/21 10:04 Dose: 25 unit Insulin Human Lispro (Insulin Lispro 300 Unit/3 Ml Pen) 3 - 11 unit SUBQ 0800,1200,1700,2100 [facility]; Protocol Last Admin: 10/21/21 16:46 Dose: 5 unit Metoprolol Succinate (Metoprolol Succinate 50 Mg Tablet) 200 mg PO DAILY [facility] Last Admin: 10/21/21 08:38 Dose: 200 mg Metoprolol Tartrate (Metoprolol 5 Mg/5 Ml Vial) 5 mg IVP Q6H PRN PRN Reason: Tachycardia Multi-Ingredient Ointment (Zinc Oxide 20% Oint 30 Gm Tube) 1 applic TOP PRN PRN PRN Reason: Skin Care Last Admin: 10/19/21 06:36 Dose: 1 applic Polyethylene Glycol (Polyethylene Glycol 3350 17 Gm Packet) 17 gm PO DAILY [facility] Last Admin: 10/21/21 08:36 Dose: 17 gm Senna (Senna 8.6 Mg Tablet) 8.6 - 17.2 mg PO DAILY [facility] Last Admin: 10/21/21 08:37 Dose: 8.6 mg Sodium Chloride (Sodium Chloride Flush 0.9% 10 Ml Syringe) 10 ml IVP 0100,0900,1700 [facility] Last Admin: 10/21/21 16:46 Dose: 10 ml Sodium Chloride (Sodium Chloride Flush 0.9% 10 Ml Syringe) 10 ml IVP PRN PRN PRN Reason: NEEDED PER PROVIDER ORDERS Last Admin: 10/21/21 04:36 Dose: 40 ml Insulin Glargine [Lantus] 50 unit SUBQ BID 08/09/12 carBAMazepine [Carbamazepine ER] 400 mg PO DAILY 10/22/17 Acetaminophen [Tylenol Arthritis] 1,300 mg PO TID 10/18/21 Apixaban [Eliquis] 5 mg PO BID 10/18/21 Butalb/Acetaminophen/Caffeine [Fioricet 50-300-40 mg Capsule] 1 tab PO DAILY PRN 10/18/21 Cyclobenzaprine [Flexeril] 10 mg PO TID PRN 10/18/21 Empagliflozin [Jardiance] 25 mg PO DAILY 10/18/21 Furosemide [Lasix] 20 mg PO DAILY 10/18/21 Insulin Lispro [Insulin Lispro Kwikpen U-100] 10 unit SUBQ TIDWM 10/18/21 Metformin HCl 1,000 mg PO BIDWM 10/18/21 Metoprolol Succinate [Toprol Xl] 200 mg PO DAILY 10/18/21 Rosuvastatin Calcium [Crestor] 20 mg PO DAILY 10/18/21 carBAMazepine [Carbamazepine ER] 800 mg PO QPM 10/18/21 lisinopriL [Lisinopril] 20 mg PO DAILY 10/18/21 Temperature is 37.2. Heart rate 73. Blood. Pressure 126/67. Respirations 16. 97% on room air. He is 5 foot 6 inches tall weighs 94.5 kg Restless, not really oriented Neck is supple no JVD Lungs have diminished breath sounds at the bases but they are clear and he has no crackles rhonchi wheezing Regular rate and rhythm Abdomen is soft, hypoactive bowel sounds, nontender, no distention, no masses Extremities without edema, full range of motion. There is no joint effusions Admission white cell count was 16. He then went up to 24. He dropped to 4.7 yesterday and is 4.8 today. Sodium 141 yesterday. Potassium 3.7 this morning. BUN and creatinine are relatively normal. Troponin is 31. All of his connective tissue work-up antibodies are negative and undetectable. HIV antibody negative. SARS PCR is negative. Assessment/plan 1. Fever of unknown origin. Extensive work-up noted as above. He is responding to antibiotic therapy and antifungal therapy. But I am at a loss to add further work-up, or figure out where we are going with this. It is late in the day today. We have been focused on getting line access and continuing his medications. I will speak to [facility] infectious disease tomorrow. I need advice as to how long we can continue these broad- spectrum antibiotics or if there is any further work-up they would recommend. Since his chest x-ray confirms that the PICC line is still in place, we will continue to use it. Anesthesia will come in tomorrow morning to take a look at it again. 2. A. fib with RVR. He is gone in and out. Today's third burst resulted in my ordering amiodarone drip to load him. I will now switch him over to amiodarone p.o. Preliminary echocardiogram report from today shows an ejection fraction of 55 to 60%. Grade 1 diastolic dysfunction. Right ventricle size normal. Mild to moderate increased left atrial volume. Right atrial volume normal. Mild to moderate aortic stenosis with peak/mean pressure pressure gradients of 36 mmHg/27 mmHg. Aortic valve area by continuity 1.5 cm. His aortic root is mildly dilated for his size. Subtle vegetative lesions could not be excluded. No mass or thrombus identified. I have not anticoagulated him. We will switch him to p.o. amiodarone. Will discuss with infectious disease tomorrow and cardiology to see if I need to think about endocarditis in spite of negative blood cultures. 3. Altered mental status. Started becoming more alert on October 20. Most likely due to his fever. We will start decreasing IV fluids and eat advancing his diet. 4. Sepsis resolved 5. Type 2 diabetes mellitus. At home he is on lispro 10 units with meals. Lantus 50 units twice daily. Jardiance. Metformin. Here he is on Lantus 25 units twice daily. Lispro sliding scale. Glucose has been controlled with this. Yesterday he was as high as 213 but came down to 143 by the evening. Today he has been 121, 161, 193. No changes at this time for his diabetes. 6. Seizure disorder that is stable on his usual meds 7. Chronic low back pain. Also stable. CT noncontributory. 8. Hyperosmolar hyperglycemic status present on admission has now resolved. Off insulin drip. 9. Hyponatremia resolved.
--- NOTE | 2021-10-21 18:46 | XRAY Report ---
PROCEDURE: Chest for Line Placement INDICATIONS: Confirm PICC Line Placement TECHNIQUE: One view of the chest was acquired. COMPARISON: Chest radiograph from earlier today. FINDINGS: Surgical changes and devices: Tip of the right PICC projects over the lower SVC, approximately 1.2 c m above the superior cavoatrial junction. Lungs and pleura: Lung volumes are low. Minimal bibasilar opacities are present. No large pleural eff usion. No pneumothorax. Mediastinum: Cardiac silhouette is enlarged, may be accentuated by low lung volumes. Bones and chest wall: No suspicious bony lesions. Overlying soft tissues appear unremarkable. IMPRESSION: 1. Tip of the right PICC projects over the lower SVC. 2. Low lung volumes with bibasilar opacities probably representing atelectasis, aspiration or pneumon ia difficult to exclude. 3. Cardiac silhouette appears enlarged, could be accentuated by low lung volumes. No definite or obvi ous pulmonary vascular congestion. Reviewed by: Eligio Sauer MD on 10/21/2021 6:45 PM PDT Approved by: Eligio Sauer MD on 10/21/2021 6:45 PM PDT Station ID: [id number]
[2021-10-21] MEDS: AMIODARONE 360 MG/200 ML 200 ML IV SCH (20:04)
[2021-10-21] MEDS ORDERED: VANCOMYCIN INJ 1.5 GM in SODIUM CHLORIDE 0.9% 250 ML IV SCH (23:00)
[2021-10-21] MEDS: BUTALB/ACETAM/CAFF 50/325/40MG TABLET PO PRN (23:41)
[2021-10-22] MEDS: SODIUM CHLORIDE FLUSH 0.9% 10 ML SYRINGE IVP SCH ×3 (00:10→16:41)
[2021-10-22] MEDS ORDERED: HALOPERIDOL 5 MG/ML VIAL IVP PRN (03:04)
[2021-10-22] MEDS: DEXTROSE 5% 1,000 ML IV SCH ×2 (04:02→16:45)
[2021-10-22] MEDS: metroNIDAZOLE 500 MG/100 ML 500 MG/100 ML BAG IV SCH ×2 (04:02→13:00)
[2021-10-22] MEDS: HYDROmorphone 0.5 MG/0.5 ML SYRINGE IVP PRN ×3 (04:06→21:13)
[2021-10-22] MEDS: SODIUM CHLORIDE FLUSH 0.9% 10 ML SYRINGE IVP PRN (05:05)
[2021-10-22 05:46] LABS: BASOPHILS % (AUTO) 0.3 %; EOSINOPHILS # (AUTO) 0.2 10^3/uL (0.0-0.7); HCT - HEMATOCRIT 34.1 % (42.0-52.0); HGB - HEMOGLOBIN 11.4 g/dL (14.0-18.0); LYMPHOCYTES % (AUTO) 15.1 %; MEAN CORPUSCULAR HEMOGLOBIN 34.1 pg (27.0-31.0); MEAN CORPUSCULAR HGB CONC 33.4 g/dL (32.0-36.0); MEAN CORPUSCULAR VOLUME 102.1 fL (80.0-94.0); MEAN PLATELET VOLUME 10.8 fL (7.4-11.4); MONOCYTES # (AUTO) 0.4 10^3/uL (0.0-1.0); MONOCYTES % (AUTO) 6.2 %; NEUTROPHILS # (AUTO) 5.1 10^3/uL (1.5-6.6); NEUTROPHILS % (AUTO) 74.7 %; PLT - PLATELET COUNT 92 10^3/uL (130-450); RED BLOOD COUNT 3.34 10^6/uL (4.70-6.10); RED CELL DISTRIBUTION WIDTH 12.6 % (12.0-15.0); WHITE BLOOD COUNT 6.9 x10^3/uL (4.8-10.8)
[2021-10-22 05:50] LABS: CALCIUM, IONIZED 1.21 mmol/L (1.15-1.33); VBG PH 7.443 (7.31-7.41)
[2021-10-22 05:57] LABS: MAGNESIUM 1.7 mg/dL (1.7-2.8); PHOSPHORUS 2.5 mg/dL (2.5-4.6)
[2021-10-22] MEDS: FUROSEMIDE 20 MG/2 ML VIAL IVP SCH ×2 (06:09→14:56)
[2021-10-22] MEDS: NEUTRA-PHOS 250 MG TABLET PO SCH ×2 (06:26→09:03)
[2021-10-22] MEDS ORDERED: POTASSIUM CHLORIDE 20 MEQ TABLET PO ONE ×2 (08:00)
[2021-10-22] MEDS ORDERED: MAGNESIUM OXIDE 400 MG TABLET PO ONE (08:00)
[2021-10-22] MEDS ORDERED: DEXTROSE GEL 37.5 GM TUBE PO ONE (08:11)
[2021-10-22] MEDS: AMIODARONE 360 MG/200 ML 200 ML IV SCH (08:18)
[2021-10-22] MEDS: polyethylene glycoL 3350 17 GM PACKET PO SCH (08:37)
[2021-10-22] MEDS: ACETAMINOPHEN 325 MG TABLET PO PRN (08:40)
[2021-10-22] MEDS: SENNA 8.6 MG TABLET PO SCH (08:41)
[2021-10-22] MEDS: METOPROLOL SUCCINATE 50 MG TABLET PO SCH (08:42)
[2021-10-22] MEDS: POTASSIUM CHLORIDE 20 MEQ TABLET PO SCH ×2 (08:43→12:22)
[2021-10-22] MEDS: FAMOTIDINE 20 MG TABLET PO SCH ×2 (08:44→21:07)
[2021-10-22] MEDS: DOCUSATE SODIUM 250 MG CAPSULE PO SCH (08:44)
[2021-10-22] MEDS: IBUPROFEN 600 MG TABLET PO PRN ×2 (08:44→16:29)
[2021-10-22] MEDS: INSULIN LISPRO 300 UNIT/3 ML PEN SUBQ SCH ×4 (08:45→21:08)
[2021-10-22] MEDS: APIXABAN 5 MG TABLET PO SCH ×2 (08:45→21:07)
[2021-10-22] MEDS: carBAMazepine ER 200 MG TABLET PO SCH ×2 (08:54→21:06)
[2021-10-22] MEDS: CEFEPIME 2 GM in SODIUM CHLORIDE 0.9% MINIBAG 100 ML IV SCH (08:55)
[2021-10-22] MEDS: INSULIN GLARGINE 300 UNIT/3 ML PEN SUBQ SCH ×2 (09:00→21:08)
[2021-10-22] MEDS: FLUCONAZOLE 200 MG/100 ML 100 ML IV SCH (09:14)
[2021-10-22] MEDS: ZINC OXIDE 20% OINT 30 GM TUBE TOP PRN ×2 (09:19→12:52)
[2021-10-22] MEDS: VANCOMYCIN INJ 1 GM, VANCOMYCIN INJ 500 MG in SODIUM CHLORIDE 0.9% 500 ML IV SCH ×2 (11:35→23:01)
[2021-10-22] MEDS: AMIODARONE 200 MG TABLET PO SCH (12:22)
[2021-10-22 14:08] LABS: A/G RATIO 1.4 (0.7-1.7); ALPHA-1-GLOBULIN 0.2 g/dL (0.0-0.4); ALPHA-2-GLOBULIN 0.8 g/dL (0.4-1.0); BETA GLOBULIN 0.6 g/dL (0.7-1.3); GAMMA GLOBULIN 0.6 g/dL (0.4-1.8); GLOBULIN, TOTAL 2.2 g/dL (2.2-3.9); PROTEIN TOTAL 5.2 g/dL (6.0-8.5)
--- NOTE | 2021-10-22 14:15 | CONSULTATION NOTE ---
Consultation Report: PICC line appears intact with sterile dressing and vincenzo wrap protecting site. CXR confirms proper placement. Did not adjust/reposition/redress PICC at this time.
[2021-10-22] MEDS: BUTALB/ACETAM/CAFF 50/325/40MG TABLET PO PRN (16:29)
[2021-10-22] MEDS ORDERED: metroNIDAZOLE 250 MG TABLET PO SCH (17:00)
--- NOTE | 2021-10-22 18:11 | PROVIDER PROGRESS NOTE ---
Progress Note October 22, 2021 6:07 PM He is very remorseful and apologetic. He does know what came over him yesterday. He does not know why he pulled all those lines out. Today is the most oriented and appropriate I have seen him. He knows where he is. He does not know what happened that brought him here. He does not remember getting sick. He feels weak, tired but he denies any chest pain, cough, shortness of breath. Blood cultures continue to be negative, as is CSF cultures. Other than him becoming afebrile for now close to 48 hours, there is no change in status. Active medications are unchanged from yesterday. He is still on all of those antibiotics. Temperature 36.5. Heart rate 64. Blood pressure 98/61. Respirations 18. 98% on room air. 5 foot 6 inches tall, 91 kg An alert oriented balding male that looks stated age. Alejandre unkempt. Oral mucosa is moist and pink Neck is supple Lungs are clear to auscultation and percussion with diminished breath sounds at the bases. He has an occasional cough and he clears his throat with a cough but is nonproductive. No respiratory distress. Regular rate and rhythm. He has stopped going in and out of atrial fibrillation. Abdomen soft, nontender, normal bowel sounds Extremities with slight leg edema but full range of motion. Neurologically he is alert to place, person. Not clear on the date. Cannot remember how he got here or why he is here but he remembers some of his actions from yesterday and is very apologetic to nursing staff. Following two-step commands. No focal deficits. Normal facial symmetry. Normal speech. White cell count is 6.9. Hemoglobin 11.4. Platelets 92. Venous pH is 7.44 Potassium is low at 3.2 and has been supplemented Troponin #1 was 621 when he came in. 31 yesterday. 28 today. Assessment/plan: 1. Fever of unknown origin. Extensive work-up . He is responding to antibiotic therapy and antifungal therapy. But I am at a loss to add further work-up, or figure out where we are going with this. PICC line was placed yesterday because of multiple medications and difficult IV access. He pulled back 5 cm. Chest x-ray was checked. The tip of his PICC line is still in place and as such it can be used. Anesthesia saw him this morning and rechecked it. I did speak to [facility] infectious disease. They are on-call today and I was connected by the mail processing machine operator. We went over the complete work-up. She says there is nothing further to offer or nothing further to do because the work-up is complete. We went over his medication list to make sure he was on any meds that would do this to him. None was thought to be the cause of fever. She says that there are some patients to do this and we may never find out why they had an infection. She would recommend that we stop all antibiotics and reassess in 24 hours. We discussed the echocardiogram results. No need for transesophageal echo at this time unless he really spikes fever and then we have to restart his antibiotics. We may never know why he spiked a fever. 2. A. fib with RVR. He is gone in and out. 10/21 third burst resulted in my ordering amiodarone drip to load him. I switched him over to amiodarone p.o. today and stopped the drip. Preliminary echocardiogram report from today shows an ejection fraction of 55 to 60%. Grade 1 diastolic dysfunction. Right ventricle size normal. Mild to moderate increased left atrial volume. Right atrial volume normal. Mild to moderate aortic stenosis with peak/mean pressure pressure gradients of 36 mmHg/27 mmHg. Aortic valve area by continuity 1.5 cm. His aortic root is mildly dilated for his size. Subtle vegetative lesions could not be excluded. No mass or thrombus identified. Infectious disease consult today states no need for transesophageal echo unless he really spikes a temperature and get sick again. Plan for amiodarone p.o. for about a month. Reassess at that time. Will have PCP follow-up 3. Altered mental status. Resolved. Started becoming more alert on October 20. Most likely due to his fever. Transfer to Med Surg and stop IVF since he is now eating. 4. Sepsis resolved 5. Type 2 diabetes mellitus. At home he is on lispro 10 units with meals. Lantus 50 units twice daily. Jardiance. Metformin. Here he is on Lantus 25 units twice daily. Lispro sliding scale. Glucose has been controlled with this. 10/20 he was as high as 213 but came down to 143 by the evening. 10/21 he had been 121, 161, 193. This morning he was as low as 62. We held his Lantus and he bumped up to 117 with juice. This afternoon he is 274 and 222. Change Lantus to 20 units SQ twice daily from the 25 twice daily he is on. 6. Seizure disorder that is stable on his usual meds 7. Chronic low back pain. Also stable. CT noncontributory. 8. Hyperosmolar hyperglycemic status present on admission has now resolved. Off insulin drip. 9. Hyponatremia resolved.
[2021-10-23] MEDS: SODIUM CHLORIDE FLUSH 0.9% 10 ML SYRINGE IVP SCH ×4 (00:30→23:54)
[2021-10-23] MEDS: HYDROmorphone 0.5 MG/0.5 ML SYRINGE IVP PRN ×4 (03:10→23:59)
[2021-10-23] MEDS: FUROSEMIDE 20 MG/2 ML VIAL IVP SCH ×2 (05:08→14:28)
[2021-10-23 06:12] LABS: BASOPHILS % (AUTO) 0.2 %; EOSINOPHILS # (AUTO) 0.3 10^3/uL (0.0-0.7); EOSINOPHILS % (AUTO) 4.8 %; HCT - HEMATOCRIT 33.6 % (42.0-52.0); HGB - HEMOGLOBIN 11.2 g/dL (14.0-18.0); LYMPHOCYTES # (AUTO) 1.1 10^3/uL (1.5-3.5); LYMPHOCYTES % (AUTO) 21.8 %; MEAN CORPUSCULAR HEMOGLOBIN 34.6 pg (27.0-31.0); MEAN CORPUSCULAR HGB CONC 33.3 g/dL (32.0-36.0); MEAN CORPUSCULAR VOLUME 103.7 fL (80.0-94.0); MONOCYTES # (AUTO) 0.4 10^3/uL (0.0-1.0); MONOCYTES % (AUTO) 6.7 %; NEUTROPHILS # (AUTO) 3.5 10^3/uL (1.5-6.6); NEUTROPHILS % (AUTO) 65.9 %; PLT - PLATELET COUNT 76 10^3/uL (130-450); RED BLOOD COUNT 3.24 10^6/uL (4.70-6.10); RED CELL DISTRIBUTION WIDTH 12.8 % (12.0-15.0); WHITE BLOOD COUNT 5.2 x10^3/uL (4.8-10.8)
[2021-10-23 06:25] LABS: CALCIUM 9.1 mg/dL (8.5-10.3); CREATININE 0.4 mg/dL (0.6-1.2); POTASSIUM 3.8 mmol/L (3.5-5.0)
[2021-10-23] MEDS: INSULIN LISPRO 300 UNIT/3 ML PEN SUBQ SCH ×4 (08:09→21:00)
[2021-10-23] MEDS: APIXABAN 5 MG TABLET PO SCH ×2 (08:11→20:54)
[2021-10-23] MEDS: polyethylene glycoL 3350 17 GM PACKET PO SCH (08:11)
[2021-10-23] MEDS: METOPROLOL SUCCINATE 50 MG TABLET PO SCH (08:11)
[2021-10-23] MEDS: DOCUSATE SODIUM 250 MG CAPSULE PO SCH (08:11)
[2021-10-23] MEDS: carBAMazepine ER 200 MG TABLET PO SCH ×2 (08:11→20:55)
[2021-10-23] MEDS: SENNA 8.6 MG TABLET PO SCH (08:12)
[2021-10-23] MEDS: BUTALB/ACETAM/CAFF 50/325/40MG TABLET PO PRN (08:12)
[2021-10-23] MEDS: INSULIN GLARGINE 300 UNIT/3 ML PEN SUBQ SCH ×2 (08:12→21:00)
[2021-10-23] MEDS: FAMOTIDINE 20 MG TABLET PO SCH ×2 (08:12→20:55)
[2021-10-23] MEDS: AMIODARONE 200 MG TABLET PO SCH (08:12)
[2021-10-23] MEDS ORDERED: FLUCONAZOLE 100 MG TABLET PO SCH (09:00)
--- NOTE | 2021-10-23 10:50 | PROVIDER PROGRESS NOTE ---
Progress Note October 23, 2021 10:46 AM Antibiotics were stopped yesterday. Yesterday he was very alert, appropriate in his conversation. This morning he tells me he just does not feel well but he cannot tell me why. There is been no fever, no body aches, no rigors. He denies cough, congestion, abdominal pain. His main conversational fixation is his brother. He feels like his brother is avoiding his phone calls. He is getting alarmed and wonders what is going on. He keeps on dialing his phone number and no one is there for the last 5 to 6 hours. Temperature is 36.6. Heart rate 72. Blood pressure 140/70. 20 respirations. 98% on room air. 5 foot 6 inches tall. 94 kg Bearded, bald, white male, looks stated age, slightly fast pressured speech, slight agitation and that he is rocking back and forth in the bed as he gets anxious about his brother not returning his phone call. Neck is supple no JVD or bruits Diminished breath sounds at the bases but is completely clear. No crackles rhonchi wheezing. No tachypnea. No use of accessory muscles. PMI is normally placed, regular rate and rhythm. No tachycardia Abdomen is soft, nontender, normal bowel sounds. Last reported bowel movement was October 14. Extremities are warm, no edema. He has some excoriations in the right upper chest wall over the clavicle that are healing, no bruising or redness. At the base of his spine, over the lumbosacral area, he had some bruising on admission that is slowly resolving. He also has some ecchymosis around the right shoulder lateral deltoid area. Otherwise no true skin tears or breakdown. Neurologically he is alert and oriented to person place date. Poor insight, low cognition understanding. Perseverating now. Forgetful. Speech is normal. BMP is normal except for random glucose of 153. CBC shows low-grade anemia with a hemoglobin of 11.2. MCV 103. Platelets 76. On admission he was 310. Slowly coming down to the 76 that he is today. Assessment/plan 1. Fever of unknown origin. Extensive work-up . He is responding to antibiotic therapy and antifungal therapy. But I am at a loss to add further work-up, or figure out where we are going with this. PICC line was placed yesterday because of multiple medications and difficult IV access. He pulled back 5 cm. Chest x-ray was checked. The tip of his PICC line is still in place and as such it can be used. Anesthesia saw him again 10/22 and rechecked it. I did speak to [facility] infectious disease. I spoke to the oncall 10/22 and I was connected by the coal pulverizing operator. We went over the complete work-up. She says there is nothing further to offer or nothing further to do because the work-up is complete. We went over his medication list to make sure he was on any meds that would do this to him. None was thought to be the cause of fever. She says that there are some patients to do this and we may never find out why they had an infection. She would recommend that we stop all antibiotics and reassess in 24 hours. We discussed the echocardiogram results. No need for transesophageal echo at this time unless he really spikes fever and then we have to restart his antibiotics. We may never know why he spiked a fever. Today, he appears to not be feeling well but there is no outright fever. I am noting that his platelets are going down And he now has thrombocytopenia. He is on Eliquis for the atrial fibrillation and I am not seeing any use of Lovenox or heparin. He is already been evaluated with HIV serology that was negative. LP was negative for viral meningitis. Infectious diseases such as hantavirus, or rickettsial diseases have this as symptomatology. We will continue to follow him today. Pay close attention to any fever spikes. I discussed it with the nursing to notify me immediately. 2. A. fib with RVR. He is gone in and out. 10/21 third burst resulted in my ordering amiodarone drip to load him. I switched him over to amiodarone p.o. 10/22 and stopped the drip. Final echocardiogram report from 10/21 shows an ejection fraction of 55 to 60%. Grade 1 diastolic dysfunction. Right ventricle size normal. Mild to moderate increased left atrial volume. Right atrial volume normal. Mild to moderate aortic stenosis with peak/mean pressure pressure gradients of 36 mmHg/27 mmHg. Aortic valve area by continuity 1.5 cm. His aortic root is mildly dilated for his size. Subtle vegetative lesions could not be excluded. No mass or thrombus identified. Infectious disease consult 10/22 states no need for transesophageal echo unless he really spikes a temperature and get sick again. Plan for amiodarone p.o. for about a month. Reassess at that time. Will have PCP follow-up 3. Altered mental status. Resolved. Started becoming more alert on October 20. Most likely due to his fever. Transferred to Med Surg 10/22 and IVF stopped since he is now eating. 4. Sepsis resolved 5. Type 2 diabetes mellitus. At home he is on lispro 10 units with meals. Lantus 50 units twice daily. Jardiance. Metformin. Here he is on Lantus 25 units twice daily. Lispro sliding scale. Glucose has been controlled with this. 10/20 he was as high as 213 but came down to 143 by the evening. 10/21 he had been 121, 161, 193. 10/22 am he was as low as 62. We held his Lantus and he bumped up to 117 with juice. By afternoon he is 274 and 222. Change Lantus to 20 units SQ twice daily from the 25 twice daily he is on. This morning he is 132 and 236. I anticipate that the 236 is because he received his Lantus at a reduced dose of 20 but no sliding scale because he did not warrant it. Hopefully he will correct as the day goes on. 6. Seizure disorder that is stable on his usual meds 7. Chronic low back pain. Also stable. CT noncontributory. 8. Hyperosmolar hyperglycemic status present on admission has now resolved. Off insulin drip. 9. Hyponatremia resolved.
[2021-10-23] MEDS: SODIUM CHLORIDE FLUSH 0.9% 10 ML SYRINGE IVP PRN ×2 (17:45→23:54)
[2021-10-23] MEDS: ACETAMINOPHEN 325 MG TABLET PO PRN (20:55)
[2021-10-23] MEDS ORDERED: BISACODYL 10 MG SUPP PR ONE (20:57)
[2021-10-24] MEDS: ACETAMINOPHEN 325 MG TABLET PO PRN (04:10)
[2021-10-24 06:08] LABS: CALCIUM 10.1 mg/dL (8.5-10.3); CREATININE 0.3 mg/dL (0.6-1.2); POTASSIUM 3.9 mmol/L (3.5-5.0)
[2021-10-24] MEDS: FUROSEMIDE 20 MG/2 ML VIAL IVP SCH (06:33)
[2021-10-24] MEDS: HYDROmorphone 0.5 MG/0.5 ML SYRINGE IVP PRN (08:22)
[2021-10-24] MEDS: INSULIN LISPRO 300 UNIT/3 ML PEN SUBQ SCH (08:29)
[2021-10-24] MEDS: DOCUSATE SODIUM 250 MG CAPSULE PO SCH (08:53)
[2021-10-24] MEDS: polyethylene glycoL 3350 17 GM PACKET PO SCH (08:53)
[2021-10-24] MEDS: METOPROLOL SUCCINATE 50 MG TABLET PO SCH (08:54)
[2021-10-24] MEDS: SENNA 8.6 MG TABLET PO SCH (08:54)
[2021-10-24] MEDS: carBAMazepine ER 200 MG TABLET PO SCH (08:55)
[2021-10-24] MEDS: AMIODARONE 200 MG TABLET PO SCH (08:55)
[2021-10-24] MEDS: APIXABAN 5 MG TABLET PO SCH (08:55)
[2021-10-24] MEDS: SODIUM CHLORIDE FLUSH 0.9% 10 ML SYRINGE IVP SCH (08:56)
[2021-10-24] MEDS: FAMOTIDINE 20 MG TABLET PO SCH (08:56)
[2021-10-24] MEDS: INSULIN GLARGINE 300 UNIT/3 ML PEN SUBQ SCH (08:58)
--- NOTE | 2021-10-24 09:27 | DISCHARGE SUMMARY ---
Discharge Summary Admit Date: 10/17/21 Discharge Date: 10/24/21 Discharging Provider: Talia Saldaña MD Primary Care Provider: Jesús Guevara MD Code Status: Attempt Resuscitation Condition at Discharge: Stable Discharge Disposition: [address] [place] [address] Service - DIAGNOSES Discharge Diagnoses with Status of Each Condition: 1. Fever of unknown origin 2. Atrial fibrillation with RVR 3. Altered mental status 4. Sepsis 5. Type 2 diabetes mellitus with obesity 6. Seizure disorder 7. Chronic bilateral low back pain 8. Hyperosmolar hyperglycemic state 9. Hyponatremia - HPI History of Present Illness: This is a 61-year-old male with a history of cranial deformity, history of A. fib not on anticoag, DM type 2 on Insulin and Metformin, hypertension, hyperlipidemia, obesity, seizure disorder. The patient's brother lives with him and called an ambulance today when the patient was not acting himself. He was gr oggy, confused, thrashing around but not agitated or combative. EMS personel found that there were unopened Insulin and syringes in the residence (presumably unused Insulin therefore). In the ED, he was found to have a glucose of 1100, potassium 5.7, sodium of 136, serum ketone small, and he was lethargic but arousable only briefly, moving all extremities spontaneously. He underwent a head and neck CT that showed no acute findings but there were microvascular changes plus atrophy on the brain imaging. He was started on an insulin drip and aggressive saline infusion by IV. He also was found to be in A. fib with RVR at rates of 160. He had diltiazem IV bolus given, which only decreased his heart rate to 130 and then he was started on diltiazem drip. Other labs show that he had a white blood count of 16, temperature of 38.9, chest x-ray showing diffuse interstitial changes, lactic acid was not done and troponin was not done. Blood cultures were taken and he was put on empiric broad-spectrum antibiotics including iv cefepime, vancomycin and Flagyl. The patient is being admitted to the ICU by the hospitalist team to manage hyperosmolar nonketotic state, A. fib with RVR, and sepsis with a fever and elevated white count, source unknown. - Past Medical History Cardiovascular: reports: Hypertension, High cholesterol Respiratory: reports: None Neuro: reports: Head injury, Headaches, Seizure disorder, Other Endocrine/Autoimmune: reports: Type 2 diabetes GI: reports: None WEEKEND RECEPTIONIST: reports: None HEENT: reports: Chronic sinusitis Psych: reports: Depression, Anxiety, Obsessive compulsive disorder Musculoskeletal: reports: Chronic back pain, Other Derm: reports: None MRSA Hx?: No - Past Surgical History Ortho: reports: Carpal Tunnel surgery - Family & Social History Family History: Mother: , Cancer, Father: , Cancer, Brother: Alive and Well, Diabetes, Type 2, Obesity Living arrangement: At home Living Situation: With family Social History Notes: The patient moved from [place] to [place] a few years ago and resides independently with his brother, with whom he has lived for his whole life. He has never been , has no children. He denies illicit drug use, alcohol use, or tobacco use. He wishes to be a FULL code, according to his last admission - CONSULTS | PROCEDURES Procedures: 1. Echocardiogram had underlying sinus rhythm with PACs. Left ventricle was normal. Ejection fraction was 55 to 60%. Right ventricle normal size and function. Mild to moderate aortic stenosis without vegetations. Blood cultures negative on October 17. Blood cultures negative on October 18. CSF spinal fluid culture negative on October 18. Multiple chest x-rays done looking for pneumonia and for PICC line placement. He had consistent low lung volumes with bibasilar opacities representing probable atelectasis and we did not clinically suspect pneumonia. Head CT was with atrophy and chronic ischemic changes without intracranial hemorrhage or mass-effect. Cervical spine CT had no acute fracture or traumatic malalignment and had diffuse degenerative disc disease. Chest CT without evidence of acute injury. Incidental nonobstructive renal calculi and right adrenal adenoma. Small pneumatoceles noted in the right. No pericardial effusions. No adenopathy. Lumbar CT without infectious source. No osseous lytic lesions. Multilevel degenerative disc disease and arthropathy. Abdomen pelvis CT had bilateral posterior dependent atelectasis, right greater than left. Otherwise it was unremarkable unenhanced CT of the liver, gallbladder, pancreas, bowel, urinary bladder. No acute or suspicious osseous lesion seen. - HOSPITAL COURSE Hospital Course: This middle-aged gentleman was lethargic, almost nonverbal. High fevers, but we found no source. He remained on broad-spectrum antibiotic therapy to cover all organisms. The only thing he was not on was antivirals. Antifungals were also added. He had his last fever on October 20. After that point in time fever ceased. He gradually woke up and returned to baseline. Was eating 100% of his food. Worried about getting home and making his "big brother" mad. He did not want to inconvenience him. Otherwise he demonstrated some cognitive deficits that were felt to be baseline for him considering his congenital history. We consulted with infectious disease at [facility]. They reviewed the work-up with this and stated that nothing could be found. That there were some cases like this. They asked us to please stop all antibiotics and observe the patient for 24 to 48 hours and make sure that fever did not return. We did that and there was no further fever. We do not know where his febrile source came from. But he was eating, walking in the rooms, oxygenating well, and back to baseline mental status. Temperature was 36.5. Heart rate 73. Blood pressure 155/78. Respirations 18. 97% on room air. 5 feet 6 inches tall, 93.5 kg. Pleasant gentleman. Cooperative. Neck supple. Lungs clear to auscultation and percussion. PMI normally placed. Regular rate and rhythm. Abdomen soft nontender. Extremities without edema. I have asked him to make sure he returns to the hospital if fever comes back. If he has any abdominal pain, blood in his urine, purulent cough. He needs to follow-up with his primary care provider in the next 1 to 2 weeks for continuity of care. Greater than 30 minutes was spent coordinating discharge - ALLERGIES Allergies/Adverse Reactions: Allergies Allergy/AdvReac Type Severity Reaction Status Date / Time codeine AdvReac Intermediate Emesis Verified 12/16/20 18:30 Penicillins AdvReac Unknown Verified 12/16/20 18:30 - MEDICATIONS Home Medications: Ambulatory Orders Medication Instructions Recorded Confirmed Insulin Glargine [Lantus] 50 unit SUBQ BID 08/09/12 10/18/21 carBAMazepine [Carbamazepine ER] 400 mg PO DAILY 10/22/17 10/18/21 Acetaminophen [Tylenol Arthritis] 1,300 mg PO TID 10/18/21 10/18/21 Apixaban [Eliquis] 5 mg PO BID 10/18/21 10/18/21 Butalb/Acetaminophen/Caffeine 1 tab PO DAILY PRN 10/18/21 10/18/21 [Fioricet 50-300-40 mg Capsule] Cyclobenzaprine [Flexeril] 10 mg PO TID PRN 10/18/21 10/18/21 Empagliflozin [Jardiance] 25 mg PO DAILY 10/18/21 10/18/21 Furosemide [Lasix] 20 mg PO DAILY 10/18/21 10/18/21 Insulin Lispro [Insulin Lispro 10 unit SUBQ TIDWM 10/18/21 10/18/21 Kwikpen U-100] Metformin HCl 1,000 mg PO BIDWM 10/18/21 10/18/21 Metoprolol Succinate [Toprol Xl] 200 mg PO DAILY 10/18/21 10/18/21 Rosuvastatin Calcium [Crestor] 20 mg PO DAILY 10/18/21 10/18/21 carBAMazepine [Carbamazepine ER] 800 mg PO QPM 10/18/21 10/18/21 lisinopriL [Lisinopril] 20 mg PO DAILY 10/18/21 10/18/21 - LABS Result Diagrams: 10/23/21 04:55 10/24/21 04:53
--- NOTE | 2021-10-24 09:30 | Discharge Plan ---
Discharge Plan Problem Reviewed?: Yes Disposition: Home Health Service Condition: Stable Diet: Regular Activity Restrictions: Activity as Tolerated Shower Restrictions: No Driving Restrictions: Yes (no driving) Assistance Devices: Walker Instruction Topics: Atrial Fibrillation Health Concerns: You came to our emergency room because you were acting strangely at home. You live with one of your brothers and he became alarmed so he called the ambulance. In our emergency room you had several things wrong with you: Severely elevated glucose to 1100, a heart arrhythmia called atrial fibrillation which is a fast irregularly irregular heartbeat, and high fevers. We think that you had an infection that was pretty severe and that infection caused everything else to go wrong. Once we hydrated you, controlled her sugars, and treated the infection you got much better. However we still are very, very puzzled about where the infection is coming from. We gave you antibiotics, antifungals and all of your blood test and blood cultures were negative. We have stopped all of your antibiotics for 2 days and you have not had recurrence of your fever and you feel fine enough to go home. At this time we are happy that you are no longer showing signs and symptoms of illness but you need to be on the look out for re currence of fever, chills, and watch your sugar. Plan of Treatment: 1. Please see your primary care provider in follow-up in the next 2 weeks. 2. If your glucose starts to go high or you start to develop a fever, you need to go to the emergency room 3. Physical therapy and Occupational Therapy evaluated you because you became a little weak and a little off balance while you were here due to your illness. I am sending you home to get more physical therapy and Occupational Therapy. you will also get a new walker but go the [employer] to get that special one you w ant. 4. We are really concerned about your glucose. You came in at greater than 1000 on your glucose. At home you take Lantus 50 units twice a day, lispro 10 units with every meal, Jardiance, and metformin. Here you were on a strict low- carb diet. Your Lantus was 20 units twice a day and you received sliding scale insulin before your meals. We did not give you Jardiance or metformin and your glucose was very well controlled. This morning your glucose was 102. We think that your glucose is going to get very high once you get home because you will go back to bad eating habits. As such, we are not going to be changing your insulin as you take it at home. Please make sure you check your finger stick glucose before you eat so that you do not accidentally overdose on your medicine. You need to monitor yourself carefully so that you do not give yourself too much insulin or medication. Please also make sure you follow-up with your primary care provider about your glucose. Care Goals: To stay healthy at home without recurrence of infection Assessment: Patient has cognitive deficits from developmental delay. I did attempt to speak to his brother, Edmond, who is power of supervisor furnace room. Follow-Up Care: Home Health - PT, Home Health - OT No Smoking: If you smoke, Please STOP! Call for help. Follow-up with: Jesús Guevara MD [Primary Care Provider] -
[2021-10-24 11:38] VITALS: BP 155/78
== END 2021-10-24 11:30 | disposition home health service (06) | DRG 872 ==
LOC: EDUNIT# → ED 10:09 → ICU 15:16 → MS2 10-22 17:59
PROVIDERS: ADMIT Internal Medicine; ATTEND Specialist
PROC: 009U3ZX Drainage of Spinal Canal, Percutaneous Approach, Diagnostic (ICD-10-PCS; principal; 2021-10-18)
PROC: 02HV33Z Insertion of Infusion Device into Superior Vena Cava, Percutaneous Approach (ICD-10-PCS; 2021-10-21)
DX: A41.9 Sepsis, unspecified organism (principal); E87.0 Hyperosmolality and hypernatremia; I48.20 Chronic atrial fibrillation, unspecified; E87.1 Hypo-osmolality and hyponatremia; E87.3 Alkalosis; M54.2 Cervicalgia; M54.89 Other dorsalgia; W19.XXXA Unspecified fall, initial encounter; I48.91 Unspecified atrial fibrillation; Z79.01 Long term (current) use of anticoagulants; E66.9 Obesity, unspecified; G40.909 Epilepsy, unspecified, not intractable, without status epilepticus; G89.29 Other chronic pain; M54.50 Low back pain, unspecified; I10 Essential (primary) hypertension; E78.00 Pure hypercholesterolemia, unspecified; D72.829 Elevated white blood cell count, unspecified; E11.65 Type 2 diabetes mellitus with hyperglycemia; D64.9 Anemia, unspecified; R50.9 Fever, unspecified; I35.0 Nonrheumatic aortic (valve) stenosis; Z79.4 Long term (current) use of insulin; Z79.84 Long term (current) use of oral hypoglycemic drugs; Z80.9 Family history of malignant neoplasm, unspecified; Z83.3 Family history of diabetes mellitus; Z91.14 Patient's other noncompliance with medication regimen
CPT/HCPCS: 36415; 36556; 51702; 70450; 71045; 71250; 72125; 72131; 74176; 80048; 80053; 80156; 80202; 80306; 80307; 81001; 82009; 82140; 82310; 82330; 82550; 82607; 82746; 82803; 82945; 82947; 83690; 83735; 84100; 84132; 84155; 84157; 84165; 84439; 84443; 84478; 84484; 85025; 85651; 86140; 86225; 86235; 86430; 86703; 87040; 87070; 87150; 87205; 87529; 87635; 89051; 93005; 93306; 96374; 96375; 96376; 97162; 97165; 97530; 99285; 99291; A9270; C1751; G0480; J0131; J0282; J1170; J1650; J1815; J3370; 80320; 80329; 81003; 81599; 87086

== ENCOUNTER 2023-02-11 16:12 | Outpatient (CLI) | payer MEDICARE, MEDICAID ==
[2023-02-11 16:49] LABS: BASOPHILS % (AUTO) 0.3 %; EOSINOPHILS # (AUTO) 0.5 10^3/uL (0.0-0.7); EOSINOPHILS % (AUTO) 7.9 %; HGB - HEMOGLOBIN 13.9 g/dL (14.0-18.0); LYMPHOCYTES # (AUTO) 1.6 10^3/uL (1.5-3.5); LYMPHOCYTES % (AUTO) 27.7 %; MEAN CORPUSCULAR HEMOGLOBIN 33.1 pg (27.0-31.0); MEAN CORPUSCULAR HGB CONC 33.9 g/dL (32.0-36.0); MEAN CORPUSCULAR VOLUME 97.6 fL (80.0-94.0); MEAN PLATELET VOLUME 9.5 fL (7.4-11.4); MONOCYTES # (AUTO) 0.3 10^3/uL (0.0-1.0); MONOCYTES % (AUTO) 5.5 %; NEUTROPHILS # (AUTO) 3.4 10^3/uL (1.5-6.6); NEUTROPHILS % (AUTO) 58.4 %; PLT - PLATELET COUNT 141 10^3/uL (130-450); WHITE BLOOD COUNT 5.9 x10^3/uL (4.8-10.8)
[2023-02-11 16:59] LABS: ALBUMIN 4.2 g/dL (3.2-5.5); ALBUMIN/GLOBULIN RATIO 1.8 (1.0-2.2); ALKALINE PHOSPHATASE 55 IU/L (42-121); ALT ALANINE AMINOTRANSFERASE 21 IU/L (10-60); AST ASPARTATE AMINOTRANSFERASE 13 IU/L (10-42); BILIRUBIN,TOTAL 0.5 mg/dL (0.2-1.0); BUN - BLOOD UREA NITROGEN 8 mg/dL (6-20); CALCIUM 9.3 mg/dL (8.5-10.3); CARBON DIOXIDE - CO2 29 mmol/L (21-32); CHLORIDE 102 mmol/L (101-111); CHOL/HDL RATIO 3.6 (<5.0); CHOLESTEROL 185 mg/dL; CREATININE 0.5 mg/dL (0.6-1.3); GFR - MDRD 169 (>89); GLUCOSE 403 mg/dL (74-104); HDL CHOLESTEROL 51 mg/dL; LDL CHOLESTEROL,CALCULATED 116 mg/dL; LDL/HDL RATIO 2.3 (<3.6); POTASSIUM 3.9 mmol/L (3.5-4.5); SODIUM 136 mmol/L (135-145); TOTAL PROTEIN 6.5 g/dL (6.4-8.9); TRIGLYCERIDES 91 mg/dL (48-352); VLDL CHOLESTEROL 18 mg/dL
[2023-02-11 17:01] LABS: CARBAMAZEPINE (TEGRETOL) < 0.5 ug/mL; CREATININE,URINE 33.1 mg/dL; MICROALBUMIN,URINE < 0.7 mg/dL
[2023-02-11 20:45] LABS: ESTIMATED AVERAGE GLUCOSE 252 mg/dL (70-100); HEMOGLOBIN A1c% 10.4 % (4.27-6.07)
== END 2023-02-11 16:13 | disposition home or self-care (01) ==
LOC: LAB 16:12
PROVIDERS: ATTEND Internal Medicine
DX: E11.9 Type 2 diabetes mellitus without complications (principal); E78.5 Hyperlipidemia, unspecified; Z86.69 Personal history of other diseases of the nervous system and sense organs; Z12.5 Encounter for screening for malignant neoplasm of prostate; I48.0 Paroxysmal atrial fibrillation
CPT/HCPCS: 36415; 80053; 80061; 80156; 82043; 82570; 83036; 84443; 85025; G0103; 83721; 84153

== ENCOUNTER 2023-10-01 11:55 | Outpatient (CLI) | payer MEDICARE, MEDICAID ==
[2023-10-01 18:06] LABS: ALBUMIN 4.1 g/dL (3.2-5.5); ALBUMIN/GLOBULIN RATIO 1.8 (1.0-2.2); ALKALINE PHOSPHATASE 52 IU/L (42-121); ALT ALANINE AMINOTRANSFERASE 27 IU/L (10-60); AST ASPARTATE AMINOTRANSFERASE 16 IU/L (10-42); BILIRUBIN,TOTAL 0.5 mg/dL (0.2-1.0); BUN - BLOOD UREA NITROGEN 8 mg/dL (6-20); CALCIUM 9.7 mg/dL (8.5-10.3); CARBAMAZEPINE (TEGRETOL) 5.2 ug/mL; CARBON DIOXIDE - CO2 24 mmol/L (21-32); CHLORIDE 106 mmol/L (101-111); CHOL/HDL RATIO 5.2 (<5.0); CHOLESTEROL 187 mg/dL; CREATININE 0.5 mg/dL (0.6-1.3); GFR - MDRD 168 (>89); GLUCOSE 301 mg/dL (74-104); HDL CHOLESTEROL 36 mg/dL; LDL CHOLESTEROL,CALCULATED 126 mg/dL; LDL/HDL RATIO 3.5 (<3.6); POTASSIUM 3.3 mmol/L (3.5-4.5); SODIUM 140 mmol/L (135-145); TOTAL PROTEIN 6.4 g/dL (6.4-8.9); TRIGLYCERIDES 127 mg/dL (48-352); VLDL CHOLESTEROL 25 mg/dL
[2023-10-01 18:08] LABS: CREATININE,URINE 38.5 mg/dL
[2023-10-01 18:10] LABS: MICROALBUMIN,URINE < 0.7 mg/dL
[2023-10-01 20:39] LABS: ESTIMATED AVERAGE GLUCOSE 255 mg/dL (70-100); HEMOGLOBIN A1c% 10.5 % (4.27-6.07)
== END 2023-10-01 11:56 | disposition home or self-care (01) ==
LOC: LAB.N 11:55
PROVIDERS: ATTEND Internal Medicine
DX: E11.9 Type 2 diabetes mellitus without complications (principal); Z86.69 Personal history of other diseases of the nervous system and sense organs; E78.5 Hyperlipidemia, unspecified
CPT/HCPCS: 36415; 80053; 80061; 80156; 82043; 82570; 83036; 83721